=== PATIENT | male | born 1980 | race Caucasian/White ===

== ENCOUNTER 2022-08-22 20:33 | Inpatient (IN) | payer MEDICAID, SELFPAY ==
[2022-08-22 20:11] VITALS: BP 116/57; PULSE 105; RESP 18; TEMP 37.2; O2SAT 99
--- NOTE | 2022-08-22 20:15 | ED.GENADUL_ITS ---
Discharge Plan Disposition Patient Disposition: [facility] INPATIENT Condition: Stable Discharge Details Clinical Impression: Abdominal pain, Bilateral lower extremity edema, Cirrhosis of liver Primary Care Provider: Charito,Local ED Provider: David Ruth and New Rx's Prescriptions: No Action furosemide [Lasix] 40 mg Tablet 60 mg DAILY sennosides [senna] 8.6 mg Tablet 8.6 mg QHS spironolactone 25 mg Tablet 25 mg DAILY trazodone 100 mg Tablet 100 mg QHS pantoprazole 40 mg Tablet,Delayed Release (Dr/Ec) 40 mg PO DAILY oxycodone 5 mg Capsule 5 mg BID docusate sodium [Colace] 100 mg Capsule 100 mg PO BID folic acid 1 mg Tablet 1 mg PO DAILY vitamin B6-vitamin E-magnesium Tablet 25 PO B12 Active 1,000 mcg Tablet,Chewable 500 mcg PO DAILY Medical Decision Making Patient presenting to ED with acute on chronic abdominal pain with history of alcohol cirrhosis. He has increased leg edema which has been worsening since his admission at [facility]. He does report a prior history of ascites which has required drainage. He denies fever, vomiting, diarrhea. His abdomen does appear distended and he is tender in the right lower quadrant. IV is established, laboratory studies sent, CT scan of the abdomen pelvis obtained. Patient is dosed with morphine for pain control pending study results. Patient's laboratory studies with a normal white count. He is anemic with a hemoglobin of 10 but no baseline in our records. Platelet count is normal. Chemistries with some renal insufficiency again no baseline for comparison. Electrolytes are normal except for magnesium slightly low at 1.6. Liver function with somewhat elevated total bilirubin otherwise unremarkable. Lipase normal. Urine negative. CT scan has no ascites present. He does have findings consistent with cirrhosis. He does have a normal appendix. He does have a fat-containing right inguinal hernia but no evidence of obstruction. Given the patient's localized pain to the right lower quadrant I did ask surgery, Dr. Cunha, to review CT scan. She agrees that the appendix appears completely normal. The right inguinal hernia would not require any type of acute intervention at this time. Case discussed with hospitalist given the patient's significant lower extremity edema and worsening abdominal pain in the setting of alcoholic cirrhosis of the liver. Patient is on furosemide and spironolactone with worsening edema. There is no ascites to tap. He will be admitted to hospitalist service for further evaluation and management. Lab Data Lab results reviewed: Yes I reviewed the patient's lab results. HPI General Mode of arrival: EMS . Date/Time Provider Initiated Documentation: 08/22/22 21:30 . Limitations to Documentation: no limitations . Information obtained by: patient and RN notes reviewed . HPI Narrative: Patient presents to ED by ambulance with complaint of abdominal pain, leg edema. Patient released from [facility] 2 days ago and is now in community rehab up here in [place]. He does have a history of alcohol cirrhosis and reports a history of ascites and chronic abdominal pain. He reports that while he was at [place] he had increased abdominal pain and discomfort as well as increased swelling to his lower extremities. He reports that he asked to be sent to ED down there to be evaluated but never was. He is followed by GI at [facility]. He denies fever, cough, chest pain, shortness of breath. He has had decreased oral intake. His pain is different than his usual chronic abdominal pain and is localizing to the right lower quadrant at this point. Denies any back pain. Denies any urinary difficulty. Denies any vomiting or diarrhea. Came to ED tonight because of increased pain in his abdomen. Related Data Home Medications Medication Instructions Recorded Confirmed docusate sodium 100 mg capsule 100 mg PO BID 08/22/22 08/22/22 (Colace) folic acid 1 mg tablet 1 mg PO DAILY 08/22/22 08/22/22 furosemide 40 mg tablet (Lasix) 60 mg DAILY 08/22/22 08/22/22 mecobalamin (vitamin B12) 1,000 500 mcg PO DAILY 08/22/22 08/22/22 mcg chewable tablet (B12 Active) oxycodone 5 mg capsule 5 mg BID 08/22/22 08/22/22 pantoprazole 40 mg tablet,delayed 40 mg PO DAILY 08/22/22 08/22/22 release sennosides 8.6 mg tablet (senna) 8.6 mg QHS 08/22/22 08/22/22 spironolactone 25 mg tablet 25 mg DAILY 08/22/22 08/22/22 trazodone 100 mg tablet 100 mg QHS 08/22/22 08/22/22 vitamin B6-vitamin E-magnesium 25 PO 08/22/22 tablet Allergies Allergy/AdvReac Type Severity Reaction Status Date / Time No Known Allergies Allergy Unverified 08/23/22 01:30 General Stated Complaint: Abd Prob DERICK: 3 Review of Systems Narrative: 09/08 Review of Systems completed and is negative except as stated above in HPI (Systems reviewed: Const, Eyes, ENT, Resp, CV, GI, , MSK, Skin, Neuro) PFSH All Active Problems (Updated 08/23/22 @ 02:01 by David Ruth MD) Abdominal pain (Acute) Bilateral lower extremity edema (Acute) Cirrhosis of liver (Acute) Medical History Cirrhosis of liver GERD (gastroesophageal reflux disease) Surgical History S/P hernia repair Social History Smoking/Tobacco Use Status: Current-Occasional Tobacco Type: cigarettes Smoking risk assessment performed?: Yes Alcohol Intake: former Drug use: Never Substance use type: does not use Do you feel safe at home: Yes Do you feel safe in your relationship?: Yes Exam Narrative Exam Narrative: Const: WDWN male in NAD. HEENT: NC/AT. Normal facial exam. Eyes: Normal conjunctiva and sclera. Neck: Supple. Trachea midline. Lungs: Normal respiratory effort. Lungs are clear. Cor: RRR without murmur/gallop. Good radial pulses. GI: Soft. Seems distended. Tender to palpation RLQ. No guarding. Back: No CVAT Neuro: A+O x 3. Normal speech, mentation, gait. Cranial nerves II - XII grossly intact. No gross motor or sensory deficit. Ext: No C/C. 3+ BLE to thighs Skin: Warm and dry without rash. Course Vital Signs Vital signs: Vital Signs Temperature 99.0 F 08/22/22 20:11 Pulse 105 H 08/22/22 20:11 Respiratory Rate 18 08/22/22 20:11 Blood Pressure 116/57 L 08/22/22 20:11 Pulse Oximetry 99 08/22/22 20:11 Temperature 99.0 F 08/22/22 20:11 Temperature Source Tympanic 08/22/22 20:11 Pulse 105 H 08/22/22 20:11 Respiratory Rate 18 08/22/22 20:11 Blood Pressure 116/57 L 08/22/22 20:11 Blood Pressure Position Supine 08/22/22 20:11 Pulse Oximetry 99 08/22/22 20:11 Oxygen Delivery Method Room Air 08/22/22 20:11 Oxygen Flow Rate 0 08/22/22 20:11 Pain Level 9 08/22/22 20:11
--- NOTE | 2022-08-22 20:30 | DI.CT_ITS ---
Exam(s) CT ABDOMEN PELVIS W EXAM: CT ABDOMEN PELVIS W CLINICAL HISTORY: RLQ abd pain TECHNIQUE: COMPARISON: No exams were available for comparison FINDINGS: CT examination of the abdomen and pelvis was performed with bolus infusion of 100 cc of Omnipaque 350 . Images obtained through the lung bases are unremarkable except for question minimal areas of consol idation and/or atelectasis bases bilaterally.. The liver has a a questionably mildly nodular contour raising the possibility of cirrhosis, with no e vidence of a focal mass. There does appear to be some increased prominence collateral vessels in upp er abdomen, question portal venous hypertension. There is question of wall thickening the stomach, please correlate regarding possibility of gastritis . Spleen is unremarkable in appearance.. Gallbladder and bile ducts are unremarkable. Pancreas is unremarkable in appearance. Adrenals appear normal bilaterally. Kidneys appear normal with no evidence of renal mass, hydronephrosis, or nephrolithiasis. Unremarkab le bladder. There is no evidence of abdominal or pelvic adenopathy. Abdominal aorta is of normal diameter and no abnormality is seen involving major visceral branches.. Appendix is normal. No evidence diverticulitis or bowel obstruction. Small fat containing umbilical hernia and fat and fluid containing right inguinal hernia noted.. Impression: question cirrhosis and portal venous hypertension. Minimal bibasilar pulmonary changes, minimal pneumonitis not excluded. Question gastric wall thickening, please correlate regarding the possibility of gastritis. RADIATION DOSE DELIVERED: 1,088.18mGy.cm Total DLP 1,088.18mGy.cm Total DLP !Error CTDIvol DATA REPOSITORY: All CT scans at this facility are submitted to the National Radiology Data Registry (NRDR) Dose Index Registry (DIR) with the [employer] (A[employer]). RADIATION OPTIMIZATION: All CT scans at this facility use at least one of these dose optimization te chniques: automated exposure control; mA and/or kV adjustment per patient size (includes targeted exa ms where dose is matched to clinical indication); or iterative reconstruction.
[2022-08-22 20:45] LABS: Abs Immature Grans 0.01 10^3/uL (0.0-0.06); HCT 29.3 % (40.0-50.0); HGB 10.1 g/dL (13.5-17.5); MCH 36.2 pg (27.0-33.0); MCHC 34.5 % (32.0-36.0); MCV 105 fL (80-95); MPV 9.7 fL (8.0-11.0); Platelet Count 136 10^3/uL (130-400); RBC 2.79 10^6/uL (4.36-5.78); RDW 12.3 % (11.8-14.1); RDW-SD 47.8 fL; WBC 4.41 10^3/uL (4.4-10.8)
[2022-08-22] MEDS: MORPHine 10 MG/ML VIAL 4 MG IVP (20:48)
[2022-08-22] MEDS: Omnipaque 350 MG/ML 100 ML BTL IV (20:58)
[2022-08-22] MEDS: Normal Saline Flush 10 ML SYR IVP (21:03)
[2022-08-22 21:05] LABS: ALT 44 U/L (16-63); AST 38 U/L (15-37); Albumin 3.7 g/dL (3.4-5.0); Alkaline Phosphatase 110 U/L (46-116); BUN 26 mg/dL (7-18); Bilirubin, Direct 0.4 mg/dL (0.0-0.2); Bilirubin, Total 1.3 mg/dL (0.2-1.0); CREATININE 1.5 mg/dL (0.70-1.30); Calcium 9.4 mg/dL (8.5-10.1); Chloride 100 mmol/L (98-107); Estimated GFR 59.24 (mL/min/1.73m2); Glucose 90 mg/dL (74-106); Lipase 46 U/L (73-393); Magnesium 1.6 mg/dL (1.8-2.4); Potassium 4.2 mmol/L (3.5-5.1); Sodium 135 mmol/L (136-145); Total Protein 6.9 g/dL (6.4-8.2)
[2022-08-22] MEDS: Normal Saline 1,000 ML 125 ML IV (21:09)
[2022-08-22 21:11] LABS: Absolute Basophil Count 0.04 10^3/uL (0.0-0.2); Absolute Eosinophil Count 0.26 10^3/uL (0.0-0.7); Absolute Lymphocyte Count 1.28 10^3/uL (1.2-3.4); Absolute Monocyte Count 0.57 10^3/uL (0.1-0.8); Absolute Neutrophil Count 2.25 10^3/uL (1.2-6.7); Atypical Lymphocytes % 2
[2022-08-22 21:12] LABS: Diff Comment Manual Differential; RBC Morphology Normal
--- NOTE | 2022-08-22 21:28 | DI.VRAD_ITS ---
PROCEDURE INFORMATION: Exam: CT Abdomen And Pelvis With Contrast Exam date and time: 08/22/2022 8:56 PM Age: 41 years old Clinical indication: Other: Rlq abd pain, HX of ascites and cirrhosis; Prior surgery; Surgery date: 6+ months; Surgery type: Hernia; Additional info: Rlq abd painm, HX of ascites and cirrhosis TECHNIQUE: Imaging protocol: Computed tomography of the abdomen and pelvis with contrast. Radiation optimization: All CT scans at this facility use at least one of these dose optimization techniques: automated exposure control; mA and/or kV adjustment per patient size (includes targeted exams where dose is matched to clinical indication); or iterative reconstruction. Contrast material: OMNIPAQUE 350; Contrast volume: 100 ml; Contrast route: INTRAVENOUS (IV); COMPARISON: No relevant prior studies available. FINDINGS: Lungs: Mild bibasilar atelectasis and/or scarring. Diaphragm: Minute decompressed hiatal hernia. Liver: Subtle nodular contour of the liver consistent with reported history of cirrhosis. Liver is at the upper limits of normal for size measuring 20 cm craniocaudad. No mass. Gallbladder and bile ducts: Unremarkable. No calcified stones. No ductal dilation. Pancreas: Unremarkable. No ductal dilation. Spleen: Spleen is enlarged measuring 13.3 cm craniocaudad. No mass. Adrenal glands: No adrenal mass. Kidneys and ureters: Symmetric renal enhancement without mass. No hydronephrosis. Ureters are normal in course and caliber. Stomach and bowel: Proximal stomach decompressed with nonspecific gastric mural thickening. No evidence of bowel obstruction. No focal bowel wall thickening. There is moderate colonic stool burden. Appendix: Within normal limits. Intraperitoneal space: No significant free fluid in the abdomen or pelvis. No free air. Vasculature: No abdominal aortic aneurysm. There are mild splenorenal and gastroesophageal varices. There is also recanalization of the umbilical vein with periumbilical varices. Lymph nodes: Multiple prominent but nonenlarged retroperitoneal lymph nodes as well as at the samuel hepatis. No pathologically enlarged mesenteric or retroperitoneal lymph nodes. Urinary bladder: Unremarkable as visualized. Reproductive: Unremarkable as visualized. Bones/joints: Unremarkable. No acute fracture. Soft tissues: Mild fat within the right inguinal canal with mild low-attenuation fluid within the inguinal canal. There is also small fat containing umbilical/periumbilical hernia. IMPRESSION: 1. Appendix within normal limits. 2. Subtle nodular contour of the liver consistent with reported history of cirrhosis with sequela of portal hypertension as discussed. 3. Moderate colonic stool burden. Correlate for constipation. 4. Mild fat within the right inguinal canal with mild low-attenuation fluid within the right inguinal canal. 5. Proximal stomach decompressed with nonspecific gastric mural thickening. May represent changes of incomplete distension, correlate clinically to exclude acute gastritis. 6. Additional nonacute findings as discussed. Dictated and Authenticated by: Pal Arias MD. Ordering:BARBARA Hernandez MD
[2022-08-22 21:44] LABS: INR 1.2 (0.9-1.1); PTT Activated 35.7 sec (21.0-27.5); Prothrombin Time 12.1 sec (9.3-11.0)
[2022-08-22 22:40] LABS: Bilirubin Negative (Negative); Blood Negative (Negative); Clarity Clear (Clear); Glucose Negative (Negative); Ketones Negative (Negative); Leukocyte Esterase Negative (Negative); Nitrite Negative (Negative); Specific Gravity 1.015 (1.005-1.025)
[2022-08-22] MEDS: Ketorolac 15 MG/ML VIAL IVP (23:43)
[2022-08-23] VITALS (13 sets, daily range): BP systolic 90–100; BP diastolic 50–65; PULSE 74–84; RESP 14–19; TEMP 35.6–37.1; O2SAT 93–97
--- NOTE | 2022-08-23 | DI.US_ITS ---
Exam(s) US EXTREMITY VENOUS BI EXAM: US EXTREMITY VENOUS BI CLINICAL HISTORY: BLE edema, concern for DVT. TECHNIQUE: Ultrasound performed using standard protocol. COMPARISON: No exams were available for comparison FINDINGS: Duplex venous ultrasound was performed according to the usual protocol. The deep veins are freely com pressible throughout and there is normal flow augmentation with manual calf compression. 2D and Doppl er evaluation are unremarkable. IMPRESSION: No evidence of deep venous thrombosis of the right or left lower extremity. DATA REPOSITORY:
[2022-08-23] MEDS: MORPHine 4 MG/ML SYR IVP ×4 (01:31→21:33)
[2022-08-23 01:32] LABS: Source Nasal/Nares
[2022-08-23 01:59] LABS: COVID-19 PCR Negative (Negative)
[2022-08-23] MEDS: Furosemide 40 MG/4 ML VIAL IVP (02:09)
[2022-08-23] MEDS: Normal Saline Flush 10 ML SYR IVP ×5 (03:42→21:34)
--- NOTE | 2022-08-23 04:09 | W.PM.HP.N ---
Date of service: 08/23/22 Time of Service: 04:09 Assessment and Plan Assessment and plan (1) Abdominal pain: Status: Acute Assessment and plan: It is possible that the fat-containing hernia is painful. However, the patient also endorses urinary sx. Will order bladder scans. (2) Bilateral lower extremity edema: Status: Acute Assessment and plan: Suspect due to hypoalbuminemic state. HOwever, will also rule out a DVT. Diurese with combination of IV lasix and increased dose of aldactone. (3) Cirrhosis of liver: Status: Chronic Assessment and plan: As above. Alcoholic cirrhosis. (4) Anemia: Status: Chronic Assessment and plan: Check b12 and folate levels (5) Dysuria: Status: Acute Assessment and plan: No evidence of a UTI by UA. Will check GC/chlamydia urine. The patient states he does not have a h/o herpes. (6) Alcohol abuse: Assessment and plan: States last drinke was >3 weeks ago. Will write for thiamine and MVI and check vitamin B12 and folate levels, as above (7) Tobacco abuse: Assessment and plan: advised to quit. Will provide a nicotine patch. (8) DVT prophylaxis: Status: Acute Assessment and plan: SC heparin (9) Discharge planning issues: Status: Acute Assessment and plan: Full code History of Present Illness History of Present Illness Chief Complaint: Abdominal pain Narrative: Mr Guerrero is a 41 year old male with PMHx of alcoholic cirrhosis with previous history of ascites requiring paracenthesis, as well as h/o pancreatitis, alcohol abuse, alcohol withdrawal seizures in the past, who presented to [facility] ED c/o RLQ pain. He endorses some nausea, but no vomiting, and denies diarrhea. States his stools have been brown and he has not seen blood. His last drink was about 3 weeks ago. He states that he tried to drink himself to to commit suicide and was hospitalized at [facility] for 2-3 weeks. He was discharged 3 days ago and since then has not been drinking. He also endorses dysuria. CT abdomen ruled out acute appendicitis, and surgical review of the CT agreed with that assessment. He does have an inguinal hernia which contains fat and does not require surgical intervention. He did not have ascites by CT. He was found to be edematous. Admission to the hospitalist service was requested for diuresis and management of abdominal pain. Review of Systems All systems reviewed & are unremarkable except as noted in HPI and below PFSH All Active Problems (Updated 08/23/22 @ 04:26 by Ilana Dietz MD) Discharge planning issues (Acute) DVT prophylaxis (Acute) Dysuria (Acute) Anemia (Chronic) Abdominal pain (Acute) Bilateral lower extremity edema (Acute) Cirrhosis of liver (Chronic) Medical History (Updated 08/23/22 @ 04:26 by Ilana Dietz MD) Alcohol abuse Cirrhosis of liver GERD (gastroesophageal reflux disease) Pancreatitis Suicide attempt Tobacco abuse Surgical History (Updated 08/23/22 @ 04:18 by Ilana Dietz MD) S/P abdominal paracentesis S/P hernia repair Family History (Updated 08/23/22 @ 04:17 by Ilana Dietz MD) Mother Heart disease Stroke Diabetes Hypertension Maternal Grandfather Diabetes Hypertension Maternal Grandmother Hypertension Social History Smoking/Tobacco Use Status: Current-Occasional Tobacco Type: cigarettes Smoking risk assessment performed?: Yes Alcohol Intake: former Drug use: Never Substance use type: does not use Do you feel safe at home: Yes Do you feel safe in your relationship?: Yes Meds Allergies and Home Medications Allergies Allergy/AdvReac Type Severity Reaction Status Date / Time No Known Allergies Allergy Unverified 08/23/22 01:30 Home Medications Medication Instructions Recorded Confirmed Type docusate sodium 100 mg capsule 100 mg PO BID 08/22/22 08/22/22 History (Colace) folic acid 1 mg tablet 1 mg PO DAILY 08/22/22 08/22/22 History furosemide 40 mg tablet (Lasix) 60 mg DAILY 08/22/22 08/22/22 History mecobalamin (vitamin B12) 1,000 500 mcg PO DAILY 08/22/22 08/22/22 History mcg chewable tablet (B12 Active) oxycodone 5 mg capsule 5 mg BID 08/22/22 08/22/22 History pantoprazole 40 mg tablet,delayed 40 mg PO DAILY 08/22/22 08/22/22 History release sennosides 8.6 mg tablet (senna) 8.6 mg QHS 08/22/22 08/22/22 History spironolactone 25 mg tablet 25 mg DAILY 08/22/22 08/22/22 History trazodone 100 mg tablet 100 mg QHS 08/22/22 08/22/22 History vitamin B6-vitamin E-magnesium 25 PO 08/22/22 History tablet Exam Narrative Exam Narrative: General: Somnolent middle-aged male who keeps falling asleep in the middle of a sentence, A&Ox3, NAD Neurological: A&Ox3, no focal deficits Psychiatric: Somnolent - difficult to fully assess. Denies SI. Skin: Visible skin intact HEENT: Atraumatic, normocephalic, EOMI, MMM, clear oropharynx, poor dental hygiene, no submandibular or cervical lymphadenopathy, no goiter or JVD Cardiovascular: RRR, no m/r/g Lungs: CTAB Gastrointestinal: soft, tender in BLQ, R>L Genitourinary: deferred Extremities: 2+ BLE edema, symmetric, no c/c. Results Imaging Additional studies: CT abdomen/pelvis w/ contrats: 1. Appendix within normal limits. 2. Subtle nodular contour of the liver consistent with reported history of cirrhosis with sequela of portal hypertension as discussed. 3. Moderate colonic stool burden. Correlate for constipation. 4. Mild fat within the right inguinal canal with mild low-attenuation fluid within the right inguinal canal. 5. Proximal stomach decompressed with nonspecific gastric mural thickening. May represent changes of incomplete distension, correlate clinically to exclude acute gastritis. 6. Additional nonacute findings as discussed. Labs Result diagrams: 08/22/22 20:40 08/22/22 20:40 Labs: Laboratory Results - last 24 hr 08/22/22 08/22/22 08/22/22 20:40 20:40 20:40 WBC 4.41 RBC 2.79 L Hgb 10.1 L Hct 29.3 L MCV 105 H MCH 36.2 H MCHC 34.5 RDW 12.3 Plt Count 136 MPV 9.7 Immature Gran % 0.0 Neutrophils % 51.0 Lymphocytes % 27.0 Atypical Lymphs % 2 Monocytes % 13.0 Eosinophils % 6.0 Basophils % 1.0 Nucleated RBC % 0.0 Absolute Neutrophils 2.25 Absolute Lymphocytes 1.28 Absolute Monocytes 0.57 Absolute Eosinophils 0.26 Absolute Basophils 0.04 RBC Morphology Normal PT 12.1 H INR 1.2 H APTT 35.7 H Sodium 135 L Potassium 4.2 Chloride 100 Carbon Dioxide 29.0 Anion Gap 6.0 BUN 26 H Creatinine 1.5 H Est GFR (CKD-EPI 2020) 59.24 Glucose 90 Calcium 9.4 Magnesium 1.6 L Total Bilirubin 1.3 H Conjugated Bilirubin 0.4 H AST 38 H ALT 44 Alkaline Phosphatase 110 Total Protein 6.9 Albumin 3.7 Lipase 46 Urine Color Urine Clarity Urine pH Ur Specific [place] Urine Protein Urine Ketones Urine Blood Urine Nitrite Urine Bilirubin Urine Urobilinogen Ur Leukocyte Esterase Urine Glucose COVID-19 Source SARS-CoV-2 (PCR) 08/22/22 08/23/22 22:35 01:28 WBC RBC Hgb Hct MCV MCH MCHC RDW Plt Count MPV Immature Gran % Neutrophils % Lymphocytes % Atypical Lymphs % Monocytes % Eosinophils % Basophils % Nucleated RBC % Absolute Neutrophils Absolute Lymphocytes Absolute Monocytes Absolute Eosinophils Absolute Basophils RBC Morphology PT INR APTT Sodium Potassium Chloride Carbon Dioxide Anion Gap BUN Creatinine Est GFR (CKD-EPI 2020) Glucose Calcium Magnesium Total Bilirubin Conjugated Bilirubin AST ALT Alkaline Phosphatase Total Protein Albumin Lipase Urine Color Yellow Urine Clarity Clear Urine pH 7.0 Ur Specific [place] 1.015 Urine Protein Negative Urine Ketones Negative Urine Blood Negative Urine Nitrite Negative Urine Bilirubin Negative Urine Urobilinogen 1.0 H Ur Leukocyte Esterase Negative Urine Glucose Negative COVID-19 Source Nasal/Nares SARS-CoV-2 (PCR) Negative Last Vital Signs Temp 36.4 C L 08/23/22 02:32 Pulse 78 08/23/22 02:32 Resp 19 08/23/22 02:32 BP 98/60 L 08/23/22 02:32 Pulse Ox 97 08/23/22 02:32 PAWSS Have you Been Recently Intoxicated or Drunk Within the Last 30 days?: Yes Have you Ever Experienced Previous Episodes of Alcohol Withdrawal?: Yes Have you ever Experienced Withdrawal Seizures?: No Have you ever Experienced Delirium Tremens(DT)s?: No Have you ever undergone Alcohol Rehabilitation Treatment (i.e, inpt ot outpatient treatment programs)?: Yes Have you ever Experienced Blackouts?: No Have you ever Combined Alcohol with other Downers within the last 90 days?: Yes Have you ever Combined Alcohol with any other Substance of Abuse during the last 90 days?: Yes Positive Blood Alcohol level on Presentation? [PCS.BAL]: No Evidence of Increased Autonomic Activity (i.e. HR>120, tremor, sweating, agitation, nausea)?: No Result: 5
[2022-08-23] MEDS: Heparin 5,000 UNITS/ML VIAL 5000 UNITS SC ×3 (05:24→21:20)
[2022-08-23 07:40] LABS: Abs Immature Grans 0.01 10^3/uL (0.0-0.06); Absolute Basophil Count 0.05 10^3/uL (0.0-0.2); Absolute Eosinophil Count 0.31 10^3/uL (0.0-0.7); Absolute Lymphocyte Count 1.08 10^3/uL (1.2-3.4); Absolute Monocyte Count 0.62 10^3/uL (0.1-0.8); Absolute Neutrophil Count 1.18 10^3/uL (1.2-6.7); Basophils % 1.5; Eosinophils % 9.5; HCT 29.8 % (40.0-50.0); HGB 10.3 g/dL (13.5-17.5); Immature Grans % 0.3; Lymphocytes % 33.2; MCH 35.8 pg (27.0-33.0); MCHC 34.6 % (32.0-36.0); MCV 104 fL (80-95); MPV 9.9 fL (8.0-11.0); Monocytes % 19.1; Neutrophils % 36.4; Platelet Count 130 10^3/uL (130-400); RBC 2.88 10^6/uL (4.36-5.78); RDW 12.3 % (11.8-14.1); RDW-SD 46.5 fL; WBC 3.25 10^3/uL (4.4-10.8)
[2022-08-23] MEDS: Furosemide 40 MG/4 ML VIAL 60 MG IVP (08:04)
[2022-08-23] MEDS: Thiamine 100 MG TAB PO (08:05)
[2022-08-23] MEDS: oxyCODONE 5 MG TAB PO ×2 (08:05→19:45)
[2022-08-23] MEDS: Folic Acid 1 MG TAB PO (08:05)
[2022-08-23] MEDS: Pantoprazole 40 MG TABCR PO (08:05)
[2022-08-23] MEDS: Multivitamin TAB 1 TAB PO (08:05)
[2022-08-23] MEDS: Cyanocobalamin 500 MCG TAB PO (08:05)
[2022-08-23] MEDS: Spironolactone 50 MG TAB PO ×2 (08:05→19:45)
[2022-08-23 08:27] LABS: Anion Gap 7.5 mmol/L (3-11); BUN 26 mg/dL (7-18); CO2 28.5 mmol/L (21.0-32.0); CREATININE 1.4 mg/dL (0.70-1.30); Calcium 9.4 mg/dL (8.5-10.1); Chloride 104 mmol/L (98-107); Estimated GFR 64.36 (mL/min/1.73m2); Glucose 88 mg/dL (74-106); Magnesium 1.8 mg/dL (1.8-2.4); Potassium 3.9 mmol/L (3.5-5.1); Sodium 140 mmol/L (136-145)
[2022-08-23 08:43] LABS: Folate 19.2 ng/mL (8.6-20.0); Vitamin B12 452 pg/mL (193-986)
[2022-08-23] MEDS: Acetaminophen 325 MG TAB PO ×3 (09:50→19:44)
--- NOTE | 2022-08-23 10:04 | PDOC.CMIN ---
- If Service Date Differs Date of service: 08/23/22 Time of Service: 10:04 Care Management Initial Assess REASON FOR HOSPITALIZATION:: Anasarca, Abdominal pain PAST MEDICAL HISTORY/PAST SURGICAL HISTORY:: All Active Problems (Updated 08/23/22 @ 04:26 by Ilana Dietz MD). Discharge planning issues (Acute). DVT prophylaxis (Acute). Dysuria (Acute). Anemia (Chronic). Abdominal pain (Acute). Bilateral lower extremity edema (Acute). Cirrhosis of liver (Chronic). Medical History (Updated 08/23/22 @ 04:26 by Ilana Dietz MD). Alcohol abuse. Cirrhosis of liver. GERD (gastroesophageal reflux disease). Pancreatitis. Suicide attempt. Tobacco abuse. Surgical History (Updated 08/23/22 @ 04:18 by Ilana Dietz MD). S/P abdominal paracentesis. S/P hernia repair PREVIOUS FUNCTIONAL STATUS/SOCIAL/FAMILY SUPPORTS:: Mc lives in [facility] in a sober house following his discharge from an inpatient substance use treatment program. He is originally from [place]. Mc has no children and identifies his mother and sister as his strongest supports. They live in [place]. He receives SSDI but no other services in the community. CURRENT FUNCTIONAL STATUS:: Mc was sitting up in bed when CM met with him. He was awake and polite, but did not volunteer much information. Mc has reportedly had a lot of pain today but he has also been hypotensive, so administering effective pain medicine has been challenging. Mc informed CM that he noticed at home that his abdomen and legs were swelling and this has happened before when he needed to be tapped (paracentesis). That, and increasing abdominal pain, was why he presented to the hospital. ADVANCE DIRECTIVES:: on file. Fay Dennis (mother) [facility] Has patient been provided with info about the portal/API?: Yes Did the patient sign up for the portal?: No CODE STATUS:: Full Code INSURANCE COVERAGE / FINANCIAL ISSUES:: Medicaid CURRENT HOME/COMMUNITY SERVICES/EQUIPMENT:: SSDI PRIMARY CARE PHYSICIAN:: none locally POTENTIAL DISCHARGE NEEDS:: establish with a new PCP PATIENT/FAMILY EDUCATION NEEDS:: Review of discharge instructions, limitations, activity, follow up plan, medications, Ask Me Three TRANSPORTATION:: via private vehicle with mother PLAN:: Anticipate Mc will be discharged home with no new services. He will follow up with the community provider identified by [facility] prior to discharge and transport via private vehicle.CM will offer support to Mc and assess for ongoing discharge concerns.
--- NOTE | 2022-08-23 11:35 | NUR.NOTE ---
Nursing Note: At approximately 1135 on 08/23/22, this RN answered a phone call from Fay Dennis (pt.'s mother - on HIPAA). RN updated pt.'s mother regarding pt.'s mentation, VS, pain level and pain management techniques (medications), CT scan results, plan of care, discharge plan, etc. Pt.'s mother verbalized understanding and presented with a few questions that were answered. Pt.'s mother was asking about the hospital's visitor policy and visiting hours and was given the appropriate information. Pt.'s mother states that she may call back later and ask to be transferred in to pt.'s room to speak with him on the phone.
[2022-08-23] MEDS: Ketorolac 30 MG/ML VIAL IVP (17:38)
[2022-08-23] MEDS: Docusate Sodium 100 MG CAP PO (19:45)
[2022-08-23] MEDS: Senna TAB 1 TAB PO (21:20)
[2022-08-23] MEDS: traZODone 100 MG TAB PO (21:20)
[2022-08-24 03:03] VITALS: BP 102/62; PULSE 72; RESP 16; TEMP 37.4; O2SAT 98
[2022-08-24] MEDS: MORPHine 4 MG/ML SYR IVP (03:33)
[2022-08-24] MEDS: Normal Saline Flush 10 ML SYR IVP (03:33)
[2022-08-24 07:00] LABS: Absolute Basophil Count 0.05 10^3/uL (0.0-0.2); Absolute Eosinophil Count 0.42 10^3/uL (0.0-0.7); Absolute Lymphocyte Count 1.17 10^3/uL (1.2-3.4); Absolute Monocyte Count 0.61 10^3/uL (0.1-0.8); Absolute Neutrophil Count 1.37 10^3/uL (1.2-6.7); Basophils % 1.4; Eosinophils % 11.6; HCT 29.9 % (40.0-50.0); HGB 9.9 g/dL (13.5-17.5); Lymphocytes % 32.3; MCH 35.2 pg (27.0-33.0); MCHC 33.1 % (32.0-36.0); MCV 106 fL (80-95); MPV 9.9 fL (8.0-11.0); Monocytes % 16.9; Neutrophils % 37.8; Platelet Count 135 10^3/uL (130-400); RBC 2.81 10^6/uL (4.36-5.78); RDW 12.2 % (11.8-14.1); WBC 3.62 10^3/uL (4.4-10.8)
[2022-08-24 07:22] LABS: ALT 35 U/L (16-63); AST 30 U/L (15-37); Albumin 3.1 g/dL (3.4-5.0); Alkaline Phosphatase 102 U/L (46-116); Anion Gap 4.6 mmol/L (3-11); BUN 34 mg/dL (7-18); CO2 30.4 mmol/L (21.0-32.0); CREATININE 1.6 mg/dL (0.70-1.30); Calcium 9.2 mg/dL (8.5-10.1); Chloride 104 mmol/L (98-107); Estimated GFR 54.83 (mL/min/1.73m2); Glucose 83 mg/dL (74-106); Sodium 139 mmol/L (136-145); Total Protein 6.2 g/dL (6.4-8.2)
[2022-08-24 07:50] VITALS: BP 95/52; PULSE 77; RESP 16; TEMP 36.6; O2SAT 99
--- NOTE | 2022-08-24 08:43 | PDOC.CMPRO ---
- If Service Date Differs Date of service: 08/24/22 Time of Service: 08:43 Care Management Progress Note S/O: A: Mc is a 41 year old man admitted on 08/22/22 with abdominal pain P:Anticipate Mc will be discharged home with no new services. He will follow up with the community provider identified by [facility] prior to discharge and transport via private vehicle. will offer support to Mc and assess for ongoing discharge concerns.
[2022-08-24] MEDS: Pantoprazole 40 MG TABCR PO (08:57)
[2022-08-24] MEDS: Multivitamin TAB 1 TAB PO (08:57)
[2022-08-24] MEDS: Thiamine 100 MG TAB PO (08:57)
[2022-08-24] MEDS: Cyanocobalamin 500 MCG TAB PO (08:57)
[2022-08-24] MEDS: Folic Acid 1 MG TAB PO (08:57)
[2022-08-24] MEDS: oxyCODONE 5 MG TAB PO (08:58)
[2022-08-24] MEDS: Spironolactone 50 MG TAB PO (08:58)
--- NOTE | 2022-08-24 09:48 | W.PM.DS.N ---
Date of service: 08/24/22 Time of Service: 09:48 DS: Diagnosis Discharge Diagnosis (1) Abdominal pain: Status: Acute Asessment and Plan: No evidence of SBP. No fever or elevated WBC count + questionable gastric wall thickening on CT; gastritis likely. Cont pantoprazole. Improved and tolerating oral intake. (2) Bilateral lower extremity edema: Status: Acute Asessment and Plan: Secondary to cirrhosis. He is aware of need to limit Na intake. Increased his spironolactone to 50mg BID. Will decrease lasix to 20mg daily. (3) Cirrhosis of liver: Status: Chronic Asessment and Plan: He will continue to follow up with his physician in [place] that manages this. (4) Anemia: Status: Chronic Asessment and Plan: Hgb 10.1 > 10.3 > 9.9. Secondary to chronic alcohol abuse and cirrhosis. Monitor. (5) Dysuria: Status: Acute Asessment and Plan: UA negative. (6) Alcohol abuse: Asessment and Plan: He is now in a sobriety house. Discharge Plan Disposition Patient Disposition: HOME Condition: Stable Discharge Details Reason For Visit: Anasarca, acute on chronic abdominal pain Admit Date/Time: 08/22/22 23:38 Admit Provider: Ilana Dietz Attending Provider: Ilana Dietz [facility]: Mr Guerrero is a 41 year old male with PMHx of alcoholic cirrhosis with previous history of ascites requiring paracenthesis, as well as h/o pancreatitis, alcohol abuse, alcohol withdrawal seizures in the past, who presented to [facility] ED c/o RLQ pain. He endorses some nausea, but no vomiting, and denies diarrhea. States his stools have been brown and he has not seen blood. His last drink was about 3 weeks ago. He states that he tried to drink himself to to commit suicide and was hospitalized at [facility] for 2-3 weeks. He was discharged 3 days ago to a sober house in [facility] and since then has not been drinking. He also endorses dysuria. CT abdomen ruled out acute appendicitis, and surgical review of the CT agreed with that assessment.? He does have an inguinal hernia which contains fat and does not require surgical intervention. He did not have ascites by CT. He was found to be edematous. Admission to the hospitalist service was requested for diuresis and management of abdominal pain. Volume overload suspected to be secondary to hypoalbuminemic state. DVT ruled out. Diurese with combination of IV lasix and increased dose of aldactone. He diuresed well; he notes particular improvement in the edema of his feet. His creatinine remained stable: 1.5>1.4>1.6. No supplemental O2 requirement. See Diagnosis He should follow up with on-call provider in 1-2 weeks. He has not established with a local PCP. Home Meds and New Rx's Prescriptions: No Action furosemide [Lasix] 40 mg Tablet 60 mg DAILY sennosides [senna] 8.6 mg Tablet 8.6 mg QHS spironolactone 25 mg Tablet 25 mg DAILY trazodone 100 mg Tablet 100 mg QHS pantoprazole 40 mg Tablet,Delayed Release (Dr/Ec) 40 mg PO DAILY oxycodone 5 mg Capsule 5 mg BID docusate sodium [Colace] 100 mg Capsule 100 mg PO BID folic acid 1 mg Tablet 1 mg PO DAILY vitamin B6-vitamin E-magnesium Tablet 25 PO B12 Active 1,000 mcg Tablet,Chewable 500 mcg PO DAILY Discharge Instructions Instructions: Cirrhosis (DC) Activity:: Activity as Tolerated Equipment/Supplies:: No Equipment Needed Diet:: Low Sodium Discharge Orders Discharge Orders: Discharge Order (Routine); Ordered 08/24/22 Ordered By: Larry Guzman DS: Summary Time Spent with Patient providing and/or coordinating discharge services: Greater than 30 minutes Status at Discharge Functional status at discharge: independent ambulation Overall status at discharge: patient is progressing back to baseline Mental Status: mental status grossly normal Speech and Movement: speech clear Mood: euthymic mood Affect: blunted Exam Narrative Exam Narrative: General: male. Alert. Cooperative. Neurological: A&Ox3, no focal deficits Psychiatric:affect flat. Speech clear. HEENT:sclera clear. MMM Cardiovascular: RRR, no m/r/g Lungs: CTAB Gastrointestinal: soft, tender in BLQ, R>L; mild. Extremities: BLE nonpitting edema. No calf tenderness. Tenderness along bilateral anterior tibias. Psych Mental Status: mental status grossly normal Speech and Movement: speech clear Mood: euthymic mood Affect: blunted DS: Data Vitals/I&O Vitals and I&O: Vital Signs Temperature 36.6 C 08/24/22 07:50 Temperature Source Tympanic 08/24/22 07:50 Pulse 77 08/24/22 07:50 Pulse Rhythm Regular 08/23/22 21:57 Respiratory Rate 16 08/24/22 07:50 Respiratory Effort 08/23/22 21:57 Respiratory Depth Shallow 08/23/22 21:57 Respiratory Pattern Normal 08/23/22 21:57 Blood Pressure 95/52 L 08/24/22 07:50 Blood Pressure Position Supine 08/22/22 20:11 Pulse Oximetry 99 08/24/22 07:50 Oxygen Delivery Method Room Air 08/24/22 07:50 Oxygen Flow Rate 0 08/24/22 07:50 Pain Level 8 08/24/22 08:58 Comment 08/24/22 07:50 Intake & Output 08/23/22 08/23/22 08/24/22 11:59 23:59 11:59 Intake Total 1037.5 / 1699.5 662 / 1699.5 Output Total 2850 / 3300 450 / 3300 401 / 401 Balance -1812.5 / -1600.5 212 / -1600.5 -401 / -401 Weight 90.718 kg Intake: IV 637.5 / 637.5 Oral 400 / 1062 662 / 1062 Output: Urine 2850 / 3300 450 / 3300 401 / 401 Other: Urine Color Pale Yellow Yellow Yellow Urine Appearance Clear Clear Clear Urine Odor Normal None Comment Void x1 in the urinal. bladder scan =23ml Voiding Methods Urinal Urinal Urinal Data Completed and Pending Labs on day of discharge: Labs from last 24 hours 08/24/22 08/24/22 06:03 06:03 WBC 3.62 L RBC 2.81 L Hgb 9.9 L Hct 29.9 L MCV 106 H MCH 35.2 H MCHC 33.1 RDW 12.2 Plt Count 135 MPV 9.9 Immature Gran % 0.0 Neutrophils % 37.8 Lymphocytes % 32.3 Monocytes % 16.9 Eosinophils % 11.6 Basophils % 1.4 Nucleated RBC % 0.0 Absolute Neutrophils 1.37 Absolute Lymphocytes 1.17 L Absolute Monocytes 0.61 Absolute Eosinophils 0.42 Absolute Basophils 0.05 Sodium 139 Potassium 4.0 Chloride 104 Carbon Dioxide 30.4 Anion Gap 4.6 BUN 34 H Creatinine 1.6 H Est GFR (CKD-EPI 2020) 54.83 Glucose 83 Calcium 9.2 Total Bilirubin 1.0 AST 30 ALT 35 Alkaline Phosphatase 102 Total Protein 6.2 L Albumin 3.1 L PFSH All Active Problems Discharge planning issues (Acute) DVT prophylaxis (Acute) Dysuria (Acute) Anemia (Chronic) Abdominal pain (Acute) Bilateral lower extremity edema (Acute) Cirrhosis of liver (Chronic) Medical History Alcohol abuse Cirrhosis of liver GERD (gastroesophageal reflux disease) Pancreatitis Suicide attempt Tobacco abuse Surgical History S/P abdominal paracentesis S/P hernia repair Family History Mother Heart disease Stroke Diabetes Hypertension Maternal Grandfather Diabetes Hypertension Maternal Grandmother Hypertension Social History Smoking/Tobacco Use Status: Current-Occasional Tobacco Type: cigarettes Smoking risk assessment performed?: Yes Alcohol Intake: former Drug use: Never Substance use type: does not use Do you feel safe at home: Yes Do you feel safe in your relationship?: Yes
[2022-08-24 11:14] VITALS: BP 108/66; PULSE 80; RESP 16; TEMP 36.8; O2SAT 98
[2022-08-24] MEDS: Heparin 5,000 UNITS/ML VIAL 5000 UNITS SC (14:11)
[2022-08-24] MEDS: Ketorolac 30 MG/ML VIAL IM (14:11)
[2022-08-24 15:38] LABS: Chlamydia Result Negative (Negative); GC Result Negative (Negative)
--- NOTE | 2022-08-24 16:24 | PDOC.MHCN_ITS ---
Date of service: 08/24/22 Time of Service: 13:40 PHQ-9 Over the last 2 weeks, how often have you been bothered by any of the following problems? 1. Little interest or pleasure in doing things: nearly every day 2. Feeling down, depressed, or hopeless: more than half the days 3. Trouble falling or staying asleep, or sleeping too much: nearly every day (The last 4 years) 4. Feeling tired or having little energy: nearly every day 5. Poor appetite or overeating: several days 6. Feeling bad about yourself - or that you are a failure or have let yourself and your family down: nearly every day (Client reports forever) 7. Trouble concentrating on things, such as reading the newspaper or watching television: nearly every day 8. Moving or speaking so slowly that other people could have noticed? - Or the opposite - being so fidgety or restless that you have been moving around a lot more than usual: nearly every day 9. Thoughts that you would be better off or of hurting yourself in some way: several days (Client reports one time about 4-5 weeks ago) Total score: 22 If you checked off any problems, how difficult have these problems made it for you to do your work, take care of things at home, or get along with other people?: somewhat difficult Source: Developed by Drs. David Sevilla, Keiko Gonzalez, Dank Cox and colleagues, with an educational ana from [employer]. Suicide Severity Rate CSSRS Have you wished you were or wished you could go to sleep and not wake up?: Yes Have you actually had any thoughts of killing yourself?: No CSSRS3 Have you ever done anything, started to do anything or prepared to do anything to end your life?: Yes CSSRS4 Was this within the past three months?: Yes Screening Score Total Score: 6 Screening: Positive Mental Health Emergency Note Release HS release signed:: No Reason for Visit Client presents to [facility] ED on 08/23/2022 via [place] with chief complaint of severe abdominal pain. Client had been living at [facility] and received a phone call today that he was not welcome to return there as he was too much of a liability. After hearing the news client made vague SI statements and became very tearful. In the last 2 weeks has the pt presented for ES prior to today?: No Client Information Client is: New Well Housed: No,status: Not homeless, Unstable housing Non Suicidal Self Injury Current: No History: yes, Client reports hx of self harm via excessive alcohol intake and recreational drugs. Safety Risk/Harm to Self or Others Current Ideation to Harm Self or Others: No Risk: Does risk to harm exist?: No Duty to warn indicated: No Asssessment/Mental Status Appearance: Disheveled Attitude: Cooperative and Other (Client was cooperative throughout most of the assessment, however towards the end states: I am done talking to you. ) Behavior: Unremarkable Speech: Soft and Slow Affect: Flat Mood: Sad, Stressed, Depressed, Anxious and Irritable Thought process: Unremarkable Hallucinations: No Delusions: No Attention: Wandering Perception: Not impaired Orientation: Fully orientated Memory: Intact Insight: Fair Judgement: Fair Neurovegetative Symptoms Sleep: Decrease (Client reports that he has interrupted sleep.) Appetitie: Decrease (Client reports poor appetite. ) Interests: Decrease (Client reports: nothing anymore.) Energy: Decrease (Client reports very low energy) Libido: Not applicable Substance Use: Other (Client reports that he has been sober for 5 weeks, prior he reports that he would drink at least 1/5th of liquor daily. ) Do you use nicotine?: No Have you used substances in the last 7 days?: No Additional Issues: Assaultive/Threatening Behavior: No Medical Concerns: No Client engaged in active self harm w/weapon: No Threatening to run away: No Child reported abuse/neglect: No Voluntarily presenting for services: Yes Domestic violence is a concern: No Extreme Psychosis or extreme behavior is present: No Impression Client is laying down in hospital bed when this song writer arrives via zoom. Client appears to be guarded and is tearful throughout assessment. Client reports that he had extreme abdominal pain yesterday and thought he was doing the right thing by coming to the hospital. Client reports that a couple of hours ago he learned that he was not going to be able back to his temporary housing at the [employer] program. Client states prior to him coming to [facility] he had been at [place] for 2 weeks and was at [facility] 3weeks prior to that. Client reports that he has minimal natural supports and is not able to identify strengths or what he needs right now. Client appears to be struggling with housing and refuses resources by this song writer. Resources Reosurces reviewed and given:: Other (Client refused resources when this song writer attempted to provide them. ) Plan/Disposition Recommended Disposition: Other. Plan: This song writer was attempting to create safety plan with client to complete at the least check-in phone calls, however client states: I am done talking to you. This song writer was able to get clients phone number so outreach will be attempted. Person reported agreement to plan: No Reports/communication Outcome discussed with: ED/Personnel (Verbal passover given to [facility] animal care supervisor Emily Velasquez. )
--- NOTE | 2022-08-24 18:09 | PDOC.CMDIS ---
- If Service Date Differs Date of service: 08/24/22 Time of Service: 18:09 LACE Index Scoring Tool - Questions: Length of Stay (in days): 2 Acuity (Admit via E.D.?): Yes Comorbidities: Liver or Renal Disease E.D. Visits: 1 - Answers: Total Score: 11 Risk of Readmission: High Risk Care Management Discharge Reason for Hospitalization: Anasarca, Abdominal pain Discharge Plan: Mc was living at [facility] at the time of his admission to the hospital. He was ready for discharge and called to notify them he was returning today and was told he could not come back. Reportedly he was told he was too much of a liability. Mc became very sad and cried. CM requested a mental health assessment as Mc has recently been at [facility] and [place] for SI.He was screened and cleared by [facility]. They will follow up with check in calls for the next couple of days. Mc will stay with his mother in [place] for the time being and she will transport him home. Patient/Family Education Needs: Review of discharge instructions, limitations, activity, follow up plan, medications, Ask Me Three
== END 2022-08-24 14:21 | disposition home or self-care (01) | DRG 392 ==
LOC: ER 08-23 02:01 → MS 08-23 02:29
PROVIDERS: Family Medicine; Admitting Provider Internal Medicine; Emergency Provider Emergency Medicine; Visit Provider Internal Medicine
DX: K29.70 Gastritis, unspecified, without bleeding (principal); K70.30 Alcoholic cirrhosis of liver without ascites; D64.9 Anemia, unspecified; K40.90 Unilateral inguinal hernia, without obstruction or gangrene, not specified as recurrent; R60.0 Localized edema; K21.9 Gastro-esophageal reflux disease without esophagitis; F17.210 Nicotine dependence, cigarettes, uncomplicated; R30.0 Dysuria
CPT/HCPCS: 36415; 80048; 80053; 80076; 83690; 87491; 87591; 87635; 96361; 96374; 96375; 99285; 74177; 81003; 82607; 82746; 83735; 85025; 85610; 85730; 93970; 99223; 99239; J1644; J1885; J1940; J2270; J3490

== ENCOUNTER 2022-09-08 14:46 | Emergency (ER) | payer MEDICAID, SELFPAY ==
[2022-09-08] VITALS (9 sets, daily range): BP systolic 106–123; BP diastolic 61–85; PULSE 64–90; RESP 16–20; TEMP 36.6–37; O2SAT 98–100
--- NOTE | 2022-09-08 16:00 | DI.CT_ITS ---
Exam(s) CT ABDOMEN PELVIS W EXAM: CT ABDOMEN PELVIS W CLINICAL HISTORY: RLQ pain TECHNIQUE: Imaging Protocol: Axial computed tomography images with coronal and sagittal reformatted images were created and reviewed CONTRAST MATERIAL: Intravenous: Omnipaque 350 Contrast volume:100 mL Oral: No COMPARISON: CT CT ABDOMEN PELVIS W from 08/22/2022 FINDINGS: ABDOMEN: Lung Bases: Mild dependent atelectasis, left greater than right. Liver: There is a lobular contour of the liver. No hepatic mass is seen. Gastroesophageal and upper abdominal varices are identified. No measurable mass. Portal, Superior Mesenteric, and Splenic Veins: Unremarkable. Gallbladder and Biliary Tract: No radiodense calculus or dilation. Pancreas: Normal density, no abnormal calcifications or inflammatory process. Spleen: Mildly enlarged. Adrenals: No masses seen. Kidneys: Normal size, contour and axis. No radiodense stones or obstructive uropathy. No masses seen. Abdominal Aorta: Abdominal portion non-dilated. Bowel: No obstruction or bowel wall thickening. No evidence of appendicitis. Peritoneal Cavity: There is a small amount of perihepatic ascites. No free air. Lymph Nodes: Within normal limits. Bones: Within normal limits for the patient's age. Soft Tissues: There is a fat containing paraumbilical hernia. PELVIS: Bladder: Symmetric distention, no gross wall thickening. Reproductive Organs: Mildly enlarged prostate gland. Lymph Nodes: Within normal limits. Bones: Within normal limits for the patient's age. IMPRESSION: 1. No acute abdominal or pelvic process. No evidence of appendicitis. 2. Cirrhosis of the liver with evidence of portal hypertension. 3. Stable fat containing umbilical hernia. RADIATION DOSE DELIVERED: 1,010.1mGy.cm Total DLP DATA REPOSITORY: All CT scans at this facility are submitted to the National Radiology Data Registry (NRDR) Dose Index Registry (DIR) with the [employer] (ACR). RADIATION OPTIMIZATION: All CT scans at this facility use at least one of these dose optimization te chniques: automated exposure control; mA and/or kV adjustment per patient size (includes targeted exa ms where dose is matched to clinical indication); or iterative reconstruction.
--- NOTE | 2022-09-08 16:07 | ED.GENADUL_ITS ---
Discharge Plan Disposition Patient Disposition: HOME Condition: Improving Discharge Details Clinical Impression: Abdominal pain in male, Right inguinal hernia Primary Care Provider: Charito,Local ED Provider: Robinson Coleman Home Meds and New Rx's Prescriptions: Continued furosemide [Lasix] 40 mg Tablet 60 mg DAILY sennosides [senna] 8.6 mg Tablet 8.6 mg PO QHS spironolactone 25 mg Tablet 25 mg PO DAILY trazodone 100 mg Tablet 100 mg PO QHS pantoprazole 40 mg Tablet,Delayed Release (Dr/Ec) 40 mg PO DAILY oxycodone 5 mg Capsule 5 mg BID docusate sodium [Colace] 100 mg Capsule 100 mg PO BID folic acid 1 mg Tablet 1 mg PO DAILY vitamin B6-vitamin E-magnesium Tablet 1 tab PO DAILY B12 Active 1,000 mcg Tablet,Chewable 500 mcg PO DAILY Discharge Instructions Instructions: Abdominal Pain (ED) Additional Instructions: Home to rest this evening. You may use the provided oxycodone to increase your daily dose from 5 to 10 mg twice daily if needed for severe or breakthrough pain. Liquid diet and then may slowly progress to a bland diet tomorrow. Apply ice to right lower abdomen as needed for comfort. Avoid lifting greater than 10 pounds at a time. Return if develop a fever, vomiting, worsening pain, or any other acute concerns Medical Decision Making 41-year-old male presents from home with day 2 of the gradual onset of right lower quadrant abdominal pain associated with nausea and anorexia. Has not had vomiting or fever. Seems to be worse with movement. He states he has not had significant fluid retention over baseline and has continued to take his medications including spironolactone. He has a history of alcoholic cirrhosis. Patient arrives to the ER afebrile with unremarkable vital signs. IV access established, screening labs obtained and he is given analgesia and referred for CT imaging. The patient's laboratories are reassuring his white count is 5, hematocrit 37, platelets 153. INR is 1.2. Venous lactate normal. Electrolytes and basic chemistries unremarkable. AST is 30, ALT 35, total bili 1.0. Lipase is negative at 57, urinalysis reassuring and alcohol level was negative. CT scan of the abdomen and pelvis shows evidence of cirrhosis, no evidence of acute appendicitis, no free fluid or free air. Mild fat within the right inguinal canal noted. I do question some mild edematous changes of the bowel in the right lower quadrant. Patient was also evaluated by the SBIRT provider who recommended a mental health evaluation due to some ongoing depression. Patient was evaluated by the housekeeping worker and a plan for outpatient counseling and intake for per formed and completed. Patient improved with analgesia. As above there is no evidence of acute surgical findings. Discussed with him a trial of home management. He is stable and improving. HPI General Mode of arrival: ambulatory . Date/Time Provider Initiated Documentation: 09/08/22 14:53 . Limitations to Documentation: no limitations . Information obtained by: patient . History of Present Illness 41 year old M presents to the emergency department with the chief complaint of Right lower quadrant abdominal pain since yesterday, described as moderate, Quality is described as dull, and is localized to the abdomen and right. Patient reports no radiation. Patient started experiencing this hour(s) and it has been constant. Rest improves symptom(s), Movement worsens symptoms . Patient notes denies cough and fever/chills. Patient did receive the following treatments prior to arrival, none Related Data Home Medications Medication Instructions Recorded Confirmed docusate sodium 100 mg capsule 100 mg PO BID 08/22/22 09/08/22 (Colace) folic acid 1 mg tablet 1 mg PO DAILY 08/22/22 09/08/22 furosemide 40 mg tablet (Lasix) 60 mg DAILY 08/22/22 09/08/22 mecobalamin (vitamin B12) 1,000 500 mcg PO DAILY 08/22/22 09/08/22 mcg chewable tablet (B12 Active) oxycodone 5 mg capsule 5 mg BID 08/22/22 09/08/22 pantoprazole 40 mg tablet,delayed 40 mg PO DAILY 08/22/22 09/08/22 release sennosides 8.6 mg tablet (senna) 8.6 mg PO QHS 08/22/22 09/08/22 spironolactone 25 mg tablet 25 mg PO DAILY 08/22/22 09/08/22 trazodone 100 mg tablet 100 mg PO QHS 08/22/22 09/08/22 vitamin B6-vitamin E-magnesium 1 tab PO DAILY 08/22/22 09/08/22 tablet Allergies Allergy/AdvReac Type Severity Reaction Status Date / Time No Known Allergies Allergy Unverified 08/23/22 01:30 General Stated Complaint: Abd Prob DERICK: 3 Review of Systems Narrative: No recent illness, immunized against COVID-19 PFSH All Active Problems (Updated 09/08/22 @ 18:51 by Robinson Coleman MD) Abdominal pain in male (Acute) Right inguinal hernia (Acute) Anemia (Chronic) Bilateral lower extremity edema (Acute) Cirrhosis of liver (Chronic) Medical History Alcohol abuse Cirrhosis of liver GERD (gastroesophageal reflux disease) Pancreatitis Suicide attempt Tobacco abuse Surgical History S/P abdominal paracentesis S/P hernia repair Family History Mother Heart disease Stroke Diabetes Hypertension Maternal Grandfather Diabetes Hypertension Maternal Grandmother Hypertension Social History Smoking/Tobacco Use Status: Current-Occasional Tobacco Type: cigarettes Smoking risk assessment performed?: Yes Alcohol Intake: former Drug use: Occasionally Substance use type: marijuana Do you feel safe at home: Yes Do you feel safe in your relationship?: Yes Exam Narrative Exam Narrative: GEN: awake, alert, oriented 3. Pleasant, well groomed, interactive. HEAD: Normocephalic, atraumatic ENT: Mucous membranes moist, oropharynx unremarkable, External ear exam unremarkable EYES: PERRL, EOMI NECK: Full ROM, no NAFISA, no menigismus CHEST/RESP: Nontender, clear to auscultation bilateral, no wheeze/rhonchi/rales CARDIOVASCULAR: RRR, no murmur, rub zulma. 2+ Rad pulse bilateral ABDOMEN: Soft, tender in the right lower quadrant, no mass. +Bowel sounds EXT: Full ROM, no edema, no rash Neuro: Grossly normal neurologic exam, conversant, interactive. Psych: Speech fluent, thoughts congruent, affect normal Course Vital Signs Vital signs: Vital Signs Temperature 36.6 C 09/08/22 14:54 Pulse 74 09/08/22 14:54 Respiratory Rate 20 09/08/22 14:54 Blood Pressure 106/61 09/08/22 14:54 Pulse Oximetry 99 09/08/22 14:54 Temperature 36.6 C 09/08/22 14:54 Temperature Source Temporal Artery Scan 09/08/22 14:54 Pulse 74 10/14/22 14:54 Respiratory Rate 20 09/08/22 14:54 Respiratory Effort Non-Labored 09/08/22 14:58 Blood Pressure 106/61 09/08/22 14:54 Blood Pressure Position Sitting 09/08/22 14:54 Pulse Oximetry 99 09/08/22 14:54 Oxygen Delivery Method Room Air 09/08/22 14:54 Oxygen Flow Rate 0 09/08/22 14:54 Pain Level 8 09/08/22 14:54
[2022-09-08 16:33] LABS: Lactate 1.4 mmol/L (0.6-1.4)
[2022-09-08] MEDS: MORPHine 4 MG/ML SYR IVP ×2 (16:33→18:30)
[2022-09-08] MEDS: Normal Saline 1,000 ML 125 ML IV (16:35)
[2022-09-08 16:40] LABS: Abs Immature Grans 0.02 10^3/uL (0.0-0.06); Absolute Basophil Count 0.07 10^3/uL (0.0-0.2); Absolute Lymphocyte Count 1.22 10^3/uL (1.2-3.4); Absolute Monocyte Count 0.48 10^3/uL (0.1-0.8); Basophils % 1.4; Eosinophils % 5.9; HGB 12.8 g/dL (13.5-17.5); Immature Grans % 0.4; MCH 35.2 pg (27.0-33.0); MCHC 34.6 % (32.0-36.0); MCV 102 fL (80-95); MPV 9.4 fL (8.0-11.0); Monocytes % 9.4; Neutrophils % 58.9; Platelet Count 153 10^3/uL (130-400); RBC 3.64 10^6/uL (4.36-5.78); RDW 11.8 % (11.8-14.1); RDW-SD 44.3 fL; WBC 5.09 10^3/uL (4.4-10.8)
[2022-09-08 16:41] LABS: Bilirubin Negative (Negative); Blood Negative (Negative); Clarity Clear (Clear); Glucose Negative (Negative); Ketones Negative (Negative); Leukocyte Esterase Negative (Negative); Nitrite Negative (Negative); Specific Gravity 1.025 (1.005-1.025); Urobilinogen >=8.0 EU/dL (Up TO 0.2)
[2022-09-08 16:54] LABS: INR 1.2 (0.9-1.1); PTT Activated 35.2 sec (21.0-27.5); Prothrombin Time 11.8 sec (9.3-11.0)
[2022-09-08 16:56] LABS: ALT 35 U/L (16-63); AST 30 U/L (15-37); Albumin 4.2 g/dL (3.4-5.0); Alkaline Phosphatase 112 U/L (46-116); Anion Gap 6.4 mmol/L (3-11); BUN 13 mg/dL (7-18); Bilirubin, Direct 0.4 mg/dL (0.0-0.2); CO2 28.6 mmol/L (21.0-32.0); CREATININE 1.3 mg/dL (0.70-1.30); Calcium 9.5 mg/dL (8.5-10.1); Chloride 103 mmol/L (98-107); ETHANOL BLOOD < 3.0 mg/dL (<10); Estimated GFR 70.34 (mL/min/1.73m2); Glucose 88 mg/dL (74-106); Lipase 57 U/L (73-393); Potassium 4.3 mmol/L (3.5-5.1); Sodium 138 mmol/L (136-145); Total Protein 7.8 g/dL (6.4-8.2)
[2022-09-08] MEDS: Omnipaque 350 MG/ML 100 ML BTL IJ (17:24)
--- NOTE | 2022-09-08 18:21 | DI.VRAD_ITS ---
PROCEDURE INFORMATION: Exam: CT Abdomen And Pelvis With Contrast Exam date and time: 09/08/2022 5:13 PM Age: 41 years old Clinical indication: Other: Rlq pain TECHNIQUE: Imaging protocol: Computed tomography of the abdomen and pelvis with contrast. Radiation optimization: All CT scans at this facility use at least one of these dose optimization techniques: automated exposure control; mA and/or kV adjustment per patient size (includes targeted exams where dose is matched to clinical indication); or iterative reconstruction. Contrast material: 350; Contrast volume: 100 ml; Contrast route: INTRAVENOUS (IV); COMPARISON: CT ABDOMEN PELVIS W 08/22/2022 8:56 PM FINDINGS: Lungs: Bibasilar dependent subsegmental atelectasis is noted. Liver: Subtle nodular contour of the liver consistent with the history of cirrhosis. Fatty infiltration is again noted. No mass. Gallbladder and bile ducts: Unremarkable. No calcified stones. No ductal dilation. Pancreas: Unremarkable. No ductal dilation. Spleen: Spleen is mildly enlarged, unchanged. Adrenal glands: No adrenal mass. Kidneys and ureters: Symmetric renal enhancement without mass. No hydronephrosis. Ureters are normal in course and caliber. Stomach and bowel: No evidence of bowel obstruction. No focal bowel wall thickening. Appendix: Well-visualized and appears normal. Intraperitoneal space: No significant free fluid in the abdomen or pelvis. No free air. Vasculature: No abdominal aortic aneurysm. There are mild splenorenal and gastroesophageal varices. There is also recanalization of the umbilical vein with periumbilical varices. Lymph nodes: Multiple prominent but nonenlarged retroperitoneal lymph nodes as well as at the samuel hepatis. No pathologically enlarged mesenteric or retroperitoneal lymph nodes. Urinary bladder: Unremarkable as visualized. Reproductive: Unremarkable as visualized. Bones/joints: Unremarkable. No acute fracture. Soft tissues: Mild fat within the right inguinal canal with mild low-attenuation fluid within the inguinal canal. There is also small fat containing umbilical/periumbilical hernia, unchanged. IMPRESSION: 1. No evidence of acute appendicitis. 2. Cirrhosis of the liver and sequela of portal hypertension, not significantly changed from the prior exam. 3. Fat containing umbilical hernia is again noted. Dictated and Authenticated by: Monroe Lucio MD. Ordering:CHRIST Bowers MD
== END 2022-09-08 19:07 | disposition home or self-care (01) ==
PROVIDERS: Emergency Provider Emergency Medicine
DX: K40.90 Unilateral inguinal hernia, without obstruction or gangrene, not specified as recurrent (principal); K74.60 Unspecified cirrhosis of liver
CPT/HCPCS: 80053; 80076; 83690; 96361; 96374; 96376; 99285; 74177; 80320; 81003; 83605; 85025; 85610; 85730; 99284; J2270; J3490

== ENCOUNTER 2022-09-24 14:54 | Emergency (ER) | payer MEDICAID, SELFPAY ==
[2022-09-24] VITALS (19 sets, daily range): BP systolic 109–118; BP diastolic 67–78; PULSE 73–82; RESP 12–16; TEMP 36.9; O2SAT 96–99
--- NOTE | 2022-09-24 14:45 | RT.EKG_ITS ---
APPROVED REPORT Exam: Resting ECG Reason for Exam: syncope Patient Location: E HR:81 bpm ECG Measurements Heart Rate 81 AXIS NH 147 P 51 QRSd 103 QRS 3 QT 375 T 40 QTc 436 Conclusion Sinus rhythm...normal P axis, V-rate 60- 99 sinus rhythm, normal axis, normal intervals. non ischemic
--- NOTE | 2022-09-24 15:15 | DI.CT_ITS ---
Exam(s) CT HEAD WO EXAM: CT HEAD WO CLINICAL HISTORY: Seizure-like activity with fall and head injury. TECHNIQUE: Imaging Protocol: Axial computed tomography images with coronal and sagittal reformatted images were created and reviewed COMPARISON: No exams were available for comparison FINDINGS: Ventricles and Extra axial spaces: Normal in size and morphology for the patient's age. Hemorrhage: None. Cerebral parenchyma: Normal. Midline shift: None. Brainstem/Cerebellum: Normal. Calvarium: Normal. Visualized Paranasal sinuses/Mastoids: Clear. Soft Tissues: Unremarkable. IMPRESSION: No acute intracranial process. RADIATION DOSE DELIVERED: Total DLP DATA REPOSITORY: All CT scans at this facility are submitted to the National Radiology Data Registry (NRDR) Dose Index Registry (DIR) with the [employer] (ACR). RADIATION OPTIMIZATION: All CT scans at this facility use at least one of these dose optimization te chniques: automated exposure control; mA and/or kV adjustment per patient size (includes targeted exa ms where dose is matched to clinical indication); or iterative reconstruction.
--- NOTE | 2022-09-24 15:30 | DI.CT_ITS ---
Exam(s) CT ABDOMEN PELVIS W EXAM: CT ABDOMEN PELVIS W CLINICAL HISTORY: RUQ abd pain. TECHNIQUE: Imaging Protocol: Axial computed tomography images with coronal and sagittal reformatted images were created and reviewed CONTRAST MATERIAL: Intravenous: Omnipaque 350 Contrast volume:100 ml Oral: no COMPARISON: CT CT ABDOMEN PELVIS W from 09/08/2022 FINDINGS: ABDOMEN: Lung Bases: Normal where visualized. Right gynecomastia. Mild esophageal varices. Liver: Mildly enlarged, fatty infiltration. No measurable mass. Recanalized umbilical vein. Gallbladder and biliary tract: No radiodense calculus or dilation. Pancreas: Normal density, no abnormal calcifications or inflammatory process. Spleen: Enlarged, stable. Kidneys: Normal size, contour and axis. No radiodense stones or obstructive uropathy. No masses seen. Adrenal glands: No masses seen. Abdominal Aorta: Abdominal portion non-dilated. Soft tissue: Fatty containing umbilical hernia. PELVIS: Bladder: No gross wall thickening. No calculi.No focal mass. Bowel: No obstruction or bowel wall thickening. Appendix normal. Peritoneal cavity: No ascites, collection or mesenteric inflammatory response. Bones: Within normal limits for age. Reproductive organs: Within normal limits. Lymph nodes: Unremarkable. Impression: Findings of portal hypertension and hepatic splenomegaly. No acute abnormality. RADIATION DOSE DELIVERED: Total DLP DATA REPOSITORY: All CT scans at this facility are submitted to the National Radiology Data Registry (NRDR) Dose Index Registry (DIR) with the [employer] (ACR). RADIATION OPTIMIZATION: All CT scans at this facility use at least one of these dose optimization te chniques: automated exposure control; mA and/or kV adjustment per patient size (includes targeted exa ms where dose is matched to clinical indication); or iterative reconstruction.
--- NOTE | 2022-09-24 15:33 | NUR.NOTE ---
Nursing Note: Patient had a pint of alcohol to drink yesterday. patient states previously having seizures from alcohol withdrawl. Patient had severe pain that felt like someone squeezing in his LRQ that radiated up to the upper quadrant, then patient had seizure.
[2022-09-24] MEDS: Normal Saline 1,000 ML 1000 ML IV (15:37)
[2022-09-24 15:39] LABS: Abs Immature Grans 0.01 10^3/uL (0.0-0.06); Absolute Basophil Count 0.05 10^3/uL (0.0-0.2); Absolute Eosinophil Count 0.32 10^3/uL (0.0-0.7); Absolute Lymphocyte Count 1.25 10^3/uL (1.2-3.4); Absolute Neutrophil Count 2.89 10^3/uL (1.2-6.7); Eosinophils % 6.3; HCT 36.3 % (40.0-50.0); HGB 12.4 g/dL (13.5-17.5); Immature Grans % 0.2; Lymphocytes % 24.4; MCH 34.4 pg (27.0-33.0); MCHC 34.2 % (32.0-36.0); MCV 101 fL (80-95); MPV 9.7 fL (8.0-11.0); Monocytes % 11.7; Neutrophils % 56.4; Platelet Count 150 10^3/uL (130-400); RDW-SD 44.5 fL; WBC 5.12 10^3/uL (4.4-10.8)
--- NOTE | 2022-09-24 15:41 | ED.GENADUL_ITS ---
Discharge Plan Disposition Patient Disposition: HOME Condition: Stable Discharge Details Clinical Impression: Abdominal pain, Syncope Primary Care Provider: Charito,Local ED Provider: Keyana Orlando Home Meds and New Rx's Prescriptions: Continued furosemide [Lasix] 40 mg Tablet 60 mg DAILY sennosides [senna] 8.6 mg Tablet 8.6 mg PO QHS spironolactone 25 mg Tablet 25 mg PO DAILY trazodone 100 mg Tablet 100 mg PO QHS pantoprazole 40 mg Tablet,Delayed Release (Dr/Ec) 40 mg PO DAILY oxycodone 5 mg Capsule 5 mg BID folic acid 1 mg Tablet 1 mg PO DAILY vitamin B6-vitamin E-magnesium Tablet 1 tab PO DAILY B12 Active 1,000 mcg Tablet,Chewable 500 mcg PO DAILY hydroxyzine pamoate 50 mg capsule 1 cap PO QID Label Comments: TAKE 1 CAPSULE BY MOUTH EVERY 4 HOURS NEEDED. NOT TO EXCEED 3/24 tramadol 50 mg tablet 1 tab PO HS Label Comments: TAKE 1 TABLET BY MOUTH EVERY 8 HOURS NEEDED FOR PAIN. MAXIMUM DAILY DOSE IS 150 MG gabapentin 800 mg Tablet 800 mg PO TID sertraline 25 mg tablet 3 tab PO DAILY Label Comments: TAKE 3 TABLETS BY MOUTH DAILY lactulose 10 gram/15 mL solution Discharge Instructions Instructions: Syncope (ED), Abdominal Pain (ED) Additional Instructions: Please follow-up with your primary care provider regarding possible ultrasound of your gallbladder. CT shows possible surrounding fluid of your gallbladder. No significant change from 2 weeks ago. Follow up with primary care provider in 3-5 days. Return to ED sooner if any worsening or concerns. Increase oral fluids. Please take the pain medications with food no driving or operating heavy machinery while taking the medication. Discharge Data Discharge Date/Time-TO BE ENTERED AT DEPARTURE: 09/24/22 17:25 Medical Decision Making 41-year-old male presents to the ER with chief complaint of seizure-like activity/syncopal episode x2 prior to arrival. Patient states that he began with some right-sided abdominal pain which proceeded his initial loss of consciousness approximately 20 minutes prior to arrival followed by a witnessed episode of loss of consciousness in the car where his sister saw him slumped over and having seizure-like activity in the car on the way over here. He reports a history of seizures however he does not take any seizure medications. He does have a past medical history of liver cirrhosis, alcohol abuse, right inguinal hernia and anemia. Work-up ordered by my colleague prior to my arrival, head CT ordered by my colleague and labs. I did add on a CT abdomen pelvis due to the abdominal pain which is worsened and ordered Zofran and morphine. Differential diagnosis includes but not limited to syncope, seizure, alcohol withdrawal, appendicitis, ascites CBC shows no leukocytosis chronic appearing anemia with hemoglobin 12.4 hematocrit 36.3 MCV 101 MCH 34.4 CMP shows BUN 20 magnesium 1.6 total bilirubin 1.3 AST is 40 ALT 45 alk phos 94 lipase within normal limits 56 ethyl alcohol less than 3.0. Ammonia added onto labs. CTs are largely unchanged from previous. Radiologist does recommend a ultrasound of the gallbladder to rule out biliary disease. Bilirubin slightly elevated at 1.3, lipase is within normal limits. No leukocytosis. I do feel this patient is appropriate for outpatient follow-up. He is remained hemodynamically stable and alert and oriented throughout stay. Patient discharged with to go Zofran and 4 tablets of oxycodone. Discussed home care and strict return instructions, verbalized understanding. Instructed to follow-up. This text was generated using [employer] dictation system, please disregard any oddities of phrase or misspellings. Medical Records Medical records reviewed: Yes I reviewed the patient's medical records. Imaging Data Radiologic Study: Imaging: CT Scan Radiologist's impression: FINDINGS: Brain: Normal. No hemorrhage. Unremarkable white matter. No mass effect. Cerebral ventricles: No ventriculomegaly. Paranasal sinuses: Mucous retention cyst of the right maxillary sinus. No air-fluid level is identified. Mastoid air cells: Visualized mastoid air cells are well aerated. Bones/joints: Unremarkable. No acute fracture. Soft tissues: Unremarkable. IMPRESSION: No acute intracranial abnormality is appreciated. Radiologic Study #2: Imaging: CT Scan Radiologist's impression: FINDINGS: Liver: Fatty liver, slightly enlarged. Possible trace pericholecystic fluid versus artifact from focal hepatic sparing. Overall gallbladder fossa appearances are unchanged compared to previous exam. Gallbladder and bile ducts: See Liver finding. Pancreas: Normal. No ductal dilation. Spleen: Splenomegaly. Adrenal glands: Normal. No mass. Kidneys and ureters: Normal. No hydronephrosis. Stomach and bowel: Unremarkable. No obstruction. No mucosal thickening. Appendix: No evidence of appendicitis. Intraperitoneal space: Unremarkable. No free air. No significant fluid collection. Vasculature: Unremarkable. No abdominal aortic aneurysm. Lymph nodes: Unremarkable. No enlarged lymph nodes. Urinary bladder: Unremarkable as visualized. Reproductive: Unremarkable as visualized. Bones/joints: Unremarkable. No acute fracture. Soft tissues: Right-sided gynecomastia. Fat containing periumbilical hernia again seen with vascular foci consistent with recanalized umbilical vein. IMPRESSION: 1. Possible gallbladder disease. Recommend sonography. 2. Findings of concern for portal hypertension presumably related to underlying cirrhosis. Thank you for allowing us to participate in the care of your patient. Dictated and Authenticated by: Yady Flores MD Lab Data Lab results reviewed: Yes I reviewed the patient's lab results. Labs: Laboratory Tests Range/Units 09/24/22 09/24/22 09/24/22 15:10 15:10 16:04 WBC (4.4-10.8) 10^3/uL 5.12 RBC (4.36-5.78) 10^6/uL 3.60 L Hgb (13.5-17.5) g/dL 12.4 L Hct (40.0-50.0) % 36.3 L MCV (80-95) fL 101 H MCH (27.0-33.0) pg 34.4 H MCHC (32.0-36.0) % 34.2 RDW (11.8-14.1) % 12.0 Plt Count (130-400) 10^3/uL 150 MPV (8.0-11.0) fL 9.7 Immature Gran % 0.2 Neutrophils % 56.4 Lymphocytes % 24.4 Monocytes % 11.7 Eosinophils % 6.3 Basophils % 1.0 Nucleated RBC % (0.0-0.3) % 0.0 Absolute Neutrophils (1.2-6.7) 10^3/uL 2.89 Absolute Lymphocytes (1.2-3.4) 10^3/uL 1.25 Absolute Monocytes (0.1-0.8) 10^3/uL 0.60 Absolute Eosinophils (0.0-0.7) 10^3/uL 0.32 Absolute Basophils (0.0-0.2) 10^3/uL 0.05 Sodium (136-145) mmol/L 138 Potassium (3.5-5.1) mmol/L 3.9 Chloride (98-107) mmol/L 102 Carbon Dioxide (21.0-32.0) mmol/L 27.7 Anion Gap (3-11) mmol/L 8.3 BUN (7-18) mg/dL 20 H Creatinine (0.70-1.30) mg/dL 1.3 Est GFR (CKD-EPI 2020) (mL/min/1.73m2) 70.34 Glucose (74-106) mg/dL 94 Calcium (8.5-10.1) mg/dL 9.5 Magnesium (1.8-2.4) mg/dL 1.6 L Total Bilirubin (0.2-1.0) mg/dL 1.3 H AST (15-37) U/L 40 H ALT (16-63) U/L 45 Alkaline Phosphatase (46-116) U/L 94 Ammonia (11-32) umol/L < 10 L Total Protein (6.4-8.2) g/dL 7.6 Albumin (3.4-5.0) g/dL 4.1 Lipase (73-393) U/L 56 Urine Color (Yellow) Urine Clarity (Clear) Urine pH (5-8) Ur Specific Holiday (1.005-1.025) Urine Protein (Negative) mg/dL Urine Ketones (Negative) mg/dL Urine Blood (Negative) Urine Nitrite (Negative) Urine Bilirubin (Negative) Urine Urobilinogen (Up TO 0.2) EU/dL Ur Leukocyte Esterase (Negative) Urine Glucose (Negative) mg/dL Ethyl Alcohol (<10) mg/dL < 3.0 Range/Units 09/24/22 16:30 WBC (4.4-10.8) 10^3/uL RBC (4.36-5.78) 10^6/uL Hgb (13.5-17.5) g/dL Hct (40.0-50.0) % MCV (80-95) fL MCH (27.0-33.0) pg MCHC (32.0-36.0) % RDW (11.8-14.1) % Plt Count (130-400) 10^3/uL MPV (8.0-11.0) fL Immature Gran % Neutrophils % Lymphocytes % Monocytes % Eosinophils % Basophils % Nucleated RBC % (0.0-0.3) % Absolute Neutrophils (1.2-6.7) 10^3/uL Absolute Lymphocytes (1.2-3.4) 10^3/uL Absolute Monocytes (0.1-0.8) 10^3/uL Absolute Eosinophils (0.0-0.7) 10^3/uL Absolute Basophils (0.0-0.2) 10^3/uL Sodium (136-145) mmol/L Potassium (3.5-5.1) mmol/L Chloride (98-107) mmol/L Carbon Dioxide (21.0-32.0) mmol/L Anion Gap (3-11) mmol/L BUN (7-18) mg/dL Creatinine (0.70-1.30) mg/dL Est GFR (CKD-EPI 2020) (mL/min/1.73m2) Glucose (74-106) mg/dL Calcium (8.5-10.1) mg/dL Magnesium (1.8-2.4) mg/dL Total Bilirubin (0.2-1.0) mg/dL AST (15-37) U/L ALT (16-63) U/L Alkaline Phosphatase (46-116) U/L Ammonia (11-32) umol/L Total Protein (6.4-8.2) g/dL Albumin (3.4-5.0) g/dL Lipase (73-393) U/L Urine Color (Yellow) Yellow Urine Clarity (Clear) Clear Urine pH (5-8) 6.5 Ur Specific Holiday (1.005-1.025) 1.015 Urine Protein (Negative) mg/dL Negative Urine Ketones (Negative) mg/dL Negative Urine Blood (Negative) Negative Urine Nitrite (Negative) Negative Urine Bilirubin (Negative) Negative Urine Urobilinogen (Up TO 0.2) EU/dL 0.2 Ur Leukocyte Esterase (Negative) Negative Urine Glucose (Negative) mg/dL Negative Ethyl Alcohol (<10) mg/dL HPI General Mode of arrival: wheelchair . Date/Time Provider Initiated Documentation: 09/24/22 14:59 . Limitations to Documentation: no limitations . Information obtained by: patient, RN notes reviewed and old records reviewed . HPI Narrative: 41-year-old male presents to the ER with chief complaint of seizure-like activity/syncopal episode x2 prior to arrival. Patient states that he began with some right-sided abdominal pain which proceeded his initial loss of consciousness approximately 20 minutes prior to arrival followed by a witnessed episode of loss of consciousness in the car where his sister saw him slumped over and having seizure-like activity in the car on the way over here. He reports a history of seizures however he does not take any seizure medications. He does have a past medical history of liver cirrhosis, alcohol abuse, right inguinal hernia and anemia. He does endorse drinking 1/5 of liquor last night. He has had history of abdominal paracentesis and hernia repair. Patient was seen here approximately 2 weeks ago for abdominal pain and her work-up is largely negative did have some ascites. Related Data Home Medications Medication Instructions Recorded Confirmed folic acid 1 mg tablet 1 mg PO DAILY 08/22/22 09/24/22 furosemide 40 mg tablet (Lasix) 60 mg DAILY 08/22/22 09/24/22 mecobalamin (vitamin B12) 1,000 500 mcg PO DAILY 08/22/22 09/24/22 mcg chewable tablet (B12 Active) oxycodone 5 mg capsule 5 mg BID 08/22/22 09/24/22 pantoprazole 40 mg tablet,delayed 40 mg PO DAILY 08/22/22 09/24/22 release sennosides 8.6 mg tablet (senna) 8.6 mg PO QHS 08/22/22 09/24/22 spironolactone 25 mg tablet 25 mg PO DAILY 08/22/22 09/24/22 trazodone 100 mg tablet 100 mg PO QHS 08/22/22 09/24/22 vitamin B6-vitamin E-magnesium 1 tab PO DAILY 08/22/22 09/24/22 tablet gabapentin 800 mg tablet 800 mg PO TID 09/24/22 09/24/22 hydroxyzine pamoate 50 mg capsule 1 cap PO QID 09/24/22 09/24/22 lactulose 10 gram/15 mL oral ml 09/24/22 09/24/22 solution sertraline 25 mg tablet 3 tab PO DAILY 09/24/22 09/24/22 tramadol 50 mg tablet 1 tab PO HS 09/24/22 09/24/22 Allergies Allergy/AdvReac Type Severity Reaction Status Date / Time No Known Allergies Allergy Unverified 09/24/22 15:12 General Stated Complaint: Seizure DEIRCK: 3 Review of Systems All systems reviewed & are unremarkable except as noted in HPI and below Constitutional Constitutional: Denies body ache(s), Denies chills and Denies fever(s) Cardiovascular Cardiovascular: Denies chest pain, Reports syncope and Denies dyspnea Respiratory Respiratory: Denies cough and Denies dyspnea Gastrointestinal Gastrointestinal: Reports abdominal pain, Denies diarrhea, Reports nausea and Denies vomiting Genitourinary Genitourinary: Denies dysuria and Denies urinary urgency Neurologic Neurologic: Reports as per HPI, Reports syncope and Reports convulsions PFSH All Active Problems (Updated 09/24/22 @ 16:53 by Keyana Orlando NP) Abdominal pain in male (Acute) Right inguinal hernia (Acute) Abdominal pain (Acute) Syncope (Chronic) Anemia (Chronic) Bilateral lower extremity edema (Acute) Cirrhosis of liver (Chronic) Medical History Alcohol abuse Cirrhosis of liver GERD (gastroesophageal reflux disease) Pancreatitis Suicide attempt Tobacco abuse Surgical History S/P abdominal paracentesis S/P hernia repair Family History Mother Heart disease Stroke Diabetes Hypertension Maternal Grandfather Diabetes Hypertension Maternal Grandmother Hypertension Social History Smoking/Tobacco Use Status: Current every day Tobacco Type: cigarettes Smoking risk assessment performed?: Yes Alcohol Intake: current Alcohol Intake frequency: a few times a week Alcohol type: hard liquor Drug use: Daily Substance use type: marijuana Do you feel safe at home: Yes Do you feel safe in your relationship?: Yes Additional Social history: lives with mom and sister, sister in room. Exam Narrative Exam Narrative: Constitutional: Alert and oriented x3. Appears stated age. Normal body habitus. Head: Normocephalic, no trauma. Eyes: Pupils PERRL, Red reflex noted, EOM's intact. Eyelids symmetrical without lesions, discharge, or swelling. ENT: Bilateral TM's WNL, External ear normal to inspection, no mastoid TTP, swelling, or erythema, Nasal turbinates WNL, no nasal discharge. Normal dentition, Posterior pharynx WNL, no exudate. Chest: RRR, Normal S1, S2, distal pulses intact. Resp: Lungs clear to auscultation bilaterally, no wheezes, rales, or rhonchi. Abdomen: Soft, , Normoactive bowel sounds all 4 quads. Umbilical hernia noted, tenderness with palpation of the right lower quadrant. Musculoskeletal: Unable to assess gait,4/5 strength to all four extremities. No tremors noted. Skin: No suspicious rashes or lesions. Capillary refill less than 2 sec. Neurologic: Cranial nerves II-XII intact. Alert and oriented x 3. Motor: No deficits noted. Sensory: Intact bilaterally all 4 extremities. Reflexes: DTR's intact bilaterally.. Hematologic/Lymphatic: No ecchymosis, no lymphadenopathy. Course Vital Signs Vital signs: Vital Signs Temperature 36.9 C 09/24/22 14:57 Pulse 82 09/24/22 14:57 Blood Pressure 110/72 09/24/22 14:57 Pulse Oximetry 98 09/24/22 14:57 Temperature 36.9 C 09/24/22 14:57 Temperature Source Skin 09/24/22 14:57 Pulse 82 09/24/22 14:57 Respiratory Effort Non-Labored 09/24/22 15:18 Respiratory Depth Normal 09/24/22 15:18 Respiratory Pattern Normal 09/24/22 15:18 Blood Pressure 110/72 09/24/22 14:57 Pulse Oximetry 98 09/24/22 14:57 Oxygen Delivery Method Room Air 09/24/22 14:57 Oxygen Flow Rate 0 09/24/22 14:57 Pain Level 10 09/24/22 14:57 Comment 09/24/22 14:57 PAWSS Have you Been Recently Intoxicated or Drunk Within the Last 30 days?: Yes Have you Ever Experienced Previous Episodes of Alcohol Withdrawal?: Yes Have you ever Experienced Withdrawal Seizures?: Yes Have you ever Experienced Delirium Tremens(DT)s?: Yes Have you ever undergone Alcohol Rehabilitation Treatment (i.e, inpt ot outpatient treatment programs)?: Yes Have you ever Experienced Blackouts?: Yes Have you ever Combined Alcohol with other Downers within the last 90 days?: Yes Have you ever Combined Alcohol with any other Substance of Abuse during the last 90 days?: No Positive Blood Alcohol level on Presentation? [PCS.BAL]: Unable to Obtain Evidence of Increased Autonomic Activity (i.e. HR>120, tremor, sweating, agitation, nausea)?: No Result: 6
[2022-09-24] MEDS: MORPHine 10 MG/ML VIAL 2 MG IVP (15:49)
[2022-09-24] MEDS: Ondansetron 4 MG/2 ML VIAL IVP (15:49)
[2022-09-24 15:53] LABS: ALT 45 U/L (16-63); AST 40 U/L (15-37); Albumin 4.1 g/dL (3.4-5.0); Alkaline Phosphatase 94 U/L (46-116); Anion Gap 8.3 mmol/L (3-11); BUN 20 mg/dL (7-18); Bilirubin, Total 1.3 mg/dL (0.2-1.0); CO2 27.7 mmol/L (21.0-32.0); CREATININE 1.3 mg/dL (0.70-1.30); Calcium 9.5 mg/dL (8.5-10.1); Chloride 102 mmol/L (98-107); Estimated GFR 70.34 (mL/min/1.73m2); Glucose 94 mg/dL (74-106); Lipase 56 U/L (73-393); Magnesium 1.6 mg/dL (1.8-2.4); Potassium 3.9 mmol/L (3.5-5.1); Sodium 138 mmol/L (136-145); Total Protein 7.6 g/dL (6.4-8.2)
[2022-09-24 15:57] LABS: ETHANOL BLOOD < 3.0 mg/dL (<10)
[2022-09-24] MEDS: Normal Saline Flush 10 ML SYR IVP (16:06)
[2022-09-24] MEDS: Omnipaque 350 MG/ML 100 ML BTL IJ (16:12)
[2022-09-24 16:23] LABS: Ammonia < 10 umol/L (11-32)
--- NOTE | 2022-09-24 16:23 | DI.VRAD_ITS ---
PROCEDURE INFORMATION: Exam: CT Head Without Contrast Exam date and time: 09/24/2022 4:13 PM Age: 41 years old Clinical indication: Other: Seizure-like activity with fall and head injury TECHNIQUE: Imaging protocol: Computed tomography of the head without contrast. COMPARISON: No relevant prior studies available. FINDINGS: Brain: Normal. No hemorrhage. Unremarkable white matter. No mass effect. Cerebral ventricles: No ventriculomegaly. Paranasal sinuses: Mucous retention cyst of the right maxillary sinus. No air-fluid level is identified. Mastoid air cells: Visualized mastoid air cells are well aerated. Bones/joints: Unremarkable. No acute fracture. Soft tissues: Unremarkable. IMPRESSION: No acute intracranial abnormality is appreciated. Dictated and Authenticated by: David Loja MD. Ordering:HIWOT Pearson MD
--- NOTE | 2022-09-24 16:38 | DI.VRAD_ITS ---
PROCEDURE INFORMATION: Exam: CT Abdomen And Pelvis With Contrast Exam date and time: 09/24/2022 4:17 PM Age: 41 years old Clinical indication: Other: Ruq abd pain TECHNIQUE: Imaging protocol: Computed tomography of the abdomen and pelvis with contrast. COMPARISON: CT ABDOMEN PELVIS W 09/08/2022 5:13 PM FINDINGS: Liver: Fatty liver, slightly enlarged. Possible trace pericholecystic fluid versus artifact from focal hepatic sparing. Overall gallbladder fossa appearances are unchanged compared to previous exam. Gallbladder and bile ducts: See Liver finding. Pancreas: Normal. No ductal dilation. Spleen: Splenomegaly. Adrenal glands: Normal. No mass. Kidneys and ureters: Normal. No hydronephrosis. Stomach and bowel: Unremarkable. No obstruction. No mucosal thickening. Appendix: No evidence of appendicitis. Intraperitoneal space: Unremarkable. No free air. No significant fluid collection. Vasculature: Unremarkable. No abdominal aortic aneurysm. Lymph nodes: Unremarkable. No enlarged lymph nodes. Urinary bladder: Unremarkable as visualized. Reproductive: Unremarkable as visualized. Bones/joints: Unremarkable. No acute fracture. Soft tissues: Right-sided gynecomastia. Fat containing periumbilical hernia again seen with vascular foci consistent with recanalized umbilical vein. IMPRESSION: 1. Possible gallbladder disease. Recommend sonography. 2. Findings of concern for portal hypertension presumably related to underlying cirrhosis. Dictated and Authenticated by: Yady Flores MD. Ordering:RICO Ridley MD
[2022-09-24 16:41] LABS: Bilirubin Negative (Negative); Blood Negative (Negative); Clarity Clear (Clear); Glucose Negative (Negative); Ketones Negative (Negative); Leukocyte Esterase Negative (Negative); Nitrite Negative (Negative); Specific Gravity 1.015 (1.005-1.025); Urobilinogen 0.2 EU/dL (Up TO 0.2); pH 6.5 (5-8)
[2022-09-24] MEDS: Ondansetron O.D.T. 4 MG TABEF, 3 TABS/BTL PO (16:57)
== END 2022-09-24 17:25 | disposition home or self-care (01) ==
PROVIDERS: Nurse Practitioner Family; Emergency Provider Registered Nurse Emergency
DX: R55 Syncope and collapse (principal); R10.9 Unspecified abdominal pain; R56.9 Unspecified convulsions
CPT/HCPCS: 36415; 80053; 83690; 93005; 96361; 96374; 96375; 99284; 70450; 74177; 80320; 81003; 82140; 83735; 85025; 93010; J2270; J2405; J3490

== ENCOUNTER 2022-12-06 15:49 | Outpatient (CLI) | payer MEDICAID, SELFPAY ==
[2022-12-06 16:23] LABS: Abs Immature Grans 0.02 10^3/uL (0.0-0.06); Absolute Basophil Count 0.04 10^3/uL (0.0-0.2); Absolute Eosinophil Count 0.15 10^3/uL (0.0-0.7); Absolute Lymphocyte Count 1.54 10^3/uL (1.2-3.4); Absolute Monocyte Count 0.54 10^3/uL (0.1-0.8); Absolute Neutrophil Count 3.27 10^3/uL (1.2-6.7); Basophils % 0.7; Eosinophils % 2.7; HCT 38.4 % (40.0-50.0); HGB 13.1 g/dL (13.5-17.5); Immature Grans % 0.4; Lymphocytes % 27.7; MCH 34.1 pg (27.0-33.0); MCHC 34.1 % (32.0-36.0); MCV 100 fL (80-95); MPV 9.8 fL (8.0-11.0); Monocytes % 9.7; Neutrophils % 58.8; Platelet Count 151 10^3/uL (130-400); RBC 3.84 10^6/uL (4.36-5.78); RDW 12.8 % (11.8-14.1); RDW-SD 47.2 fL; WBC 5.56 10^3/uL (4.4-10.8)
[2022-12-06 16:34] LABS: INR 1.1 (0.9-1.1); Prothrombin Time 11.3 sec (9.3-11.0)
[2022-12-06 17:05] LABS: ALT 27 U/L (16-63); AST 24 U/L (15-37); Albumin 4.2 g/dL (3.4-5.0); Alkaline Phosphatase 112 U/L (46-116); BUN 16 mg/dL (7-18); Bilirubin, Total 1.1 mg/dL (0.2-1.0); CREATININE 1.3 mg/dL (0.70-1.30); Calcium 9.2 mg/dL (8.5-10.1); Chloride 102 mmol/L (98-107); Estimated GFR 70.34 (mL/min/1.73m2); Glucose 96 mg/dL (74-106); Potassium 4.2 mmol/L (3.5-5.1); Sodium 137 mmol/L (136-145); Total Protein 7.6 g/dL (6.4-8.2)
== END 2022-12-06 15:50 | disposition home or self-care (01) ==
LOC: LBO 15:51
PROVIDERS: Visit Provider Internal Medicine
DX: K70.31 Alcoholic cirrhosis of liver with ascites (principal)
CPT/HCPCS: 36415; 80053; 85025; 85610

== ENCOUNTER 2022-12-06 17:32 | Emergency (ER) | payer MEDICAID, SELFPAY ==
[2022-12-06 17:38] VITALS: BP 133/93; PULSE 88; RESP 16; TEMP 36.9; O2SAT 99
--- NOTE | 2022-12-06 18:20 | ED.GENADUL_ITS ---
Discharge Plan Disposition Patient Disposition: Home Condition: Improving Discharge Details Chief Complaint: Laceration Clinical Impression: Laceration of thumb Primary Care Provider: Sally De Leon ED Provider: Larry Palomo Home Meds and New Rx's Prescriptions: No Action furosemide [Lasix] 40 mg Tablet 60 mg DAILY spironolactone 25 mg Tablet 25 mg PO DAILY trazodone 100 mg Tablet 100 mg PO QHS pantoprazole 40 mg Tablet,Delayed Release (Dr/Ec) 40 mg PO DAILY oxycodone 5 mg Capsule 5 mg BID folic acid 1 mg Tablet 1 mg PO DAILY vitamin B6-vitamin E-magnesium Tablet 1 tab PO DAILY mecobalamin (vitamin B12) [B12 Active] 1,000 mcg Tablet,Chewable 500 mcg PO DAILY hydroxyzine pamoate 50 mg capsule 1 cap PO QID Label Comments: TAKE 1 CAPSULE BY MOUTH EVERY 4 HOURS NEEDED. NOT TO EXCEED 3/24 tramadol 50 mg tablet 1 tab PO HS Label Comments: TAKE 1 TABLET BY MOUTH EVERY 8 HOURS NEEDED FOR PAIN. MAXIMUM DAILY DOSE IS 150 MG gabapentin 800 mg Tablet 800 mg PO TID sertraline 25 mg tablet 3 tab PO DAILY Label Comments: TAKE 3 TABLETS BY MOUTH DAILY Discharge Instructions Instructions: Laceration (ED) Additional Instructions: Please keep wound clean and dry. Please return to the emergency department for reopening of the wound, worsening bleeding, poor healing or signs of infection. Medical Decision Making 41-year-old male presents after accidentally lacerating the tip of his right thumb with a kitchen mandolin, clean utensil, clean potatoes were being cut, patient's tetanus booster is up-to-date, holding pressure on arrival, 3.5 cm flap laceration, wound anesthetized with ring block of thumb, tourniquet applied for hemostasis, wound irrigated extensively with sterile normal saline, no foreign bodies appreciated, 5 x 4-0 Vicryl simple interrupted sutures, Steri- Strips and surgical glue also applied, patient feeling better, wound hemostatic, given home care instructions and return precautions. Discussed with patient at length the likelihood the distal aspect of flap may not heal properly in fact given thin nature of tissue in this area is likely to necrosis and the underlying wound will likely heal by secondary intent. Given strict return precautions for poor healing or signs of infection dehiscence or bleeding. Given 1 dose p.o. Percocet here in department. Instructed to use ibuprofen and acetaminophen at home. HPI General Date/Time Provider Initiated Documentation: 12/06/22 17:43 . HPI Narrative: 41-year-old male presents accidentally lacerating the tip of his right thumb on a kitchen mandolin while slicing potatoes, the mandolin blade was brand-new and clean, the potatoes were washed and cleaned. Patient had a tetanus vaccination 1 year. Pain and bleeding to tip of thumb. No other injuries Related Data Home Medications Medication Instructions Recorded Confirmed folic acid 1 mg tablet 1 mg PO DAILY 08/22/22 12/06/22 furosemide 40 mg tablet (Lasix) 60 mg DAILY 08/22/22 12/06/22 mecobalamin (vitamin B12) 1,000 500 mcg PO DAILY 08/22/22 12/06/22 mcg chewable tablet (B12 Active) oxycodone 5 mg capsule 5 mg BID 08/22/22 12/06/22 pantoprazole 40 mg tablet,delayed 40 mg PO DAILY 08/22/22 12/06/22 release spironolactone 25 mg tablet 25 mg PO DAILY 08/22/22 12/06/22 trazodone 100 mg tablet 100 mg PO QHS 08/22/22 12/06/22 vitamin B6-vitamin E-magnesium 1 tab PO DAILY 08/22/22 12/06/22 tablet gabapentin 800 mg tablet 800 mg PO TID 09/24/22 12/06/22 hydroxyzine pamoate 50 mg capsule 1 cap PO QID 09/24/22 12/06/22 sertraline 25 mg tablet 3 tab PO DAILY 09/24/22 12/06/22 tramadol 50 mg tablet 1 tab PO HS 09/24/22 12/06/22 Allergies Allergy/AdvReac Type Severity Reaction Status Date / Time No Known Allergies Allergy Unverified 12/06/22 17:42 General Stated Complaint: Laceration DERICK: 4 Review of Systems Narrative: Review of Systems Constitutional: negative Eyes: negative ENT: negative Cardiovascular: negative Respiratory: negative Gastrointestinal: negative : negative Musculoskeletal: negative Skin: Thumb laceration Neurologic: negative Psych: negative PFSH All Active Problems (Updated 12/06/22 @ 18:27 by Larry Palomo MD) Laceration of thumb (Acute) Anemia (Chronic) Bilateral lower extremity edema (Acute) Cirrhosis of liver (Chronic) Medical History Alcohol abuse Cirrhosis of liver GERD (gastroesophageal reflux disease) Pancreatitis Suicide attempt Tobacco abuse Surgical History S/P abdominal paracentesis S/P hernia repair Family History Mother Heart disease Stroke Diabetes Hypertension Maternal Grandfather Diabetes Hypertension Maternal Grandmother Hypertension Social History Smoking/Tobacco Use Status: Current every day Tobacco Type: cigarettes Smoking risk assessment performed?: Yes Alcohol Intake: current Alcohol Intake frequency: a few times a week Alcohol type: hard liquor Drug use: Daily Substance use type: marijuana Do you feel safe at home: Yes Do you feel safe in your relationship?: Yes Additional Social history: lives with mom and sister, sister in room. Exam Narrative Exam Narrative: Physical Examination General: alert, awake, cooperative, resting comfortably, no acute distress Skin: 3 cm flap laceration to radial side of right thumb Neuro: AAOx3, normal speech, moving all extremities Extremities: Motor function of thumb intact, sensation median radial and ulnar nerve distribution intact, warm well perfused extremity, good capillary refill Psych: Appropriate mood and affect Course Vital Signs Vital signs: Vital Signs Temperature 36.9 C 12/06/22 17:38 Pulse 88 12/06/22 17:38 Respiratory Rate 16 12/06/22 17:38 Blood Pressure 133/93 H 12/06/22 17:38 Pulse Oximetry 99 12/06/22 17:38 Temperature 36.9 C 12/06/22 17:38 Temperature Source Skin 12/06/22 17:38 Pulse 88 12/06/22 17:38 Respiratory Rate 16 12/06/22 17:38 Blood Pressure 133/93 H 12/06/22 17:38 Blood Pressure Position Sitting 12/06/22 17:38 Pulse Oximetry 99 12/06/22 17:38 Oxygen Delivery Method Room Air 12/06/22 17:38 Oxygen Flow Rate 0 12/06/22 17:38 Pain Level 9 12/06/22 17:38 Procedures Laceration Laceration 1: Site: hand Side (If applicable): right Size (cm): 3.5 Description: flap Depth: simple, single layer Local Anesthetic: Lidocaine 1% Amount of anesthesia used (mL): 4 Pre-repair: wound explored and irrigated extensively Skin layer closed with: vicryl Size (cm): 4-0 Number of sutures: 5 Technique: simple, interrupted
[2022-12-06] MEDS: oxyCODONE 5 mg/Acetaminophen 325 mg TAB 1 TAB (18:21)
[2022-12-06 18:37] VITALS: BP 119/81; PULSE 88; RESP 15; O2SAT 99
== END 2022-12-06 18:39 | disposition home or self-care (01) ==
PROVIDERS: Emergency Provider Emergency Medicine; PCP Internal Medicine
DX: S61.011A Laceration without foreign body of right thumb without damage to nail, initial encounter (principal); W26.0XXA Contact with knife, initial encounter
CPT/HCPCS: 12002

== ENCOUNTER 2022-12-08 19:22 | Emergency (ER) | payer MEDICAID, SELFPAY ==
[2022-12-08 19:27] VITALS: BP 120/75; PULSE 98; RESP 16; TEMP 36.9; O2SAT 98
--- NOTE | 2022-12-08 20:00 | DI.RAD_ITS ---
Exam(s) XR PORTABLE CHEST AP EXAM: XR PORTABLE CHEST AP CLINICAL HISTORY: epigastric pain TECHNIQUE: 2D digital imaging was performed of the chest. One image was obtained. An AP view was ob tained. COMPARISON: No exams were available for comparison FINDINGS: MEDIASTINUM: Normal. HEART: Normal. PULMONARY VASCULATURE: Normal. LUNGS: Clear. PLEURAL SPACE: No pleural effusion or pneumothorax. BONE:Within normal limits for the patient's age. OTHER FINDINGS:Normal. IMPRESSION: No acute pulmonary findings. DATA REPOSITORY: RADIATION DOSE DELIVERED:
--- NOTE | 2022-12-08 20:00 | RT.EKG_ITS ---
APPROVED REPORT Exam: Resting ECG Reason for Exam: epigastric pain Patient Location: E HR:89 bpm ECG Measurements Heart Rate 89 AXIS WA 157 P 46 QRSd 110 QRS 17 QT 376 T 38 QTc 457 Conclusion Sinus rhythm...normal P axis, V-rate 60- 99 Normal [place] Normal Electrocardiogram
[2022-12-08 20:13] LABS: Abs Immature Grans 0.02 10^3/uL (0.0-0.06); Absolute Basophil Count 0.06 10^3/uL (0.0-0.2); Absolute Eosinophil Count 0.23 10^3/uL (0.0-0.7); Absolute Lymphocyte Count 2.01 10^3/uL (1.2-3.4); Absolute Monocyte Count 0.68 10^3/uL (0.1-0.8); Absolute Neutrophil Count 3.19 10^3/uL (1.2-6.7); Eosinophils % 3.7; HGB 13.1 g/dL (13.5-17.5); Immature Grans % 0.3; Lymphocytes % 32.5; MCH 34.4 pg (27.0-33.0); MCHC 34.5 % (32.0-36.0); MCV 100 fL (80-95); MPV 10.1 fL (8.0-11.0); Neutrophils % 51.5; Platelet Count 165 10^3/uL (130-400); RBC 3.81 10^6/uL (4.36-5.78); RDW-SD 47.5 fL; WBC 6.19 10^3/uL (4.4-10.8)
[2022-12-08 20:24] LABS: INR 1.1 (0.9-1.1)
[2022-12-08 20:25] LABS: Magnesium 1.9 mg/dL (1.8-2.4)
[2022-12-08 20:29] LABS: ALT 29 U/L (16-63); AST 26 U/L (15-37); Albumin 4.2 g/dL (3.4-5.0); Alkaline Phosphatase 114 U/L (46-116); Anion Gap 8.6 mmol/L (3-11); BUN 15 mg/dL (7-18); Bilirubin, Total 0.7 mg/dL (0.2-1.0); CO2 25.4 mmol/L (21.0-32.0); CREATININE 1.8 mg/dL (0.70-1.30); Calcium 9.2 mg/dL (8.5-10.1); Chloride 101 mmol/L (98-107); Glucose 99 mg/dL (74-106); Lipase 76 U/L (73-393); Sodium 135 mmol/L (136-145); Total Protein 7.9 g/dL (6.4-8.2)
[2022-12-08 20:29] LABS: Bilirubin Negative (Negative); Blood Negative (Negative); Clarity Clear (Clear); Glucose Negative (Negative); Ketones Negative (Negative); Leukocyte Esterase Negative (Negative); Nitrite Negative (Negative); Specific Gravity 1.015 (1.005-1.025); Urobilinogen 0.2 EU/dL (Up TO 0.2); pH 5.5 (5-8)
[2022-12-08 20:30] LABS: Ammonia 37 umol/L (11-32)
[2022-12-08] MEDS: MORPHine 4 MG/ML SYR IVP (20:35)
[2022-12-08] MEDS: Lactated Ringers 500 ML IV (20:35)
--- NOTE | 2022-12-08 20:45 | DI.CT_ITS ---
Exam(s) CT ABDOMEN PELVIS W EXAM: CT ABDOMEN PELVIS W CLINICAL HISTORY: abdominal pain, hx of cirrhosis TECHNIQUE: Imaging Protocol: Axial computed tomography images with coronal and sagittal reformatted images were created and reviewed CONTRAST MATERIAL: Intravenous: Omnipaque 350 Contrast volume:100 mL Oral: No COMPARISON: CT CT ABDOMEN PELVIS W from 09/24/2022 FINDINGS: ABDOMEN: Lung Bases: There is mild dependent atelectasis. Liver: There is a nodular contour of the liver suggesting hepatic cirrhosis. No measurable mass. The re is a recanalized umbilical vein. There also appear to be dilated vessels at the gastroesophageal junction consistent with varices. Portal, Superior Mesenteric, and Splenic Veins: Unremarkable. Gallbladder and Biliary Tract: No radiodense calculus or dilation. Pancreas: Normal density, no abnormal calcifications or inflammatory process. Spleen: Mild splenomegaly. Adrenals: No masses seen. Kidneys: Normal size, contour and axis. No radiodense stones or obstructive uropathy. No masses seen. Abdominal Aorta: Abdominal portion non-dilated. Bowel: There are few diverticula seen in the sigmoid colon, but no evidence of acute diverticulitis. There is no evidence of bowel obstruction. No bowel wall thickening is present. Appendix is unrema rkable. Peritoneal Cavity: No ascites, collection or mesenteric inflammatory response. No free air. Lymph Nodes: Within normal limits. Bones: Within normal limits for the patient's age. Soft Tissues: There is a small fat and fluid containing right inguinal hernia. There is a fat contai kirsty paraumbilical hernia. PELVIS: Bladder: Symmetric distention, no gross wall thickening. Reproductive Organs: Unremarkable as visualized. Lymph Nodes: Within normal limits. Bones: Within normal limits for the patient's age. IMPRESSION: 1. No acute abdominal or pelvic process. 2. Of hepatic cirrhosis with portal hypertension. RADIATION DOSE DELIVERED: 1,001.96mGy.cm Total DLP DATA REPOSITORY: All CT scans at this facility are submitted to the National Radiology Data Registry (NRDR) Dose Index Registry (DIR) with the [employer] (A[employer]). RADIATION OPTIMIZATION: All CT scans at this facility use at least one of these dose optimization te chniques: automated exposure control; mA and/or kV adjustment per patient size (includes targeted exa ms where dose is matched to clinical indication); or iterative reconstruction.
[2022-12-08 20:49] LABS: COVID-19 PCR Negative (Negative); Influenza A PCR Negative (Negative); Influenza B PCR Negative (Negative); RSV PCR Negative (Negative)
[2022-12-08 20:52] LABS: Source Nasopharynx
[2022-12-08] MEDS: Normal Saline - Diluent 50 ML VIAL IJ (21:04)
[2022-12-08] MEDS: Omnipaque 350 MG/ML 100 ML BTL IJ (21:04)
[2022-12-08] MEDS: Normal Saline Flush 10 ML SYR IVP (21:04)
[2022-12-08] MEDS: Prochlorperazine 10 MG/2 ML VIAL 5 MG IVP (21:42)
[2022-12-08] MEDS: HYDROmorphone 2 MG/ML SYR 1 MG IVP (21:45)
[2022-12-08 21:55] VITALS: BP 110/62; PULSE 91; RESP 16; TEMP 37; O2SAT 94
--- NOTE | 2022-12-08 22:03 | DI.VRAD_ITS ---
PROCEDURE INFORMATION: Exam: XR Chest Exam date and time: 12/08/2022 7:58 PM Age: 41 years old Clinical indication: Other: Epigastric pain TECHNIQUE: Imaging protocol: Radiologic exam of the chest. Views: 1 view. COMPARISON: CT ABDOMEN PELVIS W 09/24/2022 4:17 PM FINDINGS: Lungs: Unremarkable. No consolidation. Pleural spaces: Unremarkable. No pleural effusion. No pneumothorax. Heart/Mediastinum: Unremarkable. No cardiomegaly. Bones/joints: Unremarkable. IMPRESSION: No acute findings. Dictated and Authenticated by: Jerad Oakley MD. Ordering:JERRICA Guevara MD
--- NOTE | 2022-12-08 22:19 | DI.VRAD_ITS ---
PROCEDURE INFORMATION: Exam: CT Abdomen And Pelvis With Contrast Exam date and time: 12/08/2022 9:03 PM Age: 41 years old Clinical indication: Other: Abdominal pain; Additional info: Abdominal pain, epigastric pain, HX of cirrhosis TECHNIQUE: Imaging protocol: Computed tomography of the abdomen and pelvis with contrast. Contrast material: OMNIPAQUE 350; Contrast volume: 100 ml; Contrast route: INTRAVENOUS (IV); COMPARISON: CT ABDOMEN PELVIS W 09/24/2022 4:17 PM FINDINGS: Lungs: Lung bases are clear. Pleural spaces: No pleural effusion. Heart: Normal heart size. No pericardial effusion. No coronary artery atherosclerotic calcium evident. Liver: Liver is slightly small with suggestion of nodularity of the surface consistent with cirrhosis. No focal hepatic lesions. Gallbladder and bile ducts: The gallbladder is normal in size and shape. No stones or inflammatory changes. Pancreas: The pancreas is normal in contour and attenuation. Spleen: Spleen is upper limits of normal at 13 cm in length. Adrenal glands: The adrenal glands are normal in size and contour bilaterally. Kidneys and ureters: The kidneys bilaterally are unremarkable. Normal attenutation. No hydronephrosis. No calculi. Stomach and bowel: Gastric morphology is unremarkable. No edema. No gastric outlet obstruction. Small hiatal hernia. No acute changes. Small bowel loops are normal in course and caliber. There is no mucosal edema or bowel wall thickening. No obstructive features. The colon contains formed fecal material. There is no bowel wall thickening. No inflammatory features. No obstruction. Appendix: A non inflamed appendix is identified. Series 4, images 69 through 60. Intraperitoneal space: Unremarkable. No free air. No significant fluid collection. Vasculature: Umbilical vein has recanalized consistent with portal hypertension. Portal vein is patent. Hepatic veins are unremarkable. Lymph nodes: Nonspecific lymph node in the region of the celiac axis measuring 16 x 10 mm. Series 7, image 160. Stable since 09/24/2022. Urinary bladder: Urinary bladder is unremarkable in appearance. No wall thickening. No intravesicular calculi. No intravesicular gas. Reproductive: Unremarkable as visualized. Bones/joints: Unremarkable. No acute fracture. Soft tissues: Small right inguinal hernia containing fat. There is minor fluid within the hernia. This is nonspecific. Similar features are noted 10/25/2022. There is also a fat containing umbilical hernia without acute features of strangulation. This measures approximately 4.9 cm in transverse diameter. IMPRESSION: 1. Cirrhotic liver features. 2. Portal hypertension is suggested with recanalized umbilical vein. 3. Borderline enlargement of spleen at 13 cm. 4. No acute abnormalities of the abdomen or pelvis. 5. Lung bases are clear. 6. Stable umbilical and right inguinal hernia changes. Dictated and Authenticated by: Jerad Oakley MD. Ordering:JERRICA Guevara MD
[2022-12-08 23:14] VITALS: BP 119/76; PULSE 86; TEMP 36.4; O2SAT 97
--- NOTE | 2022-12-09 12:32 | NUR.NOTE ---
1230 lab called to say that 1 out of the 4 blood culture bottles that were drawn last night came back graqm positive cocci in clusters (aerobic). Dr. Palomo made aware of results.
--- NOTE | 2022-12-09 13:16 | ED.FU.B_ITS ---
Date of service: 12/09/22 Time of Service: 13:17 Follow Up Plan: Patient's blood culture results 1 out of 4 aerobic samples positive for gram- positive cocci in clusters. Attempted to contact Mr. Guerrero at phone number made available to me [phone] without answer I have left a message on his phone. Awaiting callback. Will try again later this afternoon.
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
== END 2022-12-08 23:39 | disposition home or self-care (01) ==
PROVIDERS: Emergency Provider Physician Assistant; PCP Internal Medicine
DX: K74.60 Unspecified cirrhosis of liver (principal); F10.19 Alcohol abuse with unspecified alcohol-induced disorder; K40.20 Bilateral inguinal hernia, without obstruction or gangrene, not specified as recurrent; R10.31 Right lower quadrant pain; Z72.0 Tobacco use
CPT/HCPCS: 36415; 80053; 83690; 87040; 87077; 87637; 93005; 96374; 99284; 71045; 74177; 81003; 82140; 83735; 85025; 85610; 87186; 93010; J0780; J1170; J2270; J3490

== ENCOUNTER 2022-12-09 16:41 | Emergency (ER) | payer MEDICAID, SELFPAY ==
[2022-12-09 16:58] VITALS: BP 131/77; PULSE 87; RESP 18; TEMP 37; O2SAT 97
[2022-12-09 17:28] LABS: Abs Immature Grans 0.03 10^3/uL (0.0-0.06); Absolute Basophil Count 0.03 10^3/uL (0.0-0.2); Absolute Eosinophil Count 0.22 10^3/uL (0.0-0.7); Absolute Lymphocyte Count 1.21 10^3/uL (1.2-3.4); Absolute Monocyte Count 0.51 10^3/uL (0.1-0.8); Absolute Neutrophil Count 3.19 10^3/uL (1.2-6.7); Basophils % 0.6; Eosinophils % 4.2; HCT 38.4 % (40.0-50.0); HGB 13.1 g/dL (13.5-17.5); Immature Grans % 0.6; Lymphocytes % 23.3; MCH 34.2 pg (27.0-33.0); MCHC 34.1 % (32.0-36.0); MCV 100 fL (80-95); MPV 9.8 fL (8.0-11.0); Monocytes % 9.8; Neutrophils % 61.5; Platelet Count 146 10^3/uL (130-400); RBC 3.83 10^6/uL (4.36-5.78); RDW 12.7 % (11.8-14.1); RDW-SD 47.3 fL; WBC 5.19 10^3/uL (4.4-10.8)
--- NOTE | 2022-12-09 17:38 | ED.GENADUL_ITS ---
Discharge Plan Disposition Patient Disposition: Home Condition: Stable Discharge Details Chief Complaint: GenMedical Clinical Impression: Positive blood culture Primary Care Provider: Sally De Leon ED Provider: Larry Palomo Home Meds and New Rx's Prescriptions: No Action furosemide [Lasix] 40 mg Tablet 60 mg DAILY spironolactone 25 mg Tablet 25 mg PO DAILY trazodone 100 mg Tablet 100 mg PO QHS pantoprazole 40 mg Tablet,Delayed Release (Dr/Ec) 40 mg PO DAILY oxycodone 5 mg Capsule 5 mg BID folic acid 1 mg Tablet 1 mg PO DAILY vitamin B6-vitamin E-magnesium Tablet 1 tab PO DAILY mecobalamin (vitamin B12) [B12 Active] 1,000 mcg Tablet,Chewable 500 mcg PO DAILY hydroxyzine pamoate 50 mg capsule 1 cap PO QID Label Comments: TAKE 1 CAPSULE BY MOUTH EVERY 4 HOURS NEEDED. NOT TO EXCEED 3/24 tramadol 50 mg tablet 1 tab PO HS Label Comments: TAKE 1 TABLET BY MOUTH EVERY 8 HOURS NEEDED FOR PAIN. MAXIMUM DAILY DOSE IS 150 MG gabapentin 800 mg Tablet 800 mg PO TID sertraline 25 mg tablet 3 tab PO DAILY Label Comments: TAKE 3 TABLETS BY MOUTH DAILY promethazine 25 mg tablet 25 mg PO ONCE Qty: 12 0RF Rx Instructions: may repeat once in 12 hours Discharge Instructions Instructions: Bacteremia (ED) Additional Instructions: Please follow-up with your primary care physician. Please return the emergency department for any worsening symptoms. Will call with any abnormalities in your blood culture results. Medical Decision Making 41-year-old male recent thumb laceration, recent evaluation for abdominal pain presents with positive blood cultures, 1 out of 4 positive for gram-positive cocci in clusters. Patient is afebrile nontoxic no tachycardia no hypotension. No focal source of infection. Well-healing thumb laceration without erythema induration or purulence. High clinical suspicion for bacterial contaminant during initial blood culture draw. However must also consider seeding from recent laceration or gastrointestinal source. However given Gram stain this is likely staphylococcal in nature. Will obtain basic labs including CBC, and procalcitonin. If normal white count normal Pro-Claudy patient remains hemodynamically stable will likely discharge home after 1 dose of empiric parenteral antibiotics with return precautions given for worsening symptoms and will be called back for any further positive cultures or species delineation. 18: 35 resting comfortably no acute distress nontoxic. Hemodynamically stable. No white count, normal procalcitonin. Given dose of vancomycin to cover gram- positive cocci which would include MSSA MRSA and strep. Given strict return precautions for any worsening symptoms. Will be called back if further blood cultures become positive HPI General Date/Time Provider Initiated Documentation: 12/09/22 16:54 . HPI Narrative: 41-year-old male recent laceration to right thumb, also recent evaluation for abdominal pain, blood cultures positive 1 out of 4 for gram-positive cocci in clusters. Patient has had some hot and cold symptomatology today however no fever no cough no shortness of breath no nausea or vomiting, no other systemic signs of illness. Was called back for evaluation of positive blood cultures. Related Data Home Medications Medication Instructions Recorded Confirmed folic acid 1 mg tablet 1 mg PO DAILY 08/22/22 12/09/22 furosemide 40 mg tablet (Lasix) 60 mg DAILY 08/22/22 12/09/22 mecobalamin (vitamin B12) 1,000 500 mcg PO DAILY 08/22/22 12/09/22 mcg chewable tablet (B12 Active) oxycodone 5 mg capsule 5 mg BID 08/22/22 12/09/22 pantoprazole 40 mg tablet,delayed 40 mg PO DAILY 08/22/22 12/09/22 release spironolactone 25 mg tablet 25 mg PO DAILY 08/22/22 12/09/22 trazodone 100 mg tablet 100 mg PO QHS 08/22/22 12/09/22 vitamin B6-vitamin E-magnesium 1 tab PO DAILY 08/22/22 12/09/22 tablet gabapentin 800 mg tablet 800 mg PO TID 09/24/22 12/09/22 hydroxyzine pamoate 50 mg capsule 1 cap PO QID 09/24/22 12/09/22 sertraline 25 mg tablet 3 tab PO DAILY 09/24/22 12/09/22 tramadol 50 mg tablet 1 tab PO HS 09/24/22 12/09/22 promethazine 25 mg tablet 25 mg PO ONCE #12 tabs 12/08/22 12/09/22 Previous Rx's Medication Instructions Recorded promethazine 25 mg tablet 25 mg PO ONCE #12 tabs 12/08/22 Allergies Allergy/AdvReac Type Severity Reaction Status Date / Time No Known Allergies Allergy Unverified 12/09/22 17:02 General Stated Complaint: GenMedical DERICK: 2 Review of Systems Narrative: Review of Systems Constitutional: negative Eyes: negative ENT: negative Cardiovascular: negative Respiratory: negative Gastrointestinal: negative : negative Musculoskeletal: negative Skin: negative Neurologic: negative Psych: negative PFSH All Active Problems (Updated 12/09/22 @ 18:38 by Larry Palomo MD) Laceration of thumb (Acute) Abdominal pain (Acute) Inguinal hernia (Acute) Positive blood culture (Acute) Anemia (Chronic) Bilateral lower extremity edema (Acute) Cirrhosis of liver (Chronic) Medical History Alcohol abuse Cirrhosis of liver GERD (gastroesophageal reflux disease) Pancreatitis Suicide attempt Tobacco abuse Surgical History S/P abdominal paracentesis S/P hernia repair Family History Mother Heart disease Stroke Diabetes Hypertension Maternal Grandfather Diabetes Hypertension Maternal Grandmother Hypertension Social History Smoking/Tobacco Use Status: Current every day Tobacco Type: cigarettes Smoking risk assessment performed?: Yes Alcohol Intake: current Alcohol Intake frequency: 0-2 drinks per day Alcohol type: hard liquor Drug use: Daily Substance use type: marijuana Do you feel safe at home: Yes Do you feel safe in your relationship?: Yes Additional Social history: lives with mom and sister, sister in room. Exam Narrative Exam Narrative: Physical Examination General: alert, awake, cooperative, resting comfortably, no acute distress HEENT: normocephalic, atraumatic; PERRL, EOM intact, conjunctiva normal; no nasal discharge; moist mucous membranes, oral and pharyngeal mucosa normal, tolerating secretions Neck: supple, trachea midline; full ROM Chest: normal to inspection Respiratory: normal respiratory effort, speaking in full sentences, clear to auscultation, no wheezing, rales or rhonchi Cardiac: regular rate, regular rhythm, S1S2 intact, no murmurs rubs or gallops GI: abdomen soft, non-tender, non-distended; no palpable mass or hepatosplenomegaly Skin: no lesions, rashes or trauma appreciated Neuro: AAOx3, normal speech, moving all extremities Psych: Appropriate mood and affect Course Vital Signs Vital signs: Vital Signs Temperature 37.0 C 12/09/22 16:58 Pulse 87 12/09/22 16:58 Respiratory Rate 18 12/09/22 16:58 Blood Pressure 131/77 12/09/22 16:58 Pulse Oximetry 97 12/09/22 16:58 Temperature 37.0 C 12/09/22 16:58 Pulse 87 12/09/22 16:58 Respiratory Rate 18 12/09/22 16:58 Respiratory Effort 12/09/22 17:02 Blood Pressure 131/77 12/09/22 16:58 Blood Pressure Position Sitting 12/09/22 16:58 Pulse Oximetry 97 12/09/22 16:58 Oxygen Delivery Method Room Air 12/09/22 16:58 Oxygen Flow Rate 0 12/09/22 16:58 Pain Level 10 12/09/22 16:58 Lab/Test Results Lab/Test Results: 12/09/22 16:54 Blood Blood Culture - Pending 12/09/22 16:54 Blood Blood Culture - Pending Laboratory Tests Range/Units 12/09/22 17:25 WBC (4.4-10.8) 10^3/uL 5.19 RBC (4.36-5.78) 10^6/uL 3.83 L Hgb (13.5-17.5) g/dL 13.1 L Hct (40.0-50.0) % 38.4 L MCV (80-95) fL 100 H MCH (27.0-33.0) pg 34.2 H MCHC (32.0-36.0) % 34.1 RDW (11.8-14.1) % 12.7 Plt Count (130-400) 10^3/uL 146 MPV (8.0-11.0) fL 9.8 Immature Gran % 0.6 Neutrophils % 61.5 Lymphocytes % 23.3 Monocytes % 9.8 Eosinophils % 4.2 Basophils % 0.6 Nucleated RBC % (0.0-0.3) % 0.0 Absolute Neutrophils (1.2-6.7) 10^3/uL 3.19 Absolute Lymphocytes (1.2-3.4) 10^3/uL 1.21 Absolute Monocytes (0.1-0.8) 10^3/uL 0.51 Absolute Eosinophils (0.0-0.7) 10^3/uL 0.22 Absolute Basophils (0.0-0.2) 10^3/uL 0.03
[2022-12-09 17:44] LABS: ALT 28 U/L (16-63); AST 24 U/L (15-37); Albumin 4.2 g/dL (3.4-5.0); Alkaline Phosphatase 109 U/L (46-116); Anion Gap 8.2 mmol/L (3-11); BUN 17 mg/dL (7-18); Bilirubin, Total 1.3 mg/dL (0.2-1.0); CO2 26.8 mmol/L (21.0-32.0); CREATININE 1.3 mg/dL (0.70-1.30); Calcium 9.3 mg/dL (8.5-10.1); Chloride 101 mmol/L (98-107); Estimated GFR 70.34 (mL/min/1.73m2); Glucose 87 mg/dL (74-106); Potassium 3.9 mmol/L (3.5-5.1); Sodium 136 mmol/L (136-145); Total Protein 7.8 g/dL (6.4-8.2)
[2022-12-09 18:01] LABS: Procalcitonin < 0.1 ng/mL
[2022-12-09] MEDS: VANCOMYCIN 2,000 MG in Normal Saline 500 ML 250 MG IVPB (18:27)
== END 2022-12-09 20:30 | disposition home or self-care (01) ==
PROVIDERS: Emergency Provider Emergency Medicine; PCP Internal Medicine
DX: R78.81 Bacteremia (principal); S61.011D Laceration without foreign body of right thumb without damage to nail, subsequent encounter; X58.XXXD Exposure to other specified factors, subsequent encounter
CPT/HCPCS: 80053; 84145; 87040; 96365; 96366; 99284; 85025

== ENCOUNTER 2022-12-21 01:45 | Outpatient (CLI) | payer MEDICAID, SELFPAY ==
--- NOTE | 2022-12-21 | DI.US_ITS ---
Exam(s) US ABDOMEN LIMITED EXAM: US ABDOMEN LIMITED CLINICAL HISTORY: ALCOHOLIC CIRRHOSIS, K70.31, ALCOHOL USE DISORDER, F10.20 TECHNIQUE: Ultrasound abdomen performed using standard protocol. COMPARISON: CT CT ABDOMEN PELVIS W from 12/08/2022 FINDINGS: There is no ascites evident. LIVER: Liver appears somewhat cirrhotic. There are no discrete focal hepatic lesions identified. A recanalized umbilical vein is noted indicating element of portal venous hypertension. GALLBLADDER/BILIARY: There are no gallstones. Gallbladder wall thickness is upper normal. There is no gallbladder wall stripe sign nor pericholecystic fluid. The common hepatic duct isnot dilated, measuring 3-4mm at the level of samuel hepatis. PANCREAS: There is no evidence of pancreatic mass nor dilatation of the pancreatic duct. RIGHT KIDNEY:No evidence of solid mass, calculus, nor hydronephrosis. No cortical cysts evident. ABDOMINAL AORTA AND IVC: Visualized portions exhibit normal caliber. IMPRESSION: 1. No evidence of cholelithiasis nor dilatation of the biliary tree. 2. Cirrhotic appearing liver and recanalized umbilical vein noted indicating element of portal venou s hypertension. 3. There is no ascites. DATA REPOSITORY:
== END 2022-12-21 02:05 ==
LOC: DI 01:45
PROVIDERS: PCP Internal Medicine; Visit Provider Internal Medicine
DX: K70.31 Alcoholic cirrhosis of liver with ascites (principal); F10.20 Alcohol dependence, uncomplicated
CPT/HCPCS: 76705

== ENCOUNTER 2023-02-01 10:02 | Emergency (ER) | payer MEDICARE, MEDICAID, SELFPAY ==
[2023-02-01] VITALS (13 sets, daily range): BP systolic 148–152; BP diastolic 75–90; PULSE 71–90; RESP 13–22; TEMP 36.8; O2SAT 93–98
--- NOTE | 2023-02-01 10:17 | ED.GENADUL_ITS ---
Discharge Plan Disposition Patient Disposition: Home Condition: Stable Discharge Details Clinical Impression: Nausea and vomiting Primary Care Provider: Sally De Leon ED Provider: Kings Shearer Home Meds and New Rx's Prescriptions: New ondansetron 4 mg tablet,disintegrating 4 mg PO Q8H PRN (Reason: nausea and vomiting) Qty: 30 0RF Continued furosemide [Lasix] 40 mg Tablet 60 mg DAILY spironolactone 25 mg Tablet 25 mg PO DAILY trazodone 100 mg Tablet 100 mg PO QHS pantoprazole 40 mg Tablet,Delayed Release (Dr/Ec) 40 mg PO DAILY oxycodone 5 mg Capsule 5 mg BID Patient Comments: No longer takes 02/01/2023 CT folic acid 1 mg Tablet 1 mg PO DAILY vitamin B6-vitamin E-magnesium Tablet 1 tab PO DAILY mecobalamin (vitamin B12) [B12 Active] 1,000 mcg Tablet,Chewable 500 mcg PO DAILY Patient Comments: Uses the capsules now 02/01/2023 CT hydroxyzine pamoate 50 mg capsule 1 cap PO QID Patient Comments: TAKE 1 CAPSULE BY MOUTH EVERY 4 HOURS NEEDED. NOT TO EXCEED 02/16 tramadol 50 mg tablet 1 tab PO HS Patient Comments: TAKE 1 TABLET BY MOUTH EVERY 8 HOURS NEEDED FOR PAIN. MAXIMUM DAILY DOSE IS 150 MG gabapentin 800 mg Tablet 800 mg PO TID sertraline 25 mg tablet 3 tab PO DAILY Patient Comments: TAKE 3 TABLETS BY MOUTH DAILY promethazine 25 mg tablet 25 mg PO ONCE Qty: 12 0RF Rx Instructions: may repeat once in 12 hours Discharge Instructions Instructions: Acute Nausea and Vomiting (ED), Hypomagnesemia (ED) Additional Instructions: follow up with your primary care provider within 1 week especially if symptoms continue if you feel more ill, have severe pain or persistent vomiting return to the emergency department Medical Decision Making 42 yo male with hx of alcohol induced cirrhosis, drinnks 3-4 shots of liquor daily last being last evening, daily marijuana use, who comes in with n/v since yesterday. HE denies fevers, chest pain, dyspnea, and abdominal pain. He has not tried any otc therapies. HE arrives hemodynamically stable speaking clearly intermittently dry heaving during exam. He has clear lungs, no murmurs, no crepitus of the chest wall, soft nontender abdomen on exam. Suspect alcohol related n/v or cannabinonid hyperemesis syndrome, no abdominal tenderness or pain so doubt surgical pathology such as sbo. Will treat with antiemetics, iv fluids and check cbc, cmp and reassess. pt feels significantly better requesting d/c, labs show no significant acute abnormalities other than mag of 1.4. He still has no abdominal tenderness and is tolerating po so do not feel imaging indicated. he did meet with pyridine recovery operator for his alcohol use and will f/u with them. HE was advised to f/u with pcp, return precautions given Differential Diagnosis Differential Diagnosis: alcohol withdrawal, cannabinoid hyperemesis, Medical Records Medical records reviewed: Yes I reviewed the patient's medical records. Lab Data Lab results reviewed: Yes I reviewed the patient's lab results. HPI General Mode of arrival: ambulatory . Date/Time Provider Initiated Documentation: 02/01/23 10:03 . Limitations to Documentation: no limitations . Information obtained by: patient . History of Present Illness 42 year old M presents to the emergency department with the chief complaint of n/v, described as moderate, Patient started experiencing this day(s) (1) and it has been constant. No relieving factors improve symptom(s), No exacerbating factors reported . Patient notes denies chest pain. Patient did receive the following treatments prior to arrival, none Related Data Home Medications Medication Instructions Recorded Confirmed folic acid 1 mg tablet 1 mg PO DAILY 08/22/22 02/01/23 furosemide 40 mg tablet (Lasix) 60 mg DAILY 08/22/22 02/01/23 mecobalamin (vitamin B12) 1,000 500 mcg PO DAILY 08/22/22 12/09/22 mcg chewable tablet (B12 Active) oxycodone 5 mg capsule 5 mg BID 08/22/22 12/09/22 pantoprazole 40 mg tablet,delayed 40 mg PO DAILY 08/22/22 02/01/23 release spironolactone 25 mg tablet 25 mg PO DAILY 08/22/22 02/01/23 trazodone 100 mg tablet 100 mg PO QHS 08/22/22 02/01/23 vitamin B6-vitamin E-magnesium 1 tab PO DAILY 08/22/22 02/01/23 tablet gabapentin 800 mg tablet 800 mg PO TID 09/24/22 02/01/23 hydroxyzine pamoate 50 mg capsule 1 cap PO QID 09/24/22 02/01/23 sertraline 25 mg tablet 3 tab PO DAILY 09/24/22 02/01/23 tramadol 50 mg tablet 1 tab PO HS 09/24/22 02/01/23 promethazine 25 mg tablet 25 mg PO ONCE #12 tabs 12/08/22 02/01/23 ondansetron 4 mg disintegrating 4 mg PO Q8H PRN nausea and 02/01/23 tablet vomiting #30 tabs Previous Rx's Medication Instructions Recorded promethazine 25 mg tablet 25 mg PO ONCE #12 tabs 12/08/22 ondansetron 4 mg disintegrating 4 mg PO Q8H PRN nausea and 02/01/23 tablet vomiting #30 tabs Allergies Allergy/AdvReac Type Severity Reaction Status Date / Time No Known Allergies Allergy Unverified 02/01/23 10:11 General Stated Complaint: Nausea/Vomit/Diar DERICK: 3 Review of Systems All systems reviewed & are unremarkable except as noted in HPI and below Constitutional Constitutional: Denies chills, Denies fever(s) and Denies weakness Cardiovascular Cardiovascular: Denies chest pain and Denies dyspnea Respiratory Respiratory: Denies cough and Denies dyspnea Gastrointestinal Gastrointestinal: Denies vomiting Genitourinary Genitourinary: Denies dysuria Musculoskeletal Musculoskeletal: Denies joint swelling Integumentary/Breasts Skin/Breast: Denies rash Neurologic Neurologic: Denies weakness PFSH All Active Problems (Updated 02/01/23 @ 12:21 by Kings Shearer MD) Nausea and vomiting (Acute) Anemia (Chronic) Bilateral lower extremity edema (Acute) Cirrhosis of liver (Chronic) Medical History Alcohol abuse Cirrhosis of liver GERD (gastroesophageal reflux disease) Pancreatitis Suicide attempt Tobacco abuse Surgical History S/P abdominal paracentesis S/P hernia repair Family History Mother Heart disease Stroke Diabetes Hypertension Maternal Grandfather Diabetes Hypertension Maternal Grandmother Hypertension Social History Smoking/Tobacco Use Status: Current every day Tobacco Type: cigarettes Smoking risk assessment performed?: Yes Alcohol Intake: current Alcohol Intake frequency: 0-2 drinks per day Alcohol type: hard liquor Drug use: Daily Substance use type: marijuana Do you feel safe at home: Yes Do you feel safe in your relationship?: Yes Additional Social history: lives with mom and sister, sister in room. Exam Const Orientation: alert HENMI Head: normal to inspection Ears: external ears normal General nose exam: external nose normal Mouth: moist mucous membranes Eyes General: appearance normal, both eyes and all related structures Neck Neck: normal visual inspection Chest Chest: normal inspection of the chest, normal palpation of entire chest wall and no tenderness Resp Effort & Inspection: normal respiratory effort and able to speak in complete sentences Auscultation: clear to auscultation bilaterally Cardio Jugular venous pressure: no JVD Rate: regular rate Heart Sounds: no murmurs GI Palpation: soft and nontender Skin General skin exam: no rashes or lesions noted Neuro General: patient alert and patient oriented x3 Extrem General: normal to inspection Psych Mental Status: mental status grossly normal Course Vital Signs Vital signs: Vital Signs Temperature 36.8 C 02/01/23 10:06 Pulse 85 02/01/23 10:06 Respiratory Rate 16 02/01/23 10:06 Blood Pressure 152/90 H 02/01/23 10:06 Pulse Oximetry 96 02/01/23 10:06 Temperature 36.8 C 02/01/23 10:06 Temperature Source Temporal Artery Scan 02/01/23 10:06 Pulse 85 02/01/23 10:06 Respiratory Rate 16 02/01/23 10:06 Respiratory Effort Normal 02/01/23 10:09 Blood Pressure 152/90 H 02/01/23 10:06 Blood Pressure Position Sitting 02/01/23 10:06 Pulse Oximetry 96 02/01/23 10:06 Oxygen Delivery Method Room Air 02/01/23 10:06 Oxygen Flow Rate 0 02/01/23 10:06 Pain Level 8 02/01/23 10:06 PAWSS Have you Been Recently Intoxicated or Drunk Within the Last 30 days?: Yes Have you Ever Experienced Previous Episodes of Alcohol Withdrawal?: No Have you ever Experienced Withdrawal Seizures?: Yes Have you ever Experienced Delirium Tremens(DT)s?: Yes Have you ever undergone Alcohol Rehabilitation Treatment (i.e, inpt ot outpatient treatment programs)?: Yes Have you ever Experienced Blackouts?: Yes Have you ever Combined Alcohol with other Downers within the last 90 days?: No Have you ever Combined Alcohol with any other Substance of Abuse during the last 90 days?: No Result: 5
[2023-02-01] MEDS: Normal Saline 1,000 ML 1000 ML IV (10:28)
[2023-02-01] MEDS: Droperidol 5 MG/2 ML VIAL 2.5 MG IVP (10:38)
[2023-02-01 10:42] LABS: Abs Immature Grans 0.03 10^3/uL (0.0-0.06); Absolute Basophil Count 0.02 10^3/uL (0.0-0.2); Absolute Eosinophil Count 0.04 10^3/uL (0.0-0.7); Absolute Lymphocyte Count 0.97 10^3/uL (1.2-3.4); Absolute Monocyte Count 0.39 10^3/uL (0.1-0.8); Absolute Neutrophil Count 5.46 10^3/uL (1.2-6.7); Basophils % 0.3; Eosinophils % 0.6; HCT 39.7 % (40.0-50.0); HGB 13.9 g/dL (13.5-17.5); Immature Grans % 0.4; MCH 34.2 pg (27.0-33.0); MCV 98 fL (80-95); MPV 9.8 fL (8.0-11.0); Monocytes % 5.6; Neutrophils % 79.1; Platelet Count 186 10^3/uL (130-400); RBC 4.07 10^6/uL (4.36-5.78); RDW 11.9 % (11.8-14.1); WBC 6.91 10^3/uL (4.4-10.8)
[2023-02-01 10:55] LABS: INR 1.1 (0.9-1.1); PTT Activated 37.3 sec (21.5-31.9); Prothrombin Time 10.8 sec (9.3-11.0)
[2023-02-01 11:11] LABS: ALT 43 U/L (16-63); AST 47 U/L (15-37); Albumin 4.3 g/dL (3.4-5.0); Alkaline Phosphatase 155 U/L (46-116); Anion Gap 15.2 mmol/L (3-11); BUN 13 mg/dL (7-18); Bilirubin, Direct 0.5 mg/dL (0.0-0.2); CO2 21.8 mmol/L (21.0-32.0); CREATININE 1.1 mg/dL (0.70-1.30); Calcium 9.5 mg/dL (8.5-10.1); Chloride 103 mmol/L (98-107); Estimated GFR 85.42 (mL/min/1.73m2); Glucose 111 mg/dL (74-106); Magnesium 1.4 mg/dL (1.8-2.4); Potassium 3.7 mmol/L (3.5-5.1); Sodium 140 mmol/L (136-145); TSH (W/Ref FT4) 1.16 uIU/mL (0.36-3.74)
[2023-02-01 11:14] LABS: Procalcitonin 0.1 ng/mL
[2023-02-01 11:21] LABS: ETHANOL BLOOD < 3.0 mg/dL (<10)
[2023-02-01 11:34] LABS: Bilirubin Small (Negative); Blood Negative (Negative); Clarity Clear (Clear); Glucose Negative (Negative); Ketones 40 mg/dL (Negative); Leukocyte Esterase Negative (Negative); Nitrite Negative (Negative); Specific Gravity 1.015 (1.005-1.025); pH 8.5 (5-8)
[2023-02-01 11:40] LABS: Bacteria Negative HPF (Negative); C & S Indicated? No; Casts 0-2 Hyaline LPF (Negative); Crystals Negative HPF (Negative); Epithelial Cells Rare HPF (Negative); Mucus Trace (Negative); RBC Negative HPF (0-2); WBC Negative HPF (0-5)
[2023-02-01 11:50] LABS: *AMPHETAMINES SCREEN URINE Negative (Negative); *BARBITURATES SCREEN URINE Negative (Negative); *BENZODIAZEPINES SCREEN URINE Negative (Negative); Cannabinoids THC Positive (Negative); Cocaine Screen,Urine Negative (Negative); METHADONE URINE SCREEN Negative (Negative); OPIATES URINE SCREEN Negative (Negative)
[2023-02-01 11:51] LABS: Tricyclic Antidepressants Negative (Negative)
[2023-02-01 12:18] LABS: COVID-19 PCR Negative (Negative); Influenza A PCR Negative (Negative); Influenza B PCR Negative (Negative); RSV PCR Negative (Negative)
[2023-02-01 12:20] LABS: Source Nasopharynx
== END 2023-02-01 12:34 | disposition home or self-care (01) ==
PROVIDERS: Emergency Provider Emergency Medicine; PCP Internal Medicine
DX: R11.2 Nausea with vomiting, unspecified (principal); F12.90 Cannabis use, unspecified, uncomplicated; Z20.822 Contact with and (suspected) exposure to COVID-19; Z79.899 Other long term (current) drug therapy; E83.42 Hypomagnesemia; R60.0 Localized edema
CPT/HCPCS: 80053; 80307; 84145; 87637; 96361; 96374; 99284; 80320; 81003; 81015; 82248; 83735; 84443; 85025; 85610; 85730; J1790

== ENCOUNTER 2023-02-26 13:11 | Outpatient (CLI) | payer MEDICARE, MEDICAID, SELFPAY ==
[2023-02-26 12:34] LABS: Abs Immature Grans 0.01 10^3/uL (0.0-0.06); Absolute Basophil Count 0.04 10^3/uL (0.0-0.2); Absolute Eosinophil Count 0.19 10^3/uL (0.0-0.7); Absolute Lymphocyte Count 1.33 10^3/uL (1.2-3.4); Absolute Monocyte Count 0.46 10^3/uL (0.1-0.8); Absolute Neutrophil Count 2.14 10^3/uL (1.2-6.7); Eosinophils % 4.6; HCT 40.5 % (40.0-50.0); HGB 14.1 g/dL (13.5-17.5); Immature Grans % 0.2; Lymphocytes % 31.9; MCH 34.6 pg (27.0-33.0); MCHC 34.8 % (32.0-36.0); MCV 100 fL (80-95); MPV 10.1 fL (8.0-11.0); Neutrophils % 51.3; Platelet Count 141 10^3/uL (130-400); RBC 4.07 10^6/uL (4.36-5.78); RDW 11.7 % (11.8-14.1); RDW-SD 42.9 fL; WBC 4.17 10^3/uL (4.4-10.8)
[2023-02-26 12:46] LABS: INR 1.1 (0.9-1.1); Prothrombin Time 11.1 sec (9.3-11.0)
[2023-02-26 13:25] LABS: ALT 43 U/L (16-63); AST 23 U/L (15-37); Alkaline Phosphatase 116 U/L (46-116); Anion Gap 8.6 mmol/L (3-11); BUN 14 mg/dL (7-18); Bilirubin, Total 0.6 mg/dL (0.2-1.0); CO2 28.4 mmol/L (21.0-32.0); CREATININE 1.6 mg/dL (0.70-1.30); Chloride 101 mmol/L (98-107); Estimated GFR 54.49 (mL/min/1.73m2); Glucose 97 mg/dL (74-106); Potassium 3.4 mmol/L (3.5-5.1); Sodium 138 mmol/L (136-145); Total Protein 7.5 g/dL (6.4-8.2)
[2023-02-27 10:06] LABS: Hepatitis C Ab w Rflx HCV PCR Negative (Negative)
== END 2023-02-26 13:12 | disposition home or self-care (01) ==
PROVIDERS: PCP Internal Medicine; Visit Provider Internal Medicine
DX: K70.31 Alcoholic cirrhosis of liver with ascites (principal); Z11.59 Encounter for screening for other viral diseases
CPT/HCPCS: 36415; 80053; 86803; 85025; 85610

== ENCOUNTER 2023-03-19 01:05 | Outpatient (CLI) | payer MEDICARE, MEDICAID, SELFPAY ==
--- NOTE | 2023-03-19 | DI.US_ITS ---
Exam(s) US ABDOMEN LIMITED EXAM: US ABDOMEN LIMITED CLINICAL HISTORY: ALCOHOLIC LIVER DISEASE K70.9 ALCOHOL USE SEVERE F10.20 TECHNIQUE: Ultrasound abdomen performed using standard protocol. COMPARISON: CT CT ABDOMEN PELVIS W from 12/08/2022 US US ABDOMEN LIMITED from 12/21/2022 FINDINGS: PANCREAS: Normal where visualized. LIVER: There is a nodular contour to the liver with an enlarged left lobe. No hepatic masses present . The liver has a coarsened echotexture. Hepatopedal flow in the Portal Vein. The liver measures in 17.4 cm length. GALLBLADDER: No evidence of cholelithiasis. No evidence of wall thickening. No pericholecystic fluid identified. BILIARY SYSTEM: Common bile duct measures < 7 mm. No intrahepatic biliary ductal dilation. HARRIS'S SIGN: Negative. RIGHT KIDNEY: Kidney is normal in size. No evidence of renal calculi. No evidence of hydronephrosis. No renal mass or cyst identified. ASCITES: None seen. IMPRESSION: Findings suggestive of hepatic cirrhosis. No evidence of abdominal ascites. DATA REPOSITORY:
== END 2023-03-19 01:25 ==
LOC: DI 01:05
PROVIDERS: PCP Internal Medicine; Visit Provider Internal Medicine
DX: K70.9 Alcoholic liver disease, unspecified (principal); F10.20 Alcohol dependence, uncomplicated
CPT/HCPCS: 76705

== ENCOUNTER 2023-03-27 19:45 | Emergency (ER) | payer MEDICARE, MEDICAID, SELFPAY ==
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
[2023-03-27 19:49] VITALS: BP 140/86; PULSE 105; RESP 18; O2SAT 98
[2023-03-27 20:00] VITALS: BP 108/88; PULSE 105; O2SAT 95
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
[2023-03-27 20:08] LABS: Abs Immature Grans 0.01 10^3/uL (0.0-0.06); Absolute Basophil Count 0.07 10^3/uL (0.0-0.2); Absolute Eosinophil Count 0.11 10^3/uL (0.0-0.7); Absolute Lymphocyte Count 3.12 10^3/uL (1.2-3.4); Absolute Monocyte Count 0.45 10^3/uL (0.1-0.8); Absolute Neutrophil Count 2.14 10^3/uL (1.2-6.7); Basophils % 1.2; Eosinophils % 1.9; HCT 42.7 % (40.0-50.0); HGB 14.8 g/dL (13.5-17.5); Immature Grans % 0.2; Lymphocytes % 52.9; MCH 34.4 pg (27.0-33.0); MCHC 34.7 % (32.0-36.0); MCV 99 fL (80-95); MPV 9.5 fL (8.0-11.0); Monocytes % 7.6; Neutrophils % 36.2; Platelet Count 189 10^3/uL (130-400); RDW 12.1 % (11.8-14.1); RDW-SD 44.5 fL
[2023-03-27] MEDS: ACETAMINOPHEN 1,000 MG/100 ML BTL 400 MG IVPB (20:16)
[2023-03-27 20:23] LABS: PTT Activated 35.4 sec (21.5-31.9); Prothrombin Time 10.4 sec (9.3-11.0)
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
[2023-03-27 20:24] LABS: ALT 32 U/L (16-63); AST 23 U/L (15-37); Albumin 4.2 g/dL (3.4-5.0); Alkaline Phosphatase 122 U/L (46-116); Anion Gap 9.4 mmol/L (3-11); BUN 15 mg/dL (7-18); Bilirubin, Total 0.4 mg/dL (0.2-1.0); CO2 27.6 mmol/L (21.0-32.0); CREATININE 1.7 mg/dL (0.70-1.30); Chloride 107 mmol/L (98-107); Estimated GFR 50.66 (mL/min/1.73m2); Glucose 116 mg/dL (74-106); Potassium 3.5 mmol/L (3.5-5.1); Sodium 144 mmol/L (136-145); Total Protein 8.1 g/dL (6.4-8.2)
[2023-03-27 20:27] LABS: ETHANOL BLOOD 346.5 mg/dL (<10)
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
[2023-03-27 21:09] VITALS: BP 123/78; PULSE 91; PULSE 94; RESP 14; O2SAT 95
[2023-03-27 21:18] LABS: Bilirubin Negative (Negative); Blood Negative (Negative); Clarity Clear (Clear); Glucose Negative (Negative); Ketones Negative (Negative); Leukocyte Esterase Negative (Negative); Nitrite Negative (Negative); Urobilinogen 0.2 mg/dL (Up to 0.2)
[2023-03-27 21:47] LABS: *AMPHETAMINES SCREEN URINE Negative (Negative); *BARBITURATES SCREEN URINE Negative (Negative); *BENZODIAZEPINES SCREEN URINE Negative (Negative); Cannabinoids THC Positive (Negative); Cocaine Screen,Urine Negative (Negative); METHADONE URINE SCREEN Negative (Negative); OPIATES URINE SCREEN Negative (Negative); Tricyclic Antidepressants Negative (Negative)
== END 2023-03-27 21:37 | disposition home or self-care (01) ==
PROVIDERS: Emergency Provider Emergency Medicine; PCP Internal Medicine
DX: R51.9 Headache, unspecified (principal); R26.89 Other abnormalities of gait and mobility; D50.9 Iron deficiency anemia, unspecified; K74.60 Unspecified cirrhosis of liver
CPT/HCPCS: 80053; 80307; 96374; 99284; 70450; 72125; 73030; 80320; 81003; 83735; 85025; 85610; 85730; J0131

== ENCOUNTER 2023-03-31 19:47 | Emergency (ER) | payer MEDICARE, MEDICAID, SELFPAY ==
[2023-03-31 19:50] VITALS: BP 150/90; PULSE 88; RESP 20; TEMP 37; O2SAT 95
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
[2023-03-31] MEDS: chlordiazePOXIDE 25 MG CAP 100 MG PO (20:30)
[2023-03-31 20:37] LABS: Abs Immature Grans 0.01 10^3/uL (0.0-0.06); Absolute Basophil Count 0.08 10^3/uL (0.0-0.2); Absolute Eosinophil Count 0.03 10^3/uL (0.0-0.7); Absolute Lymphocyte Count 3.25 10^3/uL (1.2-3.4); Absolute Monocyte Count 0.46 10^3/uL (0.1-0.8); Absolute Neutrophil Count 3.12 10^3/uL (1.2-6.7); Basophils % 1.2; Eosinophils % 0.4; HCT 43.1 % (40.0-50.0); HGB 15.4 g/dL (13.5-17.5); Immature Grans % 0.1; Lymphocytes % 46.8; MCH 35.2 pg (27.0-33.0); MCHC 35.7 % (32.0-36.0); MCV 98 fL (80-95); MPV 9.2 fL (8.0-11.0); Monocytes % 6.6; Neutrophils % 44.9; Platelet Count 232 10^3/uL (130-400); RBC 4.38 10^6/uL (4.36-5.78); RDW 12.3 % (11.8-14.1); RDW-SD 45.1 fL; WBC 6.95 10^3/uL (4.4-10.8)
[2023-03-31 20:38] LABS: Bilirubin Negative (Negative); Blood Negative (Negative); Clarity Clear (Clear); Glucose Negative (Negative); Ketones Negative (Negative); Leukocyte Esterase Negative (Negative); Nitrite Negative (Negative); Specific Gravity 1.015 (1.005-1.025); Urobilinogen 0.2 mg/dL (Up to 0.2)
[2023-03-31 20:49] LABS: Lipase 26 U/L (16-77)
[2023-03-31 20:51] LABS: *AMPHETAMINES SCREEN URINE Negative (Negative); *BARBITURATES SCREEN URINE Negative (Negative); *BENZODIAZEPINES SCREEN URINE Negative (Negative); Cannabinoids THC Positive (Negative); Cocaine Screen,Urine Negative (Negative); METHADONE URINE SCREEN Negative (Negative); OPIATES URINE SCREEN Negative (Negative)
[2023-03-31 21:01] LABS: Salicylate 2.9 mg/dL (<2.8)
[2023-03-31 21:03] LABS: ALT 37 U/L (16-63); AST 36 U/L (15-37); Albumin 4.6 g/dL (3.4-5.0); Alkaline Phosphatase 150 U/L (46-116); Anion Gap 12.2 mmol/L (3-11); BUN 10 mg/dL (7-18); Bilirubin, Total 0.9 mg/dL (0.2-1.0); CO2 25.8 mmol/L (21.0-32.0); CREATININE 1.3 mg/dL (0.70-1.30); Calcium 9.2 mg/dL (8.5-10.1); Chloride 103 mmol/L (98-107); ETHANOL BLOOD 337.8 mg/dL (<10); Glucose 99 mg/dL (74-106); Potassium 3.4 mmol/L (3.5-5.1); Sodium 141 mmol/L (136-145); TSH (W/Ref FT4) 1.72 uIU/mL (0.36-3.74); Total Protein 8.6 g/dL (6.4-8.2); Tricyclic Antidepressants Negative (Negative)
[2023-03-31 21:04] LABS: Acetaminophen < 2 ug/mL (10-30)
[2023-04-01] MEDS: Acetaminophen 500 MG TAB 1000 MG PO (03:35)
[2023-04-01] MEDS: Ondansetron 4 MG/2 ML VIAL IVP (03:36)
--- NOTE | 2023-04-01 08:09 | ED.PROG_ITS ---
Date of service: 04/01/23 Time of Service: 11:07 Medical Decision Making Case taken over from Dr. Raygoza at 0800. Patient is a longtime alcoholic with psychiatric disease, possibly schizophrenia. He has been hallucinating and seeing things. He was quite intoxicated on arrival but is medically cleared at this time. It is thought that he has a history of DTs as well as cirrhosis. He is on CIWA protocol but his vital signs have been stable all night long. We are attempting to get his medication list from the local pharmacy. We are having psych evaluate him at this time. Reportedly he complains of being actively suicidal and has tried to hang himself in the past. 0830 Patient complains of feeling nauseous. He states that he occasionally has this when his alcohol level gets low. He denies chest pain or belly pain. He is starting to get a little bit tremulous. I will give him 2 mg of sublingual Ativan which should help his nausea and early withdrawal symptoms. States he feels less suicidal this morning but does want treatment for his depression and alcohol abuse. He did speak with [facility] last night and they advised him to come to the ED here. 09 Edwina from [facility] did [id number] with the patient and myself. He denies suicidality. He lives with his mom and sister and we will contact one of them ton confirm a safety plan. Patient did not tell Edwina that he wanted to go to [place] and I questioned him again about this. He says he thinks it would be easier to just go home and he wants to go home. We discussed this extensively. He denies suicidality to me and will check in with [facility] for the next 3 days between 3 and 4:00. He does have an appointment with his counselor on Sunday. He has contracted for safety plan. Pt. ready for d/c. He is going home with family and is safe for d/c. Discharge Plan Disposition Patient Disposition: Home Discharge Details Clinical Impression: Alcohol abuse with intoxication, Anxiety and depression Primary Care Provider: Sally De Leon ED Provider: Idalia Webb Home Meds and New Rx's Prescriptions: Continued furosemide [Lasix] 40 mg Tablet 60 mg DAILY spironolactone 25 mg Tablet 25 mg PO DAILY trazodone 100 mg Tablet 100 mg PO QHS pantoprazole 40 mg Tablet,Delayed Release (Dr/Ec) 40 mg PO DAILY oxycodone 5 mg Capsule 5 mg BID Patient Comments: No longer takes 02/01/2023 CT folic acid 1 mg Tablet 1 mg PO DAILY vitamin B6-vitamin E-magnesium Tablet 1 tab PO DAILY mecobalamin (vitamin B12) [B12 Active] 1,000 mcg Tablet,Chewable 500 mcg PO DAILY Patient Comments: Uses the capsules now 02/01/2023 CT hydroxyzine pamoate 50 mg capsule 1 cap PO QID Patient Comments: TAKE 1 CAPSULE BY MOUTH EVERY 4 HOURS NEEDED. NOT TO EXCEED 02/16 tramadol 50 mg tablet 1 tab PO HS Patient Comments: TAKE 1 TABLET BY MOUTH EVERY 8 HOURS NEEDED FOR PAIN. MAXIMUM DAILY DOSE IS 150 MG gabapentin 800 mg Tablet 800 mg PO TID sertraline 25 mg tablet 3 tab PO DAILY Patient Comments: TAKE 3 TABLETS BY MOUTH DAILY promethazine 25 mg tablet 25 mg PO ONCE Qty: 12 0RF Rx Instructions: may repeat once in 12 hours ondansetron 4 mg tablet,disintegrating 4 mg PO Q8H PRN (Reason: nausea and vomiting) Qty: 30 0RF Discharge Instructions Instructions: Abuse of Alcohol (ED), Anxiety (ED), Suicide Prevention (ED) Additional Instructions: Return to the ED or call crisis management for any thoughts of hurting yourself or others. Returning home to live with your mom and sister. You are to follow the instructions given [facility] regarding calling them Sunday and Sunday between 3 and 4:00. We need to follow-up with your counselor on Sunday as scheduled. Change your mind about going to [place] or other facility please return to emergency department.
[2023-04-01] MEDS: LORazepam 1 MG TAB 2 MG SL ×2 (08:32→10:56)
[2023-04-01] MEDS: Ondansetron O.D.T. 4 MG TABEF 8 MG PO (09:52)
[2023-04-01] MEDS: Gabapentin 800 MG TAB PO (09:52)
[2023-04-01] MEDS: hydrOXYzine HCL 25 MG TAB 50 MG PO (09:52)
[2023-04-01 10:43] VITALS: BP 132/82; PULSE 98; TEMP 36.5; O2SAT 92
== END 2023-04-01 12:01 | disposition home or self-care (01) ==
PROVIDERS: Student in an Organized Health Care Education/Training Program; Emergency Provider Emergency Medicine; PCP Internal Medicine
DX: F10.120 Alcohol abuse with intoxication, uncomplicated (principal); F41.9 Anxiety disorder, unspecified; F32.A Depression, unspecified; Z91.51 Personal history of suicidal behavior; R45.851 Suicidal ideations; Z79.899 Other long term (current) drug therapy
CPT/HCPCS: 80053; 80307; 83690; 96374; 99285; 80320; 80329; 81003; 84443; 85025; 99284; J2405

== ENCOUNTER 2023-04-14 23:19 | Emergency (ER) | payer MEDICARE, MEDICAID, SELFPAY ==
[2023-04-14 23:24] VITALS: BP 127/97; PULSE 105; RESP 18; TEMP 36.7; O2SAT 98
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
[2023-04-14] MEDS: Lidocaine/Epinephri/Tetracaine Topical Gel 3 ML (23:52)
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
[2023-04-15] MEDS: oxyCODONE 5 MG TAB PO (01:21)
[2023-04-15] MEDS: Ibuprofen 800 MG TAB PO (01:21)
[2023-04-15] MEDS: Acetaminophen 500 MG TAB 1000 MG PO (01:21)
--- NOTE | 2023-04-15 02:58 | DI.VRAD_ITS ---
PROCEDURE INFORMATION: Exam: CT Head Without Contrast Exam date and time: 04/15/2023 1:53 AM Age: 42 years old Clinical indication: Injury or trauma; Fall; Blunt trauma (contusions or hematomas); Consciousness not specified TECHNIQUE: Imaging protocol: Computed tomography of the head without contrast. COMPARISON: CT HEAD CERVICAL SPINE WO 03/27/2023 8:07 PM FINDINGS: Brain: There is no evidence of intracranial hemorrhage. No mass effect or midline shift. There is no brain edema. Unremarkable white matter. Cerebral ventricles: The ventricles and sulci are appropriate for the patient's age. Paranasal sinuses: There is an 11 mm retention cyst or polyp in the right maxillary sinus. Mastoid air cells: The visualized mastoid air cells are well aerated. Bones/joints: No acute fracture. Soft tissues: There are surgical cleo on the scalp at the left frontal convexity. There is underlying mild scalp hematoma. The IMPRESSION: 1. No acute intracranial findings. 2. Surgical cleo on the scalp at the left frontal convexity with underlying mild scalp hematoma. PROCEDURE INFORMATION: Exam: CT Cervical Spine Without Contrast Exam date and time: 04/15/2023 1:53 AM Age: 42 years old Clinical indication: Injury or trauma; Fall; Blunt trauma (contusions or hematomas); Consciousness not specified TECHNIQUE: Imaging protocol: Computed tomography of the cervical spine without contrast. COMPARISON: CT HEAD CERVICAL SPINE WO 03/27/2023 8:07 PM FINDINGS: Bones/joints: No acute fracture. There is normal alignment. At C5-C6, the posterior osteophytes and uncovertebral hypertrophic changes with moderate left and mild right neural foraminal narrowing. There is borderline central spinal canal stenosis. At C6-C7, there are central posterior and right subarticular osteophytes. No severe central spinal canal stenosis. There is moderate right neural foraminal narrowing. Lungs: Lung apices show no consolidation. Soft tissues: There are no paraspinal fluid collections or hematoma. IMPRESSION: 1. No evidence of acute fracture or acute traumatic subluxation. 2. Hypertrophic bony changes with corresponding neural foraminal narrowing at C5-C6 and C6-C7. 3. Balloon central spinal canal stenosis at C5-C6. Dictated and Authenticated by: Thierry Dodson MD. Ordering:EDOUARD Cruz MD
== END 2023-04-15 03:20 | disposition home or self-care (01) ==
PROVIDERS: Emergency Provider Student in an Organized Health Care Education/Training Program; PCP Internal Medicine
DX: S01.81XA Laceration without foreign body of other part of head, initial encounter (principal); W19.XXXA Unspecified fall, initial encounter; F10.90 Alcohol use, unspecified, uncomplicated
CPT/HCPCS: 12014; 90471; 99284; 70450; 72125

== ENCOUNTER 2023-04-19 12:22 | Emergency (ER) | payer MEDICARE, MEDICAID, SELFPAY ==
[2023-04-19 12:27] VITALS: BP 127/92; PULSE 110; RESP 18; TEMP 37.2; O2SAT 94
--- NOTE | 2023-04-19 13:50 | DI.RAD_ITS ---
Exam(s) XR KNEE LT 4V AP,LAT,FERNANDO,PAT EXAM: XR KNEE LT 4V AP,LAT,FERNANDO,PAT CLINICAL HISTORY: twisted knee, r/o effusion/fx. TECHNIQUE: 2D digital imaging was performed of the left knee. Four images were obtained. Merchant, AP, lateral and PA tunnel views were obtained. COMPARISON: No exams were available for comparison FINDINGS: BONES: No acute fracture is present. No bony destructive lesion is seen. JOINTS: The knee is normally aligned. No joint effusion is seen. Mild degenerative changes are seen i n the knee. SOFT TISSUE: Normal. IMPRESSION: No acute fracture or dislocation. DATA REPOSITORY: RADIATION DOSE DELIVERED:
--- NOTE | 2023-04-19 15:21 | ED.GENADUL_ITS ---
Discharge Plan Disposition Patient Disposition: Home Condition: Stable Discharge Details Clinical Impression: Left knee sprain Primary Care Provider: Sally De Leon ED Provider: Leanne Dow Home Meds and New Rx's Prescriptions: Continued furosemide [Lasix] 40 mg Tablet 60 mg DAILY spironolactone 25 mg Tablet 50 mg PO DAILY trazodone 100 mg Tablet 100 mg PO QHS pantoprazole 40 mg Tablet,Delayed Release (Dr/Ec) 40 mg PO DAILY folic acid 1 mg Tablet 1 mg PO DAILY vitamin B6-vitamin E-magnesium Tablet 1 tab PO DAILY mecobalamin (vitamin B12) [B12 Active] 1,000 mcg Tablet,Chewable 500 mcg PO DAILY Patient Comments: Uses the capsules now 02/01/2023 CT hydroxyzine pamoate 50 mg capsule 1 cap PO QID Patient Comments: TAKE 1 CAPSULE BY MOUTH EVERY 4 HOURS NEEDED. NOT TO EXCEED /24 tramadol 50 mg tablet 1 tab PO HS Patient Comments: TAKE 1 TABLET BY MOUTH EVERY 8 HOURS NEEDED FOR PAIN. MAXIMUM DAILY DOSE IS 150 MG gabapentin 800 mg Tablet 800 mg PO TID sertraline 25 mg tablet 3 tab PO DAILY Patient Comments: TAKE 3 TABLETS BY MOUTH DAILY No Action prazosin 2 mg capsule 2 mg PO HS Patient Comments: TAKE 1 CAPSULE BY MOUTH AT BEDTIME multivitamin [Multiple Vitamins] Tablet 1 tab PO QAM Qty: 30 0RF Mag 64 64 mg Tablet,Delayed Release (Dr/Ec) 64 mg PO DAILY Qty: 30 0RF thiamine mononitrate (vit B1) 100 mg tablet 100 mg PO DAILY Qty: 30 0RF potassium chloride 20 mEq tablet extended release 20 meq PO DAILY Qty: 7 0RF Discharge Instructions Instructions: Knee Sprain (ED) Additional Instructions: Your x-ray today showed no evidence of fracture or dislocation. Rest, ice, and elevate the affected area as much as possible. Keep the knee immobilizer in place until follow-up with orthopedics. You have been placed on orthopedic follow-up list for reevaluation within the next 1 to 2 weeks. Return immediately to the emergency department if you develop any worsening or new concerning symptoms. Referrals: Hero Maxwell MD [ [facility] STAFF PHYSICIAN] - Discharge Data Discharge Date/Time-TO BE ENTERED AT DEPARTURE: 04/19/23 16:02 Discharge Physician: Leanne Dow Medical Decision Making 42yo M presents with left knee pain after he misstepped yesterday while walking and twisted his knee hearing a pop with progressively worsening pain. Pt appears uncomfortable when moving his knee but otherwise is in no acute distress. His left anterior knee has minimal edema but no ecchymoses, erythema or deformity. His exam is limited as he has significant tenderness to palpation with even light touch to the entire knee or with any manipulation. There is no obvious ligamentous laxity. He was referred for xray which was negative. He has no fever or signs of cellulitis to suggest septic arthritis. He has no calf pain or leg edema to suggest DVT. He has no significant ecchymoses to suggest occult fracture. Pt requested narcotics. Due to his complaint of pain here, he was given 1 dose of oxycodone here and a 2 tab bottle of tramadol to go. Review of prescription monitoring program revealed that he has had multiple narcotic prescriptions over the last several months. He was placed on orthopedic follow up list. He was placed in a knee immolizer and given crutches. Usual and customary return precautions given prior to discharge. Medical Records Medical records reviewed: Yes I reviewed the patient's medical records. Imaging Data Radiologic Study: Radiologist's impression: XR KNEE LT 4V AP,LAT,FERNANDO,PAT CLINICAL HISTORY: ? twisted knee, r/o effusion/fx.? TECHNIQUE:? 2D digital imaging was performed of the left knee.? Four images were obtained.? Merchant,AP, lateral and PA tunnel? views were obtained. COMPARISON:? No exams were available for comparison FINDINGS: BONES:? No acute fracture is present. No bony destructive lesion is seen. JOINTS: The knee is normally aligned. No joint effusion is seen. Mild degenerative changes are seen in the knee. SOFT TISSUE: Normal. IMPRESSION: No acute fracture or dislocation.? HPI General Mode of arrival: ambulatory . Date/Time Provider Initiated Documentation: 04/19/23 12:33 . Limitations to Documentation: no limitations . Information obtained by: patient . HPI Narrative: Pt is a 42yo M with a history of GERD, alcohol and tobacco abuse, pancreatitis, anxiety and depression presents for left knee pain after he misstepped while walking yesterday and he reports that he heard a pop and had instant pain in his left knee. He states he has been unable to bear weight since then due to pain. Related Data Home Medications Medication Instructions Recorded Confirmed folic acid 1 mg tablet 1 mg PO DAILY 08/22/22 04/29/23 furosemide 40 mg tablet (Lasix) 60 mg DAILY 08/22/22 04/29/23 mecobalamin (vitamin B12) 1,000 500 mcg PO DAILY 08/22/22 04/29/23 mcg chewable tablet (B12 Active) pantoprazole 40 mg tablet,delayed 40 mg PO DAILY 08/22/22 04/29/23 release spironolactone 25 mg tablet 50 mg PO DAILY 08/22/22 04/29/23 trazodone 100 mg tablet 100 mg PO QHS 08/22/22 04/29/23 vitamin B6-vitamin E-magnesium 1 tab PO DAILY 08/22/22 04/29/23 tablet gabapentin 800 mg tablet 800 mg PO TID 09/24/22 04/29/23 hydroxyzine pamoate 50 mg capsule 1 cap PO QID 09/24/22 04/29/23 sertraline 25 mg tablet 3 tab PO DAILY 09/24/22 04/29/23 tramadol 50 mg tablet 1 tab PO HS 09/24/22 04/29/23 prazosin 2 mg capsule 2 mg PO HS 04/29/23 04/29/23 magnesium chloride 64 mg 64 mg PO DAILY #30 tabs 05/01/23 (magnesium chloride) tablet,delayed release (Mag 64) multivitamin (Multiple Vitamins 1 tab PO QAM #30 tabs 05/01/23 tablet) potassium chloride 20 mEq 20 meq PO DAILY #7 tabs 05/01/23 tablet,extended release thiamine mononitrate (vit B1) 100 100 mg PO DAILY #30 tabs 05/01/23 mg tablet Previous Rx's Medication Instructions Recorded magnesium chloride 64 mg 64 mg PO DAILY #30 tabs 05/01/23 (magnesium chloride) tablet,delayed release (Mag 64) multivitamin (Multiple Vitamins 1 tab PO QAM #30 tabs 05/01/23 tablet) potassium chloride 20 mEq 20 meq PO DAILY #7 tabs 05/01/23 tablet,extended release thiamine mononitrate (vit B1) 100 100 mg PO DAILY #30 tabs 05/01/23 mg tablet Allergies Allergy/AdvReac Type Severity Reaction Status Date / Time No Known Allergies Allergy Unverified 04/29/23 09:31 General Stated Complaint: Orthopedic DERICK: 4 Review of Systems All systems reviewed & are unremarkable except as noted in HPI and below Constitutional Constitutional: Reports as per HPI, Denies chills and Denies fever(s) Eyes Eyes: Denies blurry vision ENT Ears, Nose, Mouth, and Throat: Denies dizziness, Denies sore throat and Denies throat swelling Cardiovascular Cardiovascular: Denies chest pain and Denies dyspnea Respiratory Respiratory: Denies cough and Denies dyspnea Gastrointestinal Gastrointestinal: Denies abdominal pain, Denies diarrhea and Denies vomiting Genitourinary Genitourinary: Denies hematuria and Denies dysuria Musculoskeletal Musculoskeletal: Denies back pain and Denies numbness Comments: Left knee pain Integumentary/Breasts Skin/Breast: Denies lesions and Denies rash Neurologic Neurologic: Denies dizziness, Denies localized weakness and Denies numbness Allergic/Immunologic Allergic/Immunologic: Denies throat swelling PFSH All Active Problems (Updated 05/01/23 @ 15:43 by Leanne Dow DO) Hypomagnesemia (Acute) Hypokalemia (Acute) Discharge planning issues (Acute) DVT prophylaxis (Acute) Macrocytic anemia (Acute) Suicidal ideation (Acute) Alcohol abuse with intoxication (Acute) Anxiety and depression (Chronic) Laceration of scalp (Acute) Left knee sprain (Acute) Encounter for removal of cleo (Acute) Depression (Chronic) Alcohol withdrawal (Acute) Anemia (Chronic) Bilateral lower extremity edema (Acute) Cirrhosis of liver (Chronic) Medical History Alcohol abuse Cirrhosis of liver GERD (gastroesophageal reflux disease) Pancreatitis Suicide attempt Tobacco abuse Surgical History S/P abdominal paracentesis S/P hernia repair Family History Mother Heart disease Stroke Diabetes Hypertension Maternal Grandfather Diabetes Hypertension Maternal Grandmother Hypertension Social History (Updated 04/29/23 @ 18:53 by Ilana Dietz MD) Smoking/Tobacco Use Status: Current every day Tobacco Type: cigarettes Smoking packs per day: 2 Smoking cigarettes per day: 40.0 Counseling given: provider counseling and support medications Smoking risk assessment performed?: Yes Alcohol Intake: current Alcohol Intake frequency: 3 or more drinks per day Alcohol type: hard liquor Drug use: Occasionally Substance use type: marijuana Do you feel safe at home: Yes Do you feel safe in your relationship?: Yes Additional Social history: lives with mom and sister, sister in room. Exam Const General: cooperative and no acute distress Orientation: alert, awake and oriented x3 HENMT Head: normal to inspection Mouth: oral mucosae normal Eyes General: appearance normal, both eyes and all related structures Neck Neck: normal visual inspection Resp Effort & Inspection: normal respiratory effort and able to speak in complete sentences Cardio Rate: regular rate Skin General skin exam: no rashes or lesions noted Neuro General: patient alert, patient awake and patient oriented x3 Motor: muscle tone normal throughout Extrem Upper/lower leg/hip images: 1. Minimal edema noted to anterior and suprapatellar region of left knee. There is significant pain with even light touch to any area of left knee, worse in the anterior aspect. There is no erythema, ecchymoses, crepitus, rash or lesions. Other: Left knee: Negative anterior and posterior drawer tests. There is pain with nory jaden and varus stress. Limited ability to fully assess meniscus with James's test due to patient's level of pain. No obvious ligamentous laxity. No left calf tenderness. Left DP/PT pulses intact. Psych Appearance: grossly normal Affect: normal affect Course Vital Signs Vital signs: Vital Signs Temperature 98.9 F 04/19/23 12:27 Pulse 110 H 04/19/23 12:27 Respiratory Rate 18 04/19/23 12:27 Blood Pressure 127/92 H 04/19/23 12:27 Pulse Oximetry 94 04/19/23 12:27 Temperature 98.9 F 04/19/23 12:27 Temperature Source Oral 04/19/23 12:27 Pulse 110 H 04/19/23 12:27 Respiratory Rate 18 04/19/23 12:27 Respiratory Effort Normal, Non-Labored 04/19/23 12:34 Blood Pressure 127/92 H 04/19/23 12:27 Blood Pressure Position Sitting 04/19/23 12:27 Pulse Oximetry 94 04/19/23 12:27 Oxygen Delivery Method Room Air 04/19/23 12:27 Oxygen Flow Rate 0 04/19/23 12:27 Pain Level 10 04/19/23 12:27 PAWSS Have you Been Recently Intoxicated or Drunk Within the Last 30 days?: Unable to Obtain Have you Ever Experienced Previous Episodes of Alcohol Withdrawal?: Unable to Obtain Have you ever Experienced Withdrawal Seizures?: Unable to Obtain Have you ever Experienced Delirium Tremens(DT)s?: Unable to Obtain Have you ever undergone Alcohol Rehabilitation Treatment (i.e, inpt ot outpatient treatment programs)?: Unable to Obtain Have you ever Experienced Blackouts?: Unable to Obtain Have you ever Combined Alcohol with other Downers within the last 90 days?: Unable to Obtain Have you ever Combined Alcohol with any other Substance of Abuse during the last 90 days?: Unable to Obtain Positive Blood Alcohol level on Presentation? [PCS.BAL]: Unable to Obtain Evidence of Increased Autonomic Activity (i.e. HR>120, tremor, sweating, agit ation, nausea)?: Unable to Obtain
[2023-04-19] MEDS: oxyCODONE 5 MG TAB PO (15:52)
== END 2023-04-19 16:02 | disposition home or self-care (01) ==
PROVIDERS: Emergency Provider Physician Assistant; PCP Internal Medicine
DX: S83.92XA Sprain of unspecified site of left knee, initial encounter (principal); X58.XXXA Exposure to other specified factors, initial encounter; Y93.01 Activity, walking, marching and hiking
CPT/HCPCS: 29505; 99283; 73564

== ENCOUNTER 2023-04-20 11:46 | Emergency (ER) | payer MEDICARE, MEDICAID, SELFPAY ==
[2023-04-20 11:50] VITALS: BP 124/83; PULSE 97; RESP 16; TEMP 37.1; O2SAT 96
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
== END 2023-04-20 12:09 | disposition home or self-care (01) ==
PROVIDERS: Emergency Provider Emergency Medicine; PCP Internal Medicine
DX: Z48.02 Encounter for removal of sutures (principal); S01.01XD Laceration without foreign body of scalp, subsequent encounter; X58.XXXD Exposure to other specified factors, subsequent encounter

== ENCOUNTER 2023-04-28 20:45 | Inpatient (IN) | payer MEDICARE, MEDICAID, SELFPAY ==
[2023-04-28 20:40] VITALS: BP 129/78; PULSE 101; RESP 20; TEMP 36.5; O2SAT 94
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
[2023-04-28 21:15] LABS: Abs Immature Grans 0.02 10^3/uL (0.0-0.06); Absolute Basophil Count 0.07 10^3/uL (0.0-0.2); Absolute Eosinophil Count 0.09 10^3/uL (0.0-0.7); Absolute Lymphocyte Count 2.57 10^3/uL (1.2-3.4); Absolute Monocyte Count 0.63 10^3/uL (0.1-0.8); Absolute Neutrophil Count 2.85 10^3/uL (1.2-6.7); Basophils % 1.1; Eosinophils % 1.4; HCT 39.2 % (40.0-50.0); HGB 13.8 g/dL (13.5-17.5); Immature Grans % 0.3; Lymphocytes % 41.3; MCH 34.8 pg (27.0-33.0); MCHC 35.2 % (32.0-36.0); MCV 99 fL (80-95); Monocytes % 10.1; Neutrophils % 45.8; Platelet Count 201 10^3/uL (130-400); RBC 3.97 10^6/uL (4.36-5.78); RDW 12.9 % (11.8-14.1); WBC 6.23 10^3/uL (4.4-10.8)
--- NOTE | 2023-04-28 21:19 | NUR.NOTE ---
Pts mother, Fay, called #[phone]. Updated on plan of care and verb understanding. She has no immediate concerns at this time.
[2023-04-28 21:35] LABS: Acetaminophen < 2 ug/mL (10-30)
[2023-04-28 21:39] LABS: ALT 36 U/L (16-63); AST 41 U/L (15-37); Albumin 4.2 g/dL (3.4-5.0); Alkaline Phosphatase 144 U/L (46-116); Anion Gap 12.1 mmol/L (3-11); BUN 10 mg/dL (7-18); Bilirubin, Total 0.5 mg/dL (0.2-1.0); CO2 24.9 mmol/L (21.0-32.0); CREATININE 1.1 mg/dL (0.70-1.30); Calcium 8.9 mg/dL (8.5-10.1); Chloride 104 mmol/L (98-107); Estimated GFR 85.42 (mL/min/1.73m2); Glucose 94 mg/dL (74-106); Potassium 3.3 mmol/L (3.5-5.1); Sodium 141 mmol/L (136-145); TSH (W/Ref FT4) 2.88 uIU/mL (0.36-3.74); Total Protein 7.9 g/dL (6.4-8.2)
[2023-04-28 21:40] LABS: ETHANOL BLOOD 389.4 mg/dL (<10)
[2023-04-28] MEDS: Acetaminophen 500 MG TAB 1000 MG PO (21:48)
[2023-04-29] VITALS (38 sets, daily range): BP systolic 118–142; BP diastolic 69–94; PULSE 74–112; RESP 12–20; TEMP 37.4; O2SAT 93–98
[2023-04-29 00:02] LABS: Bilirubin Negative (Negative); Blood Negative (Negative); Clarity Clear (Clear); Glucose Negative (Negative); Ketones Negative (Negative); Leukocyte Esterase Negative (Negative); Nitrite Negative (Negative); Urobilinogen 0.2 mg/dL (Up to 0.2); pH 6.5 (5-8)
[2023-04-29 00:13] LABS: *AMPHETAMINES SCREEN URINE Negative (Negative); *BARBITURATES SCREEN URINE Negative (Negative); *BENZODIAZEPINES SCREEN URINE Negative (Negative); Cannabinoids THC Negative (Negative); Cocaine Screen,Urine Negative (Negative); METHADONE URINE SCREEN Negative (Negative); OPIATES URINE SCREEN Negative (Negative); Tricyclic Antidepressants Negative (Negative)
[2023-04-29] MEDS: Ibuprofen 600 MG TAB PO (01:03)
[2023-04-29] MEDS: LORazepam 1 MG TAB 2 MG PO ×2 (02:48→12:00)
[2023-04-29] MEDS: Ondansetron O.D.T. 4 MG TABEF PO (09:00)
--- NOTE | 2023-04-29 09:00 | NUR.NOTE ---
Nursing Note: pt states he does not want breakfast.
--- NOTE | 2023-04-29 09:00 | NUR.NOTE ---
Addendum entered by Ann-Marie Posey 04/29/23 10:10: Trudi Huggins from [facility] came to speak with patient. Original Note: Nursing Note: Called [facility] to come talk to patient
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
[2023-04-29] MEDS: LORazepam 1 MG TAB PO (14:40)
[2023-04-29] MEDS: Lactated Ringers 1,000 ML 1000 ML IV (14:40)
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
[2023-04-29 17:07] LABS: Abs Immature Grans 0.01 10^3/uL (0.0-0.06); Absolute Basophil Count 0.04 10^3/uL (0.0-0.2); Absolute Eosinophil Count 0.02 10^3/uL (0.0-0.7); Absolute Lymphocyte Count 1.42 10^3/uL (1.2-3.4); Absolute Monocyte Count 0.35 10^3/uL (0.1-0.8); Absolute Neutrophil Count 3.63 10^3/uL (1.2-6.7); Basophils % 0.7; Eosinophils % 0.4; HCT 36.4 % (40.0-50.0); HGB 12.7 g/dL (13.5-17.5); Immature Grans % 0.2; MCH 34.5 pg (27.0-33.0); MCHC 34.9 % (32.0-36.0); MCV 99 fL (80-95); MPV 9.1 fL (8.0-11.0); Monocytes % 6.4; Neutrophils % 66.3; Platelet Count 169 10^3/uL (130-400); RBC 3.68 10^6/uL (4.36-5.78); RDW 12.5 % (11.8-14.1); RDW-SD 45.9 fL; WBC 5.47 10^3/uL (4.4-10.8)
[2023-04-29 17:16] LABS: Anion Gap 10.7 mmol/L (3-11); BUN 12 mg/dL (7-18); CO2 23.3 mmol/L (21.0-32.0); Calcium 8.5 mg/dL (8.5-10.1); Chloride 105 mmol/L (98-107); Estimated GFR 95.77 (mL/min/1.73m2); Glucose 76 mg/dL (74-106); Magnesium 1.7 mg/dL (1.8-2.4); Potassium 3.9 mmol/L (3.5-5.1); Sodium 139 mmol/L (136-145)
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
--- NOTE | 2023-04-29 18:47 | NUR.NOTE ---
Nursing Note: Phenobarb for 1800 dose was taken from donta in ED and brought up per ICU nurse request. Brought with 50mL bag. This RN did not administer the phenobarb dose. Did not waste with the ICU nurse
[2023-04-29] MEDS: PHENobarbital 140 MG in Normal Saline 50 ML 100 MG IVPB ×2 (19:00→23:37)
[2023-04-29] MEDS: THIAMINE 500 MG in Normal Saline 100 ML 200 MG IVPB (20:05)
[2023-04-29] MEDS: Enoxaparin 40 MG/0.4 ML SYR SC (20:05)
[2023-04-29] MEDS: hydrOXYzine PAMOATE 25 MG CAP 50 MG PO (20:06)
[2023-04-29] MEDS: Gabapentin 800 MG TAB PO (20:06)
[2023-04-29] MEDS: Magnesium Chloride 64 MG TABCR PO (20:07)
[2023-04-29] MEDS: Normal Saline Flush 10 ML SYR IVP (20:07)
[2023-04-29] MEDS: MAGNESIUM SULFATE 2 GM/50 ML BAG IVPB (20:46)
[2023-04-29] MEDS: traZODone 100 MG TAB PO (21:53)
[2023-04-29] MEDS: traMADol 50 MG TAB PO (21:53)
[2023-04-30] VITALS (23 sets, daily range): BP systolic 104–133; BP diastolic 57–103; PULSE 66–97; RESP 10–18; TEMP 36.7–37.6; O2SAT 93–97
[2023-04-30 05:41] LABS: Abs Immature Grans 0.01 10^3/uL (0.0-0.06); Absolute Basophil Count 0.04 10^3/uL (0.0-0.2); Absolute Eosinophil Count 0.13 10^3/uL (0.0-0.7); Absolute Lymphocyte Count 1.39 10^3/uL (1.2-3.4); Absolute Neutrophil Count 2.82 10^3/uL (1.2-6.7); Basophils % 0.8; Eosinophils % 2.7; HCT 35.3 % (40.0-50.0); HGB 12.4 g/dL (13.5-17.5); Immature Grans % 0.2; MCH 35.2 pg (27.0-33.0); MCHC 35.1 % (32.0-36.0); MCV 100 fL (80-95); MPV 9.6 fL (8.0-11.0); Monocytes % 8.4; Neutrophils % 58.9; Platelet Count 146 10^3/uL (130-400); RBC 3.52 10^6/uL (4.36-5.78); RDW 12.6 % (11.8-14.1); RDW-SD 46.4 fL; WBC 4.79 10^3/uL (4.4-10.8)
[2023-04-30 05:47] LABS: Ammonia 24 umol/L (11-32)
[2023-04-30 05:54] LABS: BUN 14 mg/dL (7-18); Calcium 8.2 mg/dL (8.5-10.1); Chloride 103 mmol/L (98-107); Estimated GFR 95.77 (mL/min/1.73m2); Glucose 78 mg/dL (74-106); Magnesium 2.2 mg/dL (1.8-2.4); Potassium 3.6 mmol/L (3.5-5.1); Sodium 137 mmol/L (136-145)
[2023-04-30 06:29] LABS: Folate 19.2 ng/mL (8.6-20.0); Vitamin B12 280 pg/mL (193-986)
[2023-04-30] MEDS: THIAMINE 500 MG in Normal Saline 100 ML 200 MG IVPB ×2 (06:57→15:53)
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
[2023-04-30] MEDS: Sertraline 25 MG TAB 75 MG PO (08:28)
[2023-04-30] MEDS: hydrOXYzine PAMOATE 25 MG CAP 50 MG PO ×4 (08:29→19:51)
[2023-04-30] MEDS: Folic Acid 1 MG TAB PO (08:30)
[2023-04-30] MEDS: Magnesium Chloride 64 MG TABCR PO ×2 (08:30→19:52)
[2023-04-30] MEDS: Multivitamin TAB 1 TAB PO (08:31)
[2023-04-30] MEDS: Gabapentin 800 MG TAB PO ×3 (08:31→19:52)
[2023-04-30] MEDS: Pantoprazole 40 MG TABCR PO (08:31)
[2023-04-30] MEDS: FUROSEMIDE 40 MG, FUROSEMIDE 20 MG 60 MG PO (08:31)
[2023-04-30] MEDS: Spironolactone 50 MG TAB PO (08:41)
[2023-04-30] MEDS: PHENobarbital 130 MG/ML VIAL IVP (08:44)
[2023-04-30] MEDS: Normal Saline Flush 10 ML SYR IVP ×3 (08:45→20:04)
[2023-04-30] MEDS: Acetaminophen 325 MG TAB PO ×2 (10:22→21:04)
[2023-04-30] MEDS: Cyanocobalamin 1000 MCG/ML VIAL IM/SC (10:23)
--- NOTE | 2023-04-30 11:39 | W.PM.PROGNOT ---
Date of Service Date of service: 04/30/23 Time of Service: 09:00 Assessment and Plan Assessment and plan (1) Alcohol withdrawal: Status: Acute Assessment and plan: Continue phenobarb protocol. Supplement MVI, thiamine. Replete B12 (deficient by labs). Phenobarb level 8.0 ug/mL. (2) Alcohol abuse with intoxication: Status: Acute Assessment and plan: As above (3) Suicidal ideation: Status: Acute Assessment and plan: Mental health recommends voluntary psychiatric placement. Continue suicide precautions. (4) Homicide attempt: Status: Suspected Assessment and plan: I am not sure if this is truly classified as that. The patient denied homicidal ideation. as above (5) Cirrhosis of liver: Status: Chronic Assessment and plan: Continue home furosemide + aldactone. Ammonia wnl. No evidence of encephalopathy. Cautious dosing of phenobarbital. (6) Macrocytic anemia: Status: Acute Assessment and plan: Evidence of B12 deficiency - replete. Already on folate repletion. (7) DVT prophylaxis: Status: Acute Assessment and plan: SC enoxaparin (8) Discharge planning issues: Status: Acute Assessment and plan: Full code. Keep in ICU. Total Critical Care Time [address] Hansen. Subjective Subjective Interval history since last seen: Mr Guerrero feels better. Muscles feel less tense, but he still has pain all over, he states. Denies dizziness, reports a headache and nausea, reports tremulousness. No CP, SOB. Denies hallucinations. Exam Narrative Exam Narrative: General: Tremulous middle-aged male who is A&Ox3, resting in bed, awake, cooperative, looks better HEENT: Atraumatic, normocephalic, EOMI, dry MM, clear oropharynx, white film over tongue, no submandibular or cervical lymphadenopathy, no goiter or JVD Cardiovascular: RRR, no m/r/g Lungs: CTAB anteriorly Gastrointestinal: soft, nontender, nondistended Extremities: no e/c/c. Objective Last Vital Signs Temp 37 C 04/30/23 09:00 Pulse 80 04/30/23 09:59 Resp 17 04/30/23 09:59 BP 123/77 04/30/23 09:59 Pulse Ox 93 04/30/23 09:59 Laboratory Results - last 24 hr 04/29/23 04/29/23 04/30/23 17:00 17:00 05:28 WBC 5.47 RBC 3.68 L Hgb 12.7 L Hct 36.4 L MCV 99 H MCH 34.5 H MCHC 34.9 RDW 12.5 Plt Count 169 MPV 9.1 Immature Gran % 0.2 Neutrophils % 66.3 Lymphocytes % 26.0 Monocytes % 6.4 Eosinophils % 0.4 Basophils % 0.7 Nucleated RBC % 0.0 Absolute Neutrophils 3.63 Absolute Lymphocytes 1.42 Absolute Monocytes 0.35 Absolute Eosinophils 0.02 Absolute Basophils 0.04 Sodium 139 137 Potassium 3.9 3.6 Chloride 105 103 Carbon Dioxide 23.3 24.0 Anion Gap 10.7 10.0 BUN 12 14 Creatinine 1.0 1.0 Est GFR (CKD-EPI 2020) 95.77 95.77 Glucose 76 78 Calcium 8.5 8.2 L Magnesium 1.7 L 2.2 Ammonia Vitamin B12 Folate Phenobarbital 04/30/23 04/30/23 04/30/23 05:28 05:28 05:28 WBC 4.79 RBC 3.52 L Hgb 12.4 L Hct 35.3 L MCV 100 H MCH 35.2 H MCHC 35.1 RDW 12.6 Plt Count 146 MPV 9.6 Immature Gran % 0.2 Neutrophils % 58.9 Lymphocytes % 29.0 Monocytes % 8.4 Eosinophils % 2.7 Basophils % 0.8 Nucleated RBC % 0.0 Absolute Neutrophils 2.82 Absolute Lymphocytes 1.39 Absolute Monocytes 0.40 Absolute Eosinophils 0.13 Absolute Basophils 0.04 Sodium Potassium Chloride Carbon Dioxide Anion Gap BUN Creatinine Est GFR (CKD-EPI 2020) Glucose Calcium Magnesium Ammonia 24 Vitamin B12 280 Folate 19.2 Phenobarbital 8.0 L PAWSS Have you Been Recently Intoxicated or Drunk Within the Last 30 days?: Yes Have you Ever Experienced Previous Episodes of Alcohol Withdrawal?: Yes Have you ever Experienced Withdrawal Seizures?: Yes Have you ever Experienced Delirium Tremens(DT)s?: Yes Have you ever undergone Alcohol Rehabilitation Treatment (i.e, inpt ot outpatient treatment programs)?: Yes Have you ever Experienced Blackouts?: Yes Have you ever Combined Alcohol with other Downers within the last 90 days?: No Have you ever Combined Alcohol with any other Substance of Abuse during the last 90 days?: Yes Positive Blood Alcohol level on Presentation? [PCS.BAL]: Yes Evidence of Increased Autonomic Activity (i.e. HR>120, tremor, sweating, agitation, nausea)?: Yes Result: 10 Multi-Disciplinary Checklist Lines/Tubes CENTRAL LINE: no ARTERIAL LINE: no BELLA: no ENDOTRACHEAL TUBE: no ICU Maintenance GLUCOSE 140-180mg/dL: no, Reason/Intervention: Not diabetic NUTRITION AT GOAL: yes PRESSURE ULCER: no RESTRAINTS: no ANTIBIOTICS(if yes, consider Stewardship): No Social Issues FAMILY UPDATED: no, Reason/Intervention: None at bedside PT/OT: no, Reason/Intervention: Not clinically indicated GOALS/DISPOSITION/MARKETING INFORMATION MANAGER: yes CODE STATUS: Full Prophylaxis DVT PROPHYLAXIS: yes GI PROPHYLAXIS: no Time Spent with Patient Time Spent with Patient: 25-34 minutes Time was spent: preparing to see the patient(eg.review tests), obtaining and/or reviewing separately otained hiistory, ordering medications,tests, procedures, referring, communicating with other health care consultant, indepentently interpreting results, counseling the patient and care coordination
[2023-04-30] MEDS: Ondansetron 4 MG/2 ML VIAL IVP ×2 (12:08→20:05)
--- NOTE | 2023-04-30 14:46 | MHPN_ITS ---
Date of service: 04/30/23 Time of Service: 14:46 PHQ-9 Over the last 2 weeks, how often have you been bothered by any of the following problems? 1. Little interest or pleasure in doing things: several days 2. Feeling down, depressed, or hopeless: nearly every day 3. Trouble falling or staying asleep, or sleeping too much: not at all 4. Feeling tired or having little energy: several days 5. Poor appetite or overeating: not at all 6. Feeling bad about yourself - or that you are a failure or have let yourself and your family down: several days 7. Trouble concentrating on things, such as reading the newspaper or watching television: several days 8. Moving or speaking so slowly that other people could have noticed? - Or the opposite - being so fidgety or restless that you have been moving around a lot more than usual: several days 9. Thoughts that you would be better off or of hurting yourself in some way: several days Total score: 9 If you checked off any problems, how difficult have these problems made it for you to do your work, take care of things at home, or get along with other people?: somewhat difficult Source: Developed by Drs. David Sevilla, Keiko Gonzalez, Dank Cox and colleagues, with an educational ana from [employer]. Suicide Severity Rate CSSRS Have you wished you were or wished you could go to sleep and not wake up?: Yes Have you actually had any thoughts of killing yourself?: No CSSRS3 Have you ever done anything, started to do anything or prepared to do anything to end your life?: Yes CSSRS4 Was this within the past three months?: No Screening Score Total Score: 4 Screening: Positive Mental Health Emergency Note Release NK release signed:: Yes Reason for Visit Client is a known AO consumer of [employer]. He is followed by Clarissa Hanson for therapy. Client presented to the ED on 04.28.23 with hx of alcohol abuse and depression comes in intoxicated after drinking hard alcohol and states he is more depressed per Dr. Shearer's ED note. Client stated he wanted to leave today and so [facility] was requested to assess the client for safety. This clinician met with the client face to face. In the last 2 weeks has the pt presented for ES prior to today?: Unknown Client Information Client is: Substance use Well Housed: Yes Non Suicidal Self Injury Current: No History: No Safety Risk/Harm to Self or Others Current Ideation to Harm Self or Others: No Risk: Does risk to harm exist?: No Risk: Low Risk Duty to warn indicated: No Asssessment/Mental Status Appearance: Disheveled Attitude: Cooperative Behavior: Unremarkable Speech: Soft Affect: Flat Mood: Depressed Thought process: Goal directed Hallucinations: No Delusions: No Attention: Unremarkable Perception: Not impaired Orientation: Fully orientated Memory: Intact Insight: Good Judgement: Good Neurovegetative Symptoms Sleep: Decrease Appetitie: Decrease Interests: Decrease Energy: Decrease Libido: Not applicable Substance Use: ETOH dependence Do you use nicotine?: Yes Have you used substances in the last 7 days?: yes, ETOH prior to coming into the hospital. Additional Issues: Assaultive/Threatening Behavior: No Medical Concerns: Yes Client engaged in active self harm w/weapon: No Threatening to run away: No Child reported abuse/neglect: No Voluntarily presenting for services: Yes Domestic violence is a concern: No Extreme Psychosis or extreme behavior is present: No Impression Client is a 42 year old, , male who lives with his sister in [facility]. He presented to the ED on 04.28.23 with hx of alcohol abuse and depression comes in intoxicated after drinking hard alcohol and states he is more depressed per Dr. Shearer's ED note. He expressed his wishes to leave today and so an earlier than typical consult was requested. He denied memories of the incident with his sister and is tearful when sharing what he heard he had done. He said that is not me. The client showed good insight and judgment and he made fair eye contact through the discussion. He is open to having a discussion with [facility] and having a referral for case management to look at potential volunteer work to help keep him busy. He is willing to stay for medical clearance and not leave until the doctor said he is safe to do so. He does have an appointment scheduled with Clarissa on May 04, @ 2pm. He acknowledged that missed appointments previous and not taking his medications played a factor in his decompensation along with his drinking. His diagnosis of generalized anxiety disorder is what is listed in his chart. It is this clinician's opinion that he also may be struggling with some depression/trauma as well. Resources [facility] reviewed and given:: [facility] and [facility] Plan/Disposition Recommended Disposition: Therapy. Plan: Client is cleared from at this time as it seems his actions were based on his substance use. Care Mangers will connect him with [facility] and he has agreed to stay until he is medically cleared. This clinician will put in a referral for case management. Person reported agreement to plan: Yes Reports/communication Outcome discussed with: ED/Personnel
[2023-04-30] MEDS: Enoxaparin 40 MG/0.4 ML SYR SC (18:25)
[2023-04-30] MEDS: traZODone 100 MG TAB PO (21:05)
[2023-04-30] MEDS: Prazosin 2 MG CAP PO (21:06)
[2023-04-30] MEDS: traMADol 50 MG TAB PO (21:06)
[2023-05-01] VITALS (8 sets, daily range): BP systolic 97–128; BP diastolic 58–84; PULSE 58–91; RESP 11–20; TEMP 36.1–36.8; O2SAT 94–96
[2023-05-01] MEDS: THIAMINE 500 MG in Normal Saline 100 ML 200 MG IVPB ×2 (00:56→08:07)
[2023-05-01 07:07] LABS: Absolute Basophil Count 0.04 10^3/uL (0.0-0.2); Absolute Eosinophil Count 0.18 10^3/uL (0.0-0.7); Absolute Lymphocyte Count 1.42 10^3/uL (1.2-3.4); Absolute Monocyte Count 0.28 10^3/uL (0.1-0.8); Absolute Neutrophil Count 1.49 10^3/uL (1.2-6.7); Basophils % 1.2; Eosinophils % 5.3; HGB 12.4 g/dL (13.5-17.5); Lymphocytes % 41.6; MCH 34.6 pg (27.0-33.0); MCHC 34.4 % (32.0-36.0); MCV 101 fL (80-95); MPV 9.8 fL (8.0-11.0); Monocytes % 8.2; Neutrophils % 43.7; Platelet Count 136 10^3/uL (130-400); RBC 3.58 10^6/uL (4.36-5.78); RDW 12.4 % (11.8-14.1); RDW-SD 45.8 fL; WBC 3.41 10^3/uL (4.4-10.8)
[2023-05-01 07:21] LABS: ALT 26 U/L (16-63); AST 22 U/L (15-37); Albumin 3.4 g/dL (3.4-5.0); Alkaline Phosphatase 123 U/L (46-116); Anion Gap 6.7 mmol/L (3-11); BUN 13 mg/dL (7-18); Bilirubin, Direct 0.3 mg/dL (0.0-0.2); Bilirubin, Total 1.1 mg/dL (0.2-1.0); CO2 26.3 mmol/L (21.0-32.0); CREATININE 1.3 mg/dL (0.70-1.30); Calcium 8.5 mg/dL (8.5-10.1); Chloride 102 mmol/L (98-107); Glucose 106 mg/dL (74-106); Potassium 3.2 mmol/L (3.5-5.1); Sodium 135 mmol/L (136-145); Total Protein 6.7 g/dL (6.4-8.2)
[2023-05-01] MEDS: hydrOXYzine PAMOATE 25 MG CAP 50 MG PO ×2 (08:08→11:15)
[2023-05-01] MEDS: Multivitamin TAB 1 TAB PO (08:08)
[2023-05-01] MEDS: FUROSEMIDE 40 MG, FUROSEMIDE 20 MG 60 MG PO (08:08)
[2023-05-01] MEDS: traMADol 50 MG TAB PO (08:10)
[2023-05-01] MEDS: Sertraline 25 MG TAB 75 MG PO (08:10)
[2023-05-01] MEDS: Cyanocobalamin 500 MCG TAB 1000 MCG PO (08:10)
[2023-05-01] MEDS: Folic Acid 1 MG TAB PO (08:11)
[2023-05-01] MEDS: Gabapentin 800 MG TAB PO ×2 (08:11→13:47)
[2023-05-01] MEDS: Potassium Chloride 20 MEQ TABCR 40 MEQ PO (08:11)
[2023-05-01] MEDS: Spironolactone 50 MG TAB PO (08:11)
[2023-05-01] MEDS: Magnesium Chloride 64 MG TABCR PO (08:11)
[2023-05-01] MEDS: Pantoprazole 40 MG TABCR PO (08:11)
--- NOTE | 2023-05-01 13:50 | PHA.REVIEW2 ---
Pharmacy Admission Review - Admission Clinical Review (Last Reviewed 04/15/23 @ 00:24 by Anthony Raygoza DO) Discharge planning issues (Acute) DVT prophylaxis (Acute) Macrocytic anemia (Acute) Suicidal ideation (Acute) Alcohol abuse with intoxication (Acute) Alcohol withdrawal (Acute) No Known Allergies Allergy (Unverified 04/29/23 09:31) Resuscitation Status Full Code Height 6 ft 1 in Weight 104.128 kg - Renal Dosing Renal Dosing: BUN 13 mg/dL (7-18) 05/01/23 06:25 Creatinine 1.3 mg/dL (0.70-1.30) 05/01/23 06:25 Medications needing adjustments: Reviewed (Crcl ~92.9 mL/min current meds okay) - Anticoagulation Anticoagulation: Hgb 12.4 g/dL (13.5-17.5) L 05/01/23 06:25 Hct 36.0 % (40.0-50.0) L 05/01/23 06:25 Plt Count 136 10^3/uL (130-400) 05/01/23 06:25 Creatinine 1.3 mg/dL (0.70-1.30) 05/01/23 06:25 DVT Prophylaxis: Reviewed Medications: Enoxaparin Therapeutic Anticoagulation: N/A - Opiate Usage Evaluate Pain Scale/Pains Meds: Reviewed Scheduled Bowel Reg ordered if on Opiates?: No (PRN docusate ordered) - Relevant Labs Sodium 135 mmol/L (136-145) L 05/01/23 06:25 Potassium 3.2 mmol/L (3.5-5.1) L 05/01/23 06:25 Chloride 102 mmol/L (98-107) 05/01/23 06:25 Magnesium 2.0 mg/dL (1.8-2.4) 05/01/23 06:25 Electrolytes, C-Reactive P, ESR: Reviewed (PO potassium ordered) - DM Control DM Control: Glucose 106 mg/dL (74-106) 05/01/23 06:25 DM Control: Reviewed (BG within normal limits, no DM noted in medical history) - Cardiac Review BP, HR, EF%: Reviewed (BP and HR have been mostly within normal limits so far this admission) - Qtc Review QTc: N/A - IV to PO Switch IV Medications: Reviewed - Home Meds Home Med List reviewed: Reviewed - Current meds Current Medication Order Review: Intervened (adjusted the timing of the pantoprazole based on the medical laboratory technical officer time policy) - Comments Comments/Follow Ups: Watch VS, K+, labs, CIWA score, cumulative phenobarbital dosing, and for med changes. Pt has received a total of 600 mg of phenobarbital so far; the patient has not required any doses in the past 24 hours.
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
--- NOTE | 2023-05-01 16:56 | CMDISCH_ITS ---
Date of service: 05/01/23 Time of Service: 16:56 LACE Index Scoring Tool Questions: Length of Stay (in days): 2 Was the patient admitted via the E.D.?: Yes Comorbidities: Mild Liver/Renal Disease E.D. Visits: 9 Answers: Total Score: 11 Risk of Readmission: High Risk Care Management Discharge Plan Reason for Hospitalization: Alcohol withdrawal, SI/HI Discharge Plan: Mc will return home when ready per MD, [facility] and follow up with PCP. He will transport via private vehicle with family. Patient/Family Education Needs: Review discharge instructions, discuss Ask Me Three.
== END 2023-05-01 15:25 | disposition home or self-care (01) | DRG 897 ==
LOC: ER 04-29 15:54 → ICU 04-29 18:31 → MS 05-01 05:08
PROVIDERS: Emergency Medicine; Admitting Provider Internal Medicine; Emergency Provider Student in an Organized Health Care Education/Training Program; PCP Internal Medicine; Visit Provider Internal Medicine
DX: F10.129 Alcohol abuse with intoxication, unspecified (principal); R45.851 Suicidal ideations; F10.139 Alcohol abuse with withdrawal, unspecified; F41.8 Other specified anxiety disorders; F12.90 Cannabis use, unspecified, uncomplicated; F17.210 Nicotine dependence, cigarettes, uncomplicated; K21.9 Gastro-esophageal reflux disease without esophagitis; R60.0 Localized edema; Y90.8 Blood alcohol level of 240 mg/100 ml or more; D53.9 Nutritional anemia, unspecified; K70.30 Alcoholic cirrhosis of liver without ascites; E83.42 Hypomagnesemia; E87.6 Hypokalemia
CPT/HCPCS: 36415; 80048; 80053; 80076; 80307; 96361; 96365; 99285; J1650; 80184; 80320; 80329; 81003; 82140; 82607; 82746; 83735; 84443; 85025; 87081; 99239; 99291; J2405; J2560; J3420

== ENCOUNTER → 2023-05-14 12:51 | Outpatient (BNVA) | payer MEDICARE, MEDICAID, SELFPAY | PROVIDERS: PCP Internal Medicine; Referring Provider Internal Medicine | DX: M23.92 Unspecified internal derangement of left knee (principal) | CPT/HCPCS: 99213 ==

== ENCOUNTER 2023-06-06 02:08 | Outpatient (CLI) | payer MEDICARE, MEDICAID, SELFPAY ==
--- NOTE | 2023-06-06 07:15 | DI.MRI_ITS ---
Exam(s) MR LOWER JOINT LT WO EXAM: MR LOWER JOINT LT WO CLINICAL HISTORY: PAIN,internal derangement lt knee, m23.92 TECHNIQUE: Multiplanar multisequence MRI of the knee was performed. COMPARISON: CR XR KNEE LT 4V AP,LAT,FERNANDO,PAT from 04/19/2023 FINDINGS: EFFUSION: Small amount of increased joint fluid. There is no large knee joint effusion and there is a tiny sub cm Haas cyst in the medial popliteal fossa. MARROW:There is prominent abnormal marrow signal evident in proximal tibia, extending beyond the fiel d of view of this study into the tibial diaphysis. Appearance is most probably that of a bone infarc t. No abnormal intraosseous signal in the femoral condyles nor in the fibular head and neck nor with in the patella. PATELLOFEMORAL COMPARTMENT: The quadriceps tendon is intact. The patellar ligament is intact. There is a shallow trochlear notch and mild patellar tilting. There is a focus of significant thinni ng of the retropatellar cartilage over the medial aspect of the lateral facet. No true osteochondral defect at this level.There is no intraosseous signal to suggest recent patellar dislocation. There a re no patellar retinacular tears. CRUCIATE LIGAMENTS: The anterior cruciate ligament is intact.The posterior cruciate ligament is intac t. MEDIAL COMPARTMENT/MEDIAL MENISCUS: There are no tears of the medial meniscus evident.. There are no chondral defects, osteochondral defects, subarticular marrow edema, nor osteophytes evid ent. MEDIAL COLLATERAL LIGAMENT: Intact LATERAL COMPARTMENT/LATERAL MENISCUS: There is no evidence of lateral meniscal tear.There are no sharita dral defects, osteochondral defects, subarticular marrow edema, nor osteophytes evident. ILIOTIBIAL BAND: Intact LATERAL COLLATERAL LIGAMENT COMPLEX: The fibular collateral ligament is intact. The biceps femoris t endon is intact.Popliteus muscle and tendon are intact. IMPRESSION: 1. There is a prominent area of signal abnormality in the proximal tibia extending beyond the field o f view of this study and suspicious for presence of acute or subacute bone infarct. Recommend furthe r MRI study of the tibia at to assess the full extent of this finding. Other consideration for whole body nuclear bone scan for determination of other areas of involvement. Primary differential consid erations would be for infection/osteomyelitis, although this is probably less likely. 2. No meniscal tears nor collateral ligament tears. No cruciate ligament tears. 3. Small focus of chondromalacia in the lateral patellar facet, not associated with edema in the post erior patella at this level nor formed osteochondral defect. However, the trochlear notch is somewha t shallow and there is mild patellar tilt evident, probably associated with element of tracking abnor mality/lateral patellar instability. 4. Quadriceps and patellar tendons appear unremarkable. DATA REPOSITORY:
--- NOTE | 2023-06-06 20:11 | DI.VRAD_ITS ---
PROCEDURE INFORMATION: Exam: MR Left Lower Extremity Joint Without Contrast, Knee Exam date and time: 06/06/2023 9:13 AM Age: 42 years old Clinical indication: Pain; Knee; Left; Additional info: Pain, internal derangement lt knee TECHNIQUE: Imaging protocol: Magnetic resonance imaging of the left lower extremity joint without contrast. Exam focused on the knee. COMPARISON: CR XR KNEE LT 4V AP,LAT,FERNANDO,PAT 04/19/2023 1:33 PM FINDINGS: Bones/joints: There are changes of chronic grade 4 chondromalacia along the lateral patellar facet centrally. Articular surfaces of the tibiofemoral compartments are well-maintained. Minimal joint effusion. No synovitis. There is extensive marrow signal abnormality in the visualized proximal tibial metaphysis and proximal diaphysis, with T1 hypointensity and T2 hyperintensity with ill-defined peripheral margin. Central elements of T1 hyperintensity which demonstrates suppression on the fat-suppressed T2, suggesting central sparing. The features are most consistent with an evolving acute or subacute phase bone infarct. It is incompletely visualized, consider MRI of the tibia/fibula for full demonstration, or bone scan if other sites of involvement are suspected elsewhere. Marrow neoplasm considered unlikely given the central sparing seen distally. The configuration is not typical of enchondroma. Infection/osteomyelitis could potentially produce this appearance. Fracture or stress fracture distal to the field of view with proximal tracking of reactive changes would be another consideration. Medial meniscus: The medial meniscus is intact. Lateral meniscus: The lateral meniscus is intact with partial discoid configuration. Anterior cruciate ligament: ACL is intact. Posterior cruciate ligament: PCL is intact. Medial capsule and supporting structures: MCL is intact. Pes anserinus complex is intact. Semimembranosus tendon and insertion are intact. Lateral capsule and supporting structures: Iliotibial band is intact. Fibular collateral ligament is intact. Biceps femoris and conjoined tendon are intact. Popliteus tendon is intact. Extensor mechanism of knee: Quadriceps tendon is intact. Patellar tendon is intact. Patellar tendon to patellar ratio of 1.3 is consistent with mild patella [place], anatomic variant. Shallow trochlear notch with mild lateral patellar tilt and steep medial facet. The anatomic configuration predisposes to lateral patellar instability although there is not significant subluxation with current positioning. Soft tissues: See Bones/joints finding. IMPRESSION: 1. Incompletely visualized marrow signal abnormality in the proximal tibia felt to be most consistent with acute or subacute bone infarct. Consider MRI of the tibia to assess full extent if clinically indicated, or bone scan to evaluate for other areas of involvement if suspected clinically. Primary differential considerations would be infection/osteomyelitis or possibly a stress fracture distal to the scan range with proximal extension of reactive changes, although these are considered less likely. 2. Patella [place] with shallow trochlear notch and mild patellar tilt without shift, predisposing to tracking abnormality/lateral patellar instability. There is a small zone of chronic grade 4 chondromalacia in the lateral patellar facet. Dictated and Authenticated by: Cosme Cook MD. Ordering:KAREY Monahan MD
== END 2023-06-06 02:28 ==
LOC: DI 02:08
PROVIDERS: PCP Internal Medicine; Visit Provider Student in an Organized Health Care Education/Training Program
DX: M25.562 Pain in left knee (principal); M23.8X2 Other internal derangements of left knee; M71.22 Synovial cyst of popliteal space [Baker], left knee; M22.42 Chondromalacia patellae, left knee; M25.862 Other specified joint disorders, left knee
CPT/HCPCS: 73721

== ENCOUNTER 2023-06-08 14:59 | Outpatient (CLI) | payer MEDICARE, MEDICAID, SELFPAY ==
[2023-06-08 14:51] LABS: Abs Immature Grans 0.03 10^3/uL (0.0-0.06); Absolute Basophil Count 0.03 10^3/uL (0.0-0.2); Absolute Eosinophil Count 0.05 10^3/uL (0.0-0.7); Absolute Monocyte Count 0.35 10^3/uL (0.1-0.8); Absolute Neutrophil Count 3.12 10^3/uL (1.2-6.7); Basophils % 0.6; Eosinophils % 1.1; HCT 39.6 % (40.0-50.0); HGB 13.7 g/dL (13.5-17.5); Immature Grans % 0.6; Lymphocytes % 23.5; MCH 34.6 pg (27.0-33.0); MCHC 34.6 % (32.0-36.0); MCV 100 fL (80-95); MPV 9.7 fL (8.0-11.0); Monocytes % 7.5; Neutrophils % 66.7; Platelet Count 142 10^3/uL (130-400); RBC 3.96 10^6/uL (4.36-5.78); RDW-SD 44.3 fL; WBC 4.68 10^3/uL (4.4-10.8)
[2023-06-08 15:17] LABS: INR 1.1 (0.9-1.1); Prothrombin Time 10.7 sec (9.3-11.0)
[2023-06-08 15:23] LABS: ALT 56 U/L (16-63); AST 43 U/L (15-37); Albumin 4.2 g/dL (3.4-5.0); Alkaline Phosphatase 134 U/L (46-116); BUN 11 mg/dL (7-18); Bilirubin, Total 0.9 mg/dL (0.2-1.0); CREATININE 1.4 mg/dL (0.70-1.30); Calcium 9.5 mg/dL (8.5-10.1); Chloride 101 mmol/L (98-107); Estimated GFR 63.96 (mL/min/1.73m2); Glucose 96 mg/dL (74-106); Potassium 3.6 mmol/L (3.5-5.1); Sodium 138 mmol/L (136-145); Total Protein 7.9 g/dL (6.4-8.2)
== END 2023-06-08 15:00 | disposition home or self-care (01) ==
LOC: LBO 15:00
PROVIDERS: PCP Internal Medicine; Visit Provider Internal Medicine
DX: K70.31 Alcoholic cirrhosis of liver with ascites (principal)
CPT/HCPCS: 36415; 80053; 85025; 85610

== ENCOUNTER → 2023-06-27 11:28 | Outpatient (BNVA) | payer MEDICARE, MEDICAID, SELFPAY | PROVIDERS: PCP Internal Medicine; Referring Provider Internal Medicine; Visit Provider Student in an Organized Health Care Education/Training Program | DX: M22.42 Chondromalacia patellae, left knee (principal) | CPT/HCPCS: 20610; 99214; J1030 ==

== ENCOUNTER → 2023-07-11 01:58 | Outpatient (CLI) | payer MEDICARE, MEDICAID, SELFPAY ==
--- NOTE | 2023-07-11 08:15 | DI.MRI_ITS ---
Exam(s) MR LOWER EXTREMITY LT WO CLINICAL HISTORY: f/u bone infarction on prev mri, m87.00. TECHNIQUE: Multiplanar multisequence MRI was performed. CONTRAST MATERIAL: Noncontrast COMPARISON: MRI of the knee 06 June 2023. Plain films April 17 FINDINGS: The prior MRI showed high T2 signal within the marrow of the proximal tibia, not fully included on th e exam. The current exam includes the entire tibia and fibula.. In the proximal tibial metadiaphysis, there are serpiginous areas of decreased T1 and high T2 signal within the marrow. Measures approximately 8 cm in length by 3 cm in diameter. There is no associat ed expansion. There is no significant edema extending outside the lesion. The cortex appears intact . The findings do not appear to have changed from the prior exam, and likely represent a stable bone infarct. Enchondroma could also be considered however no abnormalities are seen on the plain films. IMPRESSION: . Stable appearance of lesion in the proximal tibial meta metadiaphysis, likely bone infarct. DATA REPOSITORY:
== END ==
PROVIDERS: PCP Internal Medicine; Visit Provider Student in an Organized Health Care Education/Training Program
DX: M87.0 Idiopathic aseptic necrosis of bone (principal); M87.062 Idiopathic aseptic necrosis of left tibia
CPT/HCPCS: 73718

== ENCOUNTER → 2023-07-18 08:53 | Outpatient (BNVA) | payer MEDICARE, MEDICAID, SELFPAY | PROVIDERS: PCP Internal Medicine; Referring Provider Internal Medicine; Visit Provider Student in an Organized Health Care Education/Training Program | DX: M22.42 Chondromalacia patellae, left knee (principal); M87.062 Idiopathic aseptic necrosis of left tibia | CPT/HCPCS: 99213 ==

== ENCOUNTER 2023-09-18 23:17 | Emergency (ER) | payer MEDICARE, MEDICAID, SELFPAY ==
[2023-09-18] VITALS (8 sets, daily range): BP systolic 104–136; BP diastolic 78–99; PULSE 94–107; RESP 18; TEMP 36.4; O2SAT 94–98
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
--- NOTE | 2023-09-18 23:30 | ED.GENADUL_ITS ---
Discharge Plan Disposition Patient Disposition: Home Discharge Details Chief Complaint: Trauma Clinical Impression: ETOH abuse, Contusion, Fall Primary Care Provider: Sally De Leon ED Provider: Anthony Raygoza Home Meds and New Rx's Prescriptions: No Action prazosin 2 mg capsule 2 mg PO HS Patient Comments: TAKE 1 CAPSULE BY MOUTH AT BEDTIME thiamine mononitrate (vit B1) 100 mg tablet 100 mg PO DAILY Qty: 30 0RF furosemide [Lasix] 40 mg Tablet 60 mg DAILY spironolactone 25 mg Tablet 50 mg PO DAILY pantoprazole 40 mg Tablet,Delayed Release (Dr/Ec) 40 mg PO DAILY folic acid 1 mg Tablet 1 mg PO DAILY vitamin B6-vitamin E-magnesium Tablet 1 tab PO DAILY mecobalamin (vitamin B12) [B12 Active] 1,000 mcg Tablet,Chewable 500 mcg PO DAILY Patient Comments: Uses the capsules now 02/01/2023 CT trazodone 100 mg tablet 150 mg PO QHS hydroxyzine pamoate 50 mg capsule 1 cap PO QID Patient Comments: TAKE 1 CAPSULE BY MOUTH EVERY 4 HOURS NEEDED. NOT TO EXCEED 02/16 gabapentin 800 mg Tablet 800 mg PO TID sertraline 25 mg tablet 3 tab PO DAILY Patient Comments: TAKE 3 TABLETS BY MOUTH DAILY Discharge Instructions Instructions: Contusion in Adults (ED) Additional Instructions: At this time your CAT scan shows no evidence of bleed or fracture. Please continue to apply ice to the area. It would be best to avoid drinking alcohol. If you notice any worsening of your symptoms, or any new symptoms such as vomiting, diarrhea, fever, chills, shortness of breath, chest pain, numbness, weakness, or fainting , please return immediately to the emergency department for reevaluation. Please follow up with your primary care provider as soon as possible for reassessment and reevaluation. As always, it was a pleasure participating in your medical care today. Referrals: Sally De Leon DO [Primary Care Provider] - Medical Decision Making This is a pleasant 42-year-old male with past medical history of alcohol intoxication, hepatitis, multiple previous falls while being drunk, presents today for evaluation of left scalp hematoma. Patient and significant other at bedside, patient states that about 30 minutes ago he was intoxicated and he fell and hit his head on a sewing table. He also hit the back of his neck. He denies any chest pain extremity pain or abdominal pain. He denies any vomiting or diarrhea. He did have a few drinks this evening. He is not on any blood thinners. No seizures. No other complaints at this time. Exam demonstrates evidence of a hematoma on the left parietal scalp. No other signs of trauma. He does have minimal C2 and 3 midline C-spine tenderness. Will place in c-collar. Despite being slightly intoxicated he demonstrates a normal neurologic assessment with no focal deficits. We will get a CT scan blood work gently rehydrate monitor closely and reassess. We will check his PT and INR to evaluate for coagulopathy secondary to his alcohol use. 12:[address] scan shows no evidence of acute process per virtual radiology of the cervical spine or brain. No bleed. On reassessment patient feels well. Patient feels much better and would like to go home. Repeat neurologic assessment demonstrates no focal neurologic deficits. Patient stable for discharge. I have extensively reviewed the treatment plan and discharge instructions with the patient and their family. I have addressed all patient concerns at this time. The patient and family was made aware of what symptoms to monitor for that would warrant a return to the emergency department. Discussed the plan with the patient and family, they demonstrate verbal understanding and agreement with our assessment and plan at this time. The documentation in this chart was dictated using [employer] dictation software. Please excuse any dictation errors. FINDINGS: Brain: Mild volume loss No hemorrhage. Unremarkable white matter. No mass effect. Cerebral ventricles: No ventriculomegaly. Paranasal sinuses: A polyp/retention cyst is noted in the right maxillary sinus.No fluid levels. Mastoid air cells: Visualized mastoid air cells are well aerated. Bones/joints: Unremarkable. No acute fracture. Soft tissues: Unremarkable FINDINGS: Bones/joints: No acute fracture. Loss of cervical lordosis is presumably on a degenerative basis. Mild central canal stenosis and severe left foraminal stenosis at C5-C6 Lungs: Lung apices are normal. Soft tissues: Unremarkable. IMPRESSION: No acute findings. Thank you for allowing us to participate in the care of your patient. Dictated and Authenticated by: Nate Nava MD 09/19/2023 12:03 AM Eastern Time ([place] & [place]) HPI General Date/Time Provider Initiated Documentation: 09/18/23 23:25 . HPI Narrative: This is a pleasant 42-year-old male with past medical history of alcohol intoxication, hepatitis, multiple previous falls while being drunk, presents today for evaluation of left scalp hematoma. Patient and significant other at bedside, patient states that about 30 minutes ago he was intoxicated and he fell and hit his head on a sewing table. He also hit the back of his neck. He denies any chest pain extremity pain or abdominal pain. He denies any vomiting or diarrhea. He did have a few drinks this evening. He is not on any blood thinners. No seizures. No other complaints at this time. Related Data Home Medications Medication Instructions Recorded Confirmed folic acid 1 mg tablet 1 mg PO DAILY 08/22/22 09/18/23 furosemide 40 mg tablet (Lasix) 60 mg DAILY 08/22/22 07/18/23 mecobalamin (vitamin B12) 1,000 500 mcg PO DAILY 08/22/22 09/18/23 mcg chewable tablet (B12 Active) pantoprazole 40 mg tablet,delayed 40 mg PO DAILY 08/22/22 09/18/23 release spironolactone 25 mg tablet 50 mg PO DAILY 08/22/22 09/18/23 vitamin B6-vitamin E-magnesium 1 tab PO DAILY 08/22/22 09/18/23 tablet gabapentin 800 mg tablet 800 mg PO TID 09/24/22 09/18/23 hydroxyzine pamoate 50 mg capsule 1 cap PO QID 09/24/22 09/18/23 sertraline 25 mg tablet 3 tab PO DAILY 09/24/22 09/18/23 prazosin 2 mg capsule 2 mg PO HS 04/29/23 09/18/23 thiamine mononitrate (vit B1) 100 100 mg PO DAILY #30 tabs 05/01/23 09/18/23 mg tablet trazodone 100 mg tablet 150 mg PO QHS 07/18/23 09/18/23 Previous Rx's Medication Instructions Recorded thiamine mononitrate (vit B1) 100 100 mg PO DAILY #30 tabs 05/01/23 mg tablet Allergies Allergy/AdvReac Type Severity Reaction Status Date / Time No Known Allergies Allergy Unverified 09/18/23 23:37 General Stated Complaint: Trauma DERICK: 2 Review of Systems All systems reviewed & are unremarkable except as noted in HPI and below PFSH All Active Problems (Updated 09/19/23 @ 00:37 by Anthony Raygoza DO) Fall (Acute) Contusion (Acute) ETOH abuse (Chronic) 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) Internal derangement of left knee (Acute ~04/18/23) Hypomagnesemia (Acute) Hypokalemia (Acute) Macrocytic anemia (Acute) Suicidal ideation (Acute) Alcohol abuse with intoxication (Acute) Depression (Chronic) Alcohol withdrawal (Acute) Anemia (Chronic) Bilateral lower extremity edema (Acute) Cirrhosis of liver (Chronic) Medical History Tobacco abuse Alcohol abuse Suicide attempt Pancreatitis GERD (gastroesophageal reflux disease) Cirrhosis of liver Surgical History S/P abdominal paracentesis S/P hernia repair Family History Mother Heart disease Stroke Diabetes Hypertension Maternal Grandfather Diabetes Hypertension Maternal Grandmother Hypertension Social History Smoking/Tobacco Use Status: Current every day Tobacco Type: cigarettes Smoking packs per day: 2 Smoking cigarettes per day: 40.0 Counseling given: provider counseling and support medications Smoking risk assessment performed?: Yes Alcohol Intake: current Alcohol Intake frequency: 3 or more drinks per day Alcohol type: hard liquor Drug use: Occasionally Substance use type: marijuana Current gender identity: male Do you feel safe at home: Yes Do you feel safe in your relationship?: Yes Additional Social history: lives with mom and sister, sister in room. Exam Narrative Exam Narrative: 1.Const: Well-nourished, Well-developed, appearing stated age 2.Eyes: PERRL, no conjunctival injection, and symmetrical lids. 3.ENT: Atraumatic external nose and ears. Moist MM. Neck: Symmetric, trachea midline, No thyromegaly. There is no evidence of raccoon eyes, anne sign, CSF rhinorrhea, mastoid tenderness, cranial crepitus, hemotympanum, exophthalmos, or hyphema. Patient demonstrates intact dentition with no signs of tooth avulsion or fracture, no signs of jaw deformity, no evidence of a LeFort's fracture, with an intact palate, nose and orbital region. There is no evidence of a nasal septal hematoma. No proptosis. Jaw closes symmetrically. Airway is clear. There is a notable hematoma over the left parietal scalp. No bony depression. 4.CVS: +S1/S2, No murmurs or gallops. Peripheral pulses 2+ and equal in all extremities. Brisk capillary refill in all extremities. 5.RESP: Unlabored respiratory effort. Clear to auscultation bilaterally. No wheezes rales or rhonchi 6.GI: Soft, Nontender/Nondistended, No hepatosplenomegaly. No guarding or rebound. 7.MSK: Normocephalic/Atraumatic, Extremities w/o deformity or ttp No cyanosis or clubbing, Normal movement of all extremities No midline tenderness to palpation over the TLS spine. Minimal midline tenderness over C2 and C3. Patient has +5 out of 5 strength in the lower extremities in dorsiflexion and plantarflexion, knee flexion and extension, hip flexion and extension. Normal strength for dorsiflexion and plantar flexion of the great toe bilaterally. There is +2 over 2 dorsalis pedis pulses bilaterally. There is normal sensation to the skin with light touch at the foot, knee, and hip. Normal saddle sensation. Good sensation over the deep sural nerve area bilaterally. Rectal exam demonstrates good rectal tone with excellent kam- rectal sensation. Reflexes are +2 over 4 in the patellar reflex bilaterally. +5 out of 5 strength in the medial, ulnar, radial nerve distribution bilaterally in the hands as well as intact light touch sensation to these dermatomes on the hands 8.Skin: Warm, Dry. No rashes or lesions. 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 Sensation grossly intact, no focal neurologic deficits. All 6 cardinal planes of vision are fully intact. No evidence of rotatory or vertical nystagmus. The patient demonstrated a normal hwavka-wkry-ntoiza, good dexterity. There was no evidence of dysdiadochokinesia. Patient was able to ambulate without difficulty. There was no wide-based gait. Romberg testing was normal. Vktu-hr-xuep testing was normal. Sensation was intact bilaterally as well as muscle strength bilaterally for all extremities. Patient was able to verbalize butter cup with no slurring, or miss pronunciation. 10.Psych: (AAO) x3. Mildly intoxicated but otherwise appropriate Course Vital Signs Vital signs: Vital Signs Temperature 36.4 C 09/18/23 23:20 Pulse 106 H 09/18/23 23:20 Respiratory Rate 18 09/18/23 23:20 Blood Pressure 136/99 H 09/18/23 23:20 Pulse Oximetry 98 09/18/23 23:20 Temperature 36.4 C 09/18/23 23:20 Pulse 106 H 09/18/23 23:20 Respiratory Rate 18 09/18/23 23:20 Respiratory Effort Normal 09/18/23 23:24 Respiratory Depth Normal 09/18/23 23:24 Blood Pressure 136/99 H 09/18/23 23:20 Pulse Oximetry 98 09/18/23 23:20 Pain Level 10 09/18/23 23:20 PAWSS Have you Been Recently Intoxicated or Drunk Within the Last 30 days?: Yes Have you Ever Experienced Previous Episodes of Alcohol Withdrawal?: No Have you ever Experienced Withdrawal Seizures?: Yes Have you ever Experienced Delirium Tremens(DT)s?: Yes Have you ever undergone Alcohol Rehabilitation Treatment (i.e, inpt ot outpatient treatment programs)?: Yes Have you ever Experienced Blackouts?: No Have you ever Combined Alcohol with other Downers within the last 90 days?: Yes Have you ever Combined Alcohol with any other Substance of Abuse during the last 90 days?: No Positive Blood Alcohol level on Presentation? [PCS.BAL]: Unable to Obtain Evidence of Increased Autonomic Activity (i.e. HR>120, tremor, sweating, agitation, nausea)?: No Result: 4
[2023-09-18] MEDS: Normal Saline 500 ML IV (23:35)
[2023-09-18 23:43] LABS: Abs Immature Grans 0.05 10^3/uL (0.0-0.06); Absolute Basophil Count 0.08 10^3/uL (0.0-0.2); Absolute Eosinophil Count 0.11 10^3/uL (0.0-0.7); Absolute Monocyte Count 0.99 10^3/uL (0.1-0.8); Absolute Neutrophil Count 3.22 10^3/uL (1.2-6.7); Basophils % 1.1; Eosinophils % 1.5; HGB 16.1 g/dL (13.5-17.5); Immature Grans % 0.7; Lymphocytes % 40.3; MCH 34.6 pg (27.0-33.0); MCHC 34.3 % (32.0-36.0); MCV 101 fL (80-95); MPV 9.1 fL (8.0-11.0); Monocytes % 13.3; Neutrophils % 43.1; Platelet Count 268 10^3/uL (130-400); RBC 4.65 10^6/uL (4.36-5.78); RDW 12.5 % (11.8-14.1); RDW-SD 46.5 fL; WBC 7.45 10^3/uL (4.4-10.8)
[2023-09-18 23:57] LABS: PTT Activated 36.1 sec (23.6-32.8); Prothrombin Time 10.2 sec (9.1-11.1)
[2023-09-18 23:59] LABS: ALT 61 U/L (16-63); AST 40 U/L (15-37); Albumin 4.3 g/dL (3.4-5.0); Alkaline Phosphatase 119 U/L (46-116); Anion Gap 9.6 mmol/L (3-11); BUN 9 mg/dL (7-18); Bilirubin, Total 0.4 mg/dL (0.2-1.0); CO2 26.4 mmol/L (21.0-32.0); CREATININE 1.4 mg/dL (0.70-1.30); Calcium 9.2 mg/dL (8.5-10.1); Chloride 101 mmol/L (98-107); ETHANOL BLOOD 272.8 mg/dL (<10); Estimated GFR 63.96 (mL/min/1.73m2); Glucose 100 mg/dL (74-106); Potassium 3.5 mmol/L (3.5-5.1); Sodium 137 mmol/L (136-145); Total Protein 8.6 g/dL (6.4-8.2)
[2023-09-19] VITALS (7 sets, daily range): BP systolic 109–115; BP diastolic 72–78; PULSE 97–103; O2SAT 93–96
--- NOTE | 2023-09-19 00:04 | DI.VRAD_ITS ---
PROCEDURE INFORMATION: Exam: CT Head Without Contrast Exam date and time: 09/18/2023 11:46 PM Age: 42 years old Clinical indication: Injury or trauma; Blunt trauma (contusions or hematomas); Consciousness not specified; Injury date: 09/18/23; Injury details: +etoh, fall hit left scalp, R/O bleed TECHNIQUE: Imaging protocol: Computed tomography of the head without contrast. Radiation optimization: All CT scans at this facility use at least one of these dose optimization techniques: automated exposure control; mA and/or kV adjustment per patient size (includes targeted exams where dose is matched to clinical indication); or iterative reconstruction. COMPARISON: CT HEAD CERVICAL SPINE WO 04/15/2023 1:53 AM FINDINGS: Brain: Mild volume loss No hemorrhage. Unremarkable white matter. No mass effect. Cerebral ventricles: No ventriculomegaly. Paranasal sinuses: A polyp/retention cyst is noted in the right maxillary sinus.No fluid levels. Mastoid air cells: Visualized mastoid air cells are well aerated. Bones/joints: Unremarkable. No acute fracture. Soft tissues: Unremarkable. IMPRESSION: No acute intracranial hemorrhage PROCEDURE INFORMATION: Exam: CT Cervical Spine Without Contrast Exam date and time: 09/18/2023 11:46 PM Age: 42 years old Clinical indication: Injury or trauma; Blunt trauma (contusions or hematomas); Consciousness not specified; Injury date: 09/18/23; Injury details: +etoh, fall hit left scalp, R/O bleed TECHNIQUE: Imaging protocol: Computed tomography of the cervical spine without contrast. Radiation optimization: All CT scans at this facility use at least one of these dose optimization techniques: automated exposure control; mA and/or kV adjustment per patient size (includes targeted exams where dose is matched to clinical indication); or iterative reconstruction. COMPARISON: CT HEAD CERVICAL SPINE WO 04/15/2023 1:53 AM FINDINGS: Bones/joints: No acute fracture. Loss of cervical lordosis is presumably on a degenerative basis. Mild central canal stenosis and severe left foraminal stenosis at C5-C6 Lungs: Lung apices are normal. Soft tissues: Unremarkable. IMPRESSION: No acute findings. Dictated and Authenticated by: Nate Nava MD. Ordering:EDOUARD Cruz MD
== END 2023-09-19 00:44 | disposition home or self-care (01) ==
PROVIDERS: Emergency Provider Student in an Organized Health Care Education/Training Program; PCP Internal Medicine
DX: S00.03XA Contusion of scalp, initial encounter (principal); F10.120 Alcohol abuse with intoxication, uncomplicated; Z79.899 Other long term (current) drug therapy; Y90.8 Blood alcohol level of 240 mg/100 ml or more; W22.03XA Walked into furniture, initial encounter; Y93.89 Activity, other specified; Y92.018 Other place in single-family (private) house as the place of occurrence of the external cause; Y99.9 Unspecified external cause status
CPT/HCPCS: 80053; 96361; 96365; 99284; 70450; 72125; 80320; 85025; 85610; 85730

== ENCOUNTER → 2023-09-19 08:56 | Outpatient (BNVA) | payer MEDICARE, MEDICAID, SELFPAY | PROVIDERS: PCP Internal Medicine; Referring Provider Internal Medicine; Visit Provider Student in an Organized Health Care Education/Training Program | DX: M22.42 Chondromalacia patellae, left knee | CPT/HCPCS: 99213 ==

== ENCOUNTER 2023-09-27 15:14 | Outpatient (CLI) | payer MEDICARE, MEDICAID, SELFPAY ==
[2023-09-27 15:37] LABS: HCT 41.8 % (40.0-50.0); HGB 14.3 g/dL (13.5-17.5); MCHC 34.2 % (32.0-36.0); MCV 102 fL (80-95); MPV 10.1 fL (8.0-11.0); Platelet Count 152 10^3/uL (130-400); RBC 4.09 10^6/uL (4.36-5.78); RDW 12.6 % (11.8-14.1); RDW-SD 47.3 fL; WBC 5.69 10^3/uL (4.4-10.8)
[2023-09-27 15:59] LABS: INR 1.1 (0.9-1.1); Prothrombin Time 10.7 sec (9.1-11.1)
[2023-09-27 16:17] LABS: ALT 66 U/L (16-63); AST 45 U/L (15-37); Albumin 4.3 g/dL (3.4-5.0); Alkaline Phosphatase 108 U/L (46-116); Anion Gap 12.1 mmol/L (3-11); BUN 11 mg/dL (7-18); Bilirubin, Total 0.7 mg/dL (0.2-1.0); CO2 26.9 mmol/L (21.0-32.0); CREATININE 1.4 mg/dL (0.70-1.30); Calcium 9.6 mg/dL (8.5-10.1); Chloride 101 mmol/L (98-107); Estimated GFR 63.96 (mL/min/1.73m2); Glucose 136 mg/dL (74-106); Magnesium 1.8 mg/dL (1.8-2.4); Sodium 140 mmol/L (136-145); Total Protein 7.6 g/dL (6.4-8.2)
== END 2023-09-27 15:15 | disposition home or self-care (01) ==
PROVIDERS: Internal Medicine; PCP Internal Medicine; Visit Provider Internal Medicine
DX: E83.42 Hypomagnesemia (principal); E87.6 Hypokalemia; K70.31 Alcoholic cirrhosis of liver with ascites
CPT/HCPCS: 36415; 80048; 80053; 85027; 83735; 85610

== ENCOUNTER 2023-12-05 15:11 | Outpatient (CLI) | payer MEDICARE, SELFPAY ==
[2023-12-05 14:07] LABS: Abs Immature Grans 0.01 10^3/uL (0.0-0.06); Absolute Basophil Count 0.02 10^3/uL (0.0-0.2); Absolute Eosinophil Count 0.11 10^3/uL (0.0-0.7); Absolute Lymphocyte Count 1.21 10^3/uL (1.2-3.4); Absolute Monocyte Count 0.46 10^3/uL (0.1-0.8); Basophils % 0.4; HCT 42.8 % (40.0-50.0); HGB 14.7 g/dL (13.5-17.5); Immature Grans % 0.2; MCH 34.9 pg (27.0-33.0); MCHC 34.3 % (32.0-36.0); MCV 102 fL (80-95); Monocytes % 8.3; Neutrophils % 67.1; Platelet Count 140 10^3/uL (130-400); RBC 4.21 10^6/uL (4.36-5.78); RDW 12.1 % (11.8-14.1); RDW-SD 45.1 fL; WBC 5.51 10^3/uL (4.4-10.8)
[2023-12-05 14:32] LABS: INR 1.1 (0.9-1.1); PTT Activated 34.3 sec (23.6-32.8)
[2023-12-05 15:20] LABS: ALT 95 U/L (16-63); AST 78 U/L (15-37); Albumin 4.1 g/dL (3.4-5.0); Alkaline Phosphatase 97 U/L (46-116); Anion Gap 6.7 mmol/L (3-11); BUN 11 mg/dL (7-18); Bilirubin, Total 1.3 mg/dL (0.2-1.0); CO2 31.3 mmol/L (21.0-32.0); CREATININE 1.3 mg/dL (0.70-1.30); Calcium 9.1 mg/dL (8.5-10.1); Chloride 99 mmol/L (98-107); Glucose 102 mg/dL (74-106); Potassium 3.3 mmol/L (3.5-5.1); Sodium 137 mmol/L (136-145); Total Protein 7.9 g/dL (6.4-8.2)
== END 2023-12-05 15:12 | disposition home or self-care (01) ==
LOC: LBO 15:12
PROVIDERS: PCP Internal Medicine; Visit Provider Transplant Surgery
DX: K40.91 Unilateral inguinal hernia, without obstruction or gangrene, recurrent (principal)
CPT/HCPCS: 36415; 80053; 85025; 85610; 85730

== ENCOUNTER 2024-04-08 09:50 | Inpatient (IN) | payer MEDICARE, SELFPAY ==
[2024-04-08] VITALS (60 sets, daily range): BP systolic 99–190; BP diastolic 59–131; PULSE 97–135; RESP 13–28; TEMP 36.5–37.3; O2SAT 92–99
--- NOTE | 2024-04-08 10:00 | RT.EKG_ITS ---
APPROVED REPORT Exam: Resting ECG Reason for Exam: eval QT Patient Location: E HR:110 bpm ECG Measurements Heart Rate 110 AXIS LA 149 P 51 QRSd 100 QRS 6 QT 339 T 26 QTc 460 Conclusion Sinus tachycardia...rate> 99 Aberrant complex...small R-R variation, aberrant QRS sinus tachycardia, normal axis, nonrmal interals, non sichemic
--- NOTE | 2024-04-08 10:21 | W.ED.GENAD ---
Discharge Plan Disposition Patient Disposition: Admit to [facility] Condition: Serious Discharge Details Clinical Impression: Alcohol withdrawal, Alcoholic cirrhosis of liver, Hypokalemia, Hypomagnesemia, Right middle lobe pulmonary infiltrate Admit Date/Time: 04/08/24 13:55 Admit Provider: Luther Ramires Attending Provider: Luther Ramires Primary Care Provider: Sally De Leno ED Provider: Keyana Orlando General Mode of arrival: wheelchair. Date/Time Provider Initiated Documentation: 04/08/24 10:08. Limitations to Documentation: no limitations. Information obtained by: patient, RN notes reviewed and old records reviewed. HPI Narrative: 43-year-old male presents to the ER with a chief complaint of nausea vomiting for the last 4 to 5 days reports that he is been attempting to stop drinking. He attempted to drink this morning and vomited afterwards. He did drink last night. Does have a past medical history of liver cirrhosis. He is diaphoretic upon arrival, tremulous. He is tachycardic and hypertensive. Does have a distended abdomen. Was unable to take any of his normally prescribed medications this morning. Denies any blood in his stool. CIWA initially approximately 25. Related Data Home Medications Medication Instructions Recorded Confirmed folic acid 1 mg tablet 1 mg PO DAILY 08/22/22 04/08/24 furosemide 40 mg tablet (Lasix) 40 mg PO DAILY 08/22/22 04/08/24 mecobalamin (vitamin B12) 1,000 500 mcg PO DAILY 08/22/22 04/08/24 mcg chewable tablet (B12 Active) pantoprazole 40 mg tablet,delayed 40 mg PO DAILY 08/22/22 04/08/24 release spironolactone 25 mg tablet 50 mg PO DAILY 08/22/22 04/08/24 vitamin B6-vitamin E-magnesium 1 tab PO DAILY 08/22/22 04/08/24 tablet gabapentin 800 mg tablet 800 mg PO TID 09/24/22 04/08/24 hydroxyzine pamoate 50 mg capsule 1 cap PO QID 09/24/22 04/08/24 prazosin 2 mg capsule 2 mg PO HS 04/29/23 04/08/24 thiamine mononitrate (vit B1) 100 100 mg PO DAILY #30 tabs 05/01/23 04/08/24 mg tablet trazodone 100 mg tablet 150 mg PO QHS 07/18/23 04/08/24 olanzapine 5 mg tablet 5 mg PO DAILY 03/24/24 04/08/24 sertraline 25 mg tablet 100 mg PO DAILY 03/24/24 04/08/24 Previous Rx's Medication Instructions Recorded thiamine mononitrate (vit B1) 100 100 mg PO DAILY #30 tabs 05/01/23 mg tablet Allergies Allergy/AdvReac Type Severity Reaction Status Date / Time No Known Allergies Allergy Unverified 04/08/24 09:55 General Stated Complaint: ETOHWithdr DERICK: 2 Review of Systems All systems reviewed & are unremarkable except as noted in HPI and below Constitutional Constitutional: Reports as per HPI, Reports excessive sweating and Reports poor appetite Gastrointestinal Gastrointestinal: Reports nausea and Reports vomiting Musculoskeletal Musculoskeletal: Reports tingling Neurologic Neurologic: Reports as per HPI, Reports tingling and Reports tremor(s) Endocrine Endocrine: Reports excessive sweating Exam Narrative Exam Narrative: Constitutional: Alert and oriented x3. Appears stated age. Normal body habitus. Patient is diaphoretic, appears anxious, does have visible tremors noted at rest. Head: Normocephalic, no trauma. Eyes: Pupils PERRL, Red reflex noted, EOM's intact. Eyelids symmetrical without lesions, discharge, or swelling. ENT: Bilateral TM's WNL, External ear normal to inspection, no mastoid TTP, swelling, or erythema, Nasal turbinates WNL, no nasal discharge. Normal dentition, Posterior pharynx WNL, no exudate. Chest: RRR, Normal S1, S2, distal pulses intact. Resp: Lungs clear to auscultation bilaterally, no wheezes, rales, or rhonchi. Abdomen: Soft, non-distended, Normoactive bowel sounds all 4 quads. Musculoskeletal: Normal gait, Moves all 4 extremities without difficulty. Skin: No suspicious rashes or lesions. Capillary refill less than 2 sec. Neurologic: Cranial nerves II-XII intact. Alert and oriented x 3. Motor: No deficits noted. Sensory: Intact bilaterally all 4 extremities. CIWA approximately 25, Hematologic/Lymphatic: No ecchymosis, no lymphadenopathy. Course Vital Signs Vital signs: Vital Signs Temperature 36.8 C 04/08/24 09:57 Pulse 135 H 04/08/24 09:57 Respiratory Rate 20 04/08/24 09:57 Blood Pressure 190/131 H 04/08/24 09:57 Pulse Oximetry 97 04/08/24 09:57 Temperature 36.8 C 04/08/24 09:57 Temperature Source Oral 04/08/24 09:57 Pulse 135 H 04/08/24 09:57 Respiratory Rate 20 04/08/24 09:57 Respiratory Effort Normal, Non-Labored, Short of Breath 04/08/24 10:06 Blood Pressure 190/131 H 04/08/24 09:57 Blood Pressure Position Sitting 04/08/24 09:57 Pulse Oximetry 97 04/08/24 09:57 Oxygen Delivery Method Room Air 04/08/24 09:57 Oxygen Flow Rate 0 04/08/24 09:57 Pain Level 10 04/08/24 09:57 Medical Decision Making 43-year-old male presents to the ER with a chief complaint of nausea vomiting for the last 4 to 5 days reports that he is been attempting to stop drinking. He attempted to drink this morning and vomited afterwards. He did drink last night. Does have a past medical history of liver cirrhosis. He is diaphoretic upon arrival, tremulous. He is tachycardic and hypertensive. Does have a distended abdomen. Was unable to take any of his normally prescribed medications this morning. Denies any blood in his stool. CIWA initially approximately 25. Extensive alcohol withdrawal benzo protocol ordered. CBC shows hemoglobin 13.2 hematocrit 36.3, INR 1.2, sodium 130 potassium 3.0, chloride 88 BUN 16 creatinine 1.5, phosphorus less than 2.0 magnesium is low at 1.3 bilirubin 4.8, AST 76 ALT 106, ammonia within normal limits 27, initial troponin less than 50 lipase is slightly elevated at 78. Ethyl alcohol less than 3.0. 1139: Informed by temporary staff accountant that patient CIWA scores of 9 has not received any lorazepam as of yet. 1 mg IV Ativan ordered. CT abdomen pelvis ordered to evaluate liver. On patient reevaluation he reports he still feels not well, he still does have some tremors, liter of normal saline ordered, he is continues to be slightly hypertensive and tachycardic however blood pressure has come down some. Heart rate is 113 blood pressure 140/96 he is still slightly diaphoretic. Hospitalist paged for alcohol withdrawal. 1350: Spoke with Dr. Ramires attending is on for hospitalist he agrees to accept patient for admission to ICU for alcohol withdrawal. He recommends phenobarbital loading dose which was placed, lactate which was ordered and potassium replenishment 10 mill equivalents IV piggyback ordered. Will inform patient and family on plan of care. CT results noted and chest x-ray ordered to evaluate right lower lobe infiltrate. Patient to be admitted to ICU for alcohol withdrawal. Vital signs improved prior to transfer to floor. Patient requesting some nausea medication and additional 4 mg Zofran ordered. This text was generated using [employer] system, please disregard any oddities of phrase or misspellings. Medical Records Medical records reviewed: Yes I reviewed the patient's medical records. Lab Data Lab results reviewed: Yes I reviewed the patient's lab results. Labs: Laboratory Tests Range/Units 04/08/24 04/08/24 04/08/24 10:20 10:20 10:45 WBC (4.4-10.8) 10^3/uL 10.67 RBC (4.36-5.78) 10^6/uL 3.75 L Hgb (13.5-17.5) g/dL 13.2 L Hct (40.0-50.0) % 36.3 L MCV (80-95) fL 97 H MCH (27.0-33.0) pg 35.2 H MCHC (32.0-36.0) % 36.4 H RDW (11.8-14.1) % 11.9 Plt Count (130-400) 10^3/uL 159 MPV (8.0-11.0) fL 10.1 Immature Gran % % 0.4 Neutrophils % % 88.4 Lymphocytes % % 5.9 Monocytes % % 4.9 Eosinophils % % 0.0 Basophils % % 0.4 Nucleated RBC % (0.0-0.3) % 0.0 Absolute Neutrophils (1.2-6.7) 10^3/uL 9.44 H Absolute Lymphocytes (1.2-3.4) 10^3/uL 0.63 L Absolute Monocytes (0.1-0.8) 10^3/uL 0.52 Absolute Eosinophils (0.0-0.7) 10^3/uL 0.00 Absolute Basophils (0.0-0.2) 10^3/uL 0.04 PT (9.1-11.1) sec 11.6 H INR (0.9-1.1) 1.2 H APTT (23.6-32.8) sec 32.8 Sodium (136-145) mmol/L 130 L Potassium (3.5-5.1) mmol/L 3.0 L Chloride (98-107) mmol/L 88 L Carbon Dioxide (21.0-32.0) mmol/L 20.9 L Anion Gap (3-11) mmol/L 21.1 H BUN (7-18) mg/dL 16 Creatinine (0.70-1.30) mg/dL 1.5 H Est GFR (CKD-EPI 2020) (mL/min/1.73m2) 58.51 Glucose (74-106) mg/dL 152 H Calcium (8.5-10.1) mg/dL 9.1 Phosphorus (2.6-4.7) mg/dL < 2.0 L Cancelled Magnesium (1.8-2.4) mg/dL 1.3 L Total Bilirubin (0.2-1.0) mg/dL 4.8 H AST (15-37) U/L 76 H ALT (16-63) U/L 106 H Alkaline Phosphatase (46-116) U/L 97 Ammonia (11-32) umol/L 27 Troponin I (< or =60) ng/L < 50 Total Protein (6.4-8.2) g/dL 8.2 Albumin (3.4-5.0) g/dL 4.1 Lipase (16-77) U/L 78 H Salicylates (<2.8) mg/dL < 2.8 Acetaminophen (10-30) ug/mL < 2 Ethyl Alcohol (<10) mg/dL < 3.0 Quality:[facility] Health Related Social Needs: No Data to Display PFSH All Active Problems (Updated 04/08/24 @ 15:13 by Keyana Orlando NP) Right middle lobe pulmonary infiltrate (Acute) Alcoholic cirrhosis of liver (Acute) Alcohol withdrawal (Acute) 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) Internal derangement of left knee (Acute ~04/18/23) Hypomagnesemia (Acute) Hypokalemia (Acute) Macrocytic anemia (Acute) Suicidal ideation (Acute) Alcohol abuse with intoxication (Acute) Depression (Chronic) Alcohol withdrawal (Acute) Anemia (Chronic) Bilateral lower extremity edema (Acute) Cirrhosis of liver (Chronic) Medical History Tobacco abuse Alcohol abuse Suicide attempt Pancreatitis GERD (gastroesophageal reflux disease) Cirrhosis of liver Surgical History S/P abdominal paracentesis S/P hernia repair Family History Mother Heart disease Stroke Diabetes Hypertension Maternal Grandfather Diabetes Hypertension Maternal Grandmother Hypertension Social History Smoking/Tobacco Use Status: Current every day Tobacco Type: cigarettes Smoking packs per day: 2 Smoking cigarettes per day: 40.0 Counseling given: provider counseling and support medications Smoking risk assessment performed?: Yes Alcohol Intake: current Alcohol Intake frequency: 3 or more drinks per day Alcohol type: hard liquor Drug use: Never Substance use type: marijuana Housing: house Current gender identity: male Do you feel safe at home: Yes Do you feel safe in your relationship?: Yes Additional Social history: lives with mom and sister, sister in room. PAWSS Have you Been Recently Intoxicated or Drunk Within the Last 30 days?: Yes Have you Ever Experienced Previous Episodes of Alcohol Withdrawal?: Yes Have you ever Experienced Withdrawal Seizures?: Yes Have you ever Experienced Delirium Tremens(DT)s?: Yes Have you ever undergone Alcohol Rehabilitation Treatment (i.e, inpt ot outpatient treatment programs)?: Yes Have you ever Experienced Blackouts?: Yes Have you ever Combined Alcohol with other Downers within the last 90 days?: Yes Have you ever Combined Alcohol with any other Substance of Abuse during the last 90 days?: Yes Positive Blood Alcohol level on Presentation? [PCS.BAL]: Yes Evidence of Increased Autonomic Activity (i.e. HR>120, tremor, sweating, agitation, nausea)?: Yes Result: 10
[2024-04-08 10:30] LABS: Abs Immature Grans 0.04 10^3/uL (0.0-0.06); Absolute Basophil Count 0.04 10^3/uL (0.0-0.2); Absolute Lymphocyte Count 0.63 10^3/uL (1.2-3.4); Absolute Monocyte Count 0.52 10^3/uL (0.1-0.8); Absolute Neutrophil Count 9.44 10^3/uL (1.2-6.7); Basophils % 0.4 %; HCT 36.3 % (40.0-50.0); HGB 13.2 g/dL (13.5-17.5); Immature Grans % 0.4 %; Lymphocytes % 5.9 %; MCH 35.2 pg (27.0-33.0); MCHC 36.4 % (32.0-36.0); MCV 97 fL (80-95); MPV 10.1 fL (8.0-11.0); Monocytes % 4.9 %; Neutrophils % 88.4 %; Platelet Count 159 10^3/uL (130-400); RBC 3.75 10^6/uL (4.36-5.78); RDW 11.9 % (11.8-14.1); WBC 10.67 10^3/uL (4.4-10.8)
[2024-04-08 10:41] LABS: Ammonia 27 umol/L (11-32)
[2024-04-08 10:43] LABS: INR 1.2 (0.9-1.1); PTT Activated 32.8 sec (23.6-32.8); Prothrombin Time 11.6 sec (9.1-11.1)
[2024-04-08 10:45] LABS: ALT 106 U/L (16-63); AST 76 U/L (15-37); Albumin 4.1 g/dL (3.4-5.0); Alkaline Phosphatase 97 U/L (46-116); Anion Gap 21.1 mmol/L (3-11); BUN 16 mg/dL (7-18); Bilirubin, Total 4.8 mg/dL (0.2-1.0); CO2 20.9 mmol/L (21.0-32.0); CREATININE 1.5 mg/dL (0.70-1.30); Calcium 9.1 mg/dL (8.5-10.1); Chloride 88 mmol/L (98-107); Estimated GFR 58.51 (mL/min/1.73m2); Glucose 152 mg/dL (74-106); Lipase 78 U/L (16-77); Magnesium 1.3 mg/dL (1.8-2.4); Sodium 130 mmol/L (136-145); Total Protein 8.2 g/dL (6.4-8.2); Troponin I < 50 ng/L (< or =60)
--- NOTE | 2024-04-08 10:45 | DI.CT_ITS ---
Exam(s) CT ABDOMEN PELVIS W EXAM: CT ABDOMEN PELVIS W CLINICAL HISTORY: Nausea, Vomiting, hx of cirrhosis. TECHNIQUE: Imaging Protocol: Axial computed tomography images with coronal and sagittal reformatted images were created and reviewed CONTRAST MATERIAL: Intravenous: Omnipaque-350 100cc Oral: None COMPARISON: CT CT ABDOMEN PELVIS W from 12/08/2022 FINDINGS: VISUALIZED LUNG BASES: There is new infiltrate in the right middle lobe seen on the uppermost images of this abdominal study. There are no pleural effusions.. ABDOMEN: There is no ascites. Recanalized umbilical vein noted as well as small varices at the GE junction le kaylah. Spleen size normal. LIVER: Liver is hypodense implying steatosis. There no discrete focal hepatic lesions identified. N o dilated intrahepatic ducts. GALLBLADDER/BILIARY: No obvious gallbladder pathology. CBD is not dilated. PANCREAS: No evidence of pancreatic mass nor dilatation of the pancreatic duct. SPLEEN: Spleen is not enlarged. No obvious intrasplenic lesions. Splenic and portal veins are paten t. Diameter of the splenic vein is 0.7 cm. ADRENALS: There are no significant adrenal masses. KIDNEYS:No cysts evident. No solid renal masses. No calculi nor hydronephrosis.. ABDOMINAL AORTA: Abdominal aorta is not enlarged. LYMPH NODES:There is no retroperitoneal nor paraaortic adenopathy. ABDOMINAL WALL: No evidence of significant anterior abdominal wall nor inguinal hernia. Recanalized umbilical vein noted. GI: There is no evidence of bowel obstruction, free air, nor abscess. PELVIS: GI: No evidence of appendicitis.No evidence of sigmoid diverticulitis. LYMPH NODES: There is no intrapelvic nor inguinal adenopathy. REPRODUCTIVE: Prostate size normal. Seminal vesicles unremarkable. URINARY BLADDER: No calculi nor obvious masses evident OSSEOUS: No fractures and no significant osseous lesions. IMPRESSION: 1. Uppermost images of this abdominal study reveal significant infiltrate the right middle lobe. The re are no pleural effusions. Recommend two view chest x-ray or chest CT scan. 2. There is a recanalized umbilical vein, small GE level varices, and slightly enlarged and steatotic liver. No splenomegaly. Suspect portal hypertension. 3. No ascites. Called by myself to ER provider. RADIATION DOSE DELIVERED: 1,285.99mGy.cm Total DLP DATA REPOSITORY: All CT scans at this facility are submitted to the National Radiology Data Registry (NRDR) Dose Index Registry (DIR) with the [employer] (ACR). RADIATION OPTIMIZATION: All CT scans at this facility use at least one of these dose optimization te chniques: automated exposure control; mA and/or kV adjustment per patient size (includes targeted exa ms where dose is matched to clinical indication); or iterative reconstruction.
[2024-04-08 10:47] LABS: ETHANOL BLOOD < 3.0 mg/dL (<10); PHOSPHORUS < 2.0 mg/dL (2.6-4.7)
[2024-04-08] MEDS: Ondansetron 4 MG/2 ML VIAL IVP ×2 (11:05→15:44)
[2024-04-08] MEDS: MULTIVITAMIN 10 ML, THIAMINE 100 MG, FOLIC ACID 1 MG in DEXTROSE 5%-0.45% SALINE 1,000 ML 100 ML IV (11:05)
[2024-04-08] MEDS: MAGNESIUM SULFATE 1 GM/100 ML BAG IVINF (11:18)
[2024-04-08 11:22] LABS: Acetaminophen < 2 ug/mL (10-30); Salicylate < 2.8 mg/dL (<2.8)
[2024-04-08] MEDS: LORazepam 2 MG/ML VIAL 1 MG IVP (11:44)
[2024-04-08] MEDS: Normal Saline - Diluent 50 ML VIAL IJ (12:29)
[2024-04-08] MEDS: Omnipaque 350 MG/ML 500 ML BTL-Imaging package 100 ML IJ (12:31)
--- NOTE | 2024-04-08 13:00 | DI.RAD_ITS ---
Exam(s) XR CHEST 2V PA LATERAL EXAM: XR CHEST 2V PA LATERAL CLINICAL HISTORY: Eval Right infiltrate. TECHNIQUE: 2D digital imaging was performed. COMPARISON: CR,XR XR PORTABLE CHEST AP from 12/08/2022 FINDINGS: 2 views: Heart size is normal. The mediastinum is not widened. Left lung is clear. There are mild increased markings in the right middle lobe medial segment. No p leural effusions. IMPRESSION: Increased markings right middle lobe. Suspicious for infiltrate. There are no pleural effusions. DATA REPOSITORY: RADIATION DOSE DELIVERED:
[2024-04-08] MEDS: Normal Saline 1,000 ML 1000 ML IV (13:34)
[2024-04-08 14:01] LABS: Troponin I < 50 ng/L (< or =60)
[2024-04-08] MEDS: POTASSIUM CHLORIDE 10 MEQ/100 ML BAG 100 MEQ IVINF (14:20)
[2024-04-08 14:42] LABS: Lactate 1.4 mmol/L (0.6-1.4)
--- NOTE | 2024-04-08 15:10 | W.PC.ACHO ---
Registration Status: ADM IN Primary Language: Preferred Language: ED Information & Data Chief Complaint ETOHWithdr 04/08/24 10:23 Triage Note pt with n/v for 4-5 days, 04/08/24 09:57 unable to take meds since yesterday, hx of cirrhosis with admission to [facility] 2 years ago with transfer to [facility] for possible liver transplant, pt jaundiced/tremors/flop diaphoresis, V/A/tactile hallucination, HTN to 190, tachy to 130, last drink this AM but emesis soon after, abd distended. Medical / Surgical History (Last Reviewed 04/08/24 @ 10:25 by Keyana Orlando NP) Tobacco abuse Alcohol abuse Suicide attempt Pancreatitis GERD (gastroesophageal reflux disease) Cirrhosis of liver (Last Reviewed 04/08/24 @ 10:25 by Keyana Orlando NP) S/P abdominal paracentesis S/P hernia repair Most Recent Vital Signs Temperature 36.8 C 04/08/24 09:57 Temperature Source Oral 04/08/24 09:57 Pulse 106 H 04/08/24 15:00 Pulse 115 H 04/08/24 15:01 Respiratory Rate 20 04/08/24 09:57 Respiratory Effort Normal, Non-Labored, Short of Breath 04/08/24 10:06 Respiratory Pattern Normal 04/08/24 10:28 Blood Pressure 130/88 04/08/24 15:00 Blood Pressure Mean 100 04/08/24 15:00 Blood Pressure Position Sitting 04/08/24 09:57 Pulse Oximetry 99 04/08/24 15:01 Oxygen Delivery Method Room Air 04/08/24 09:57 Oxygen Flow Rate 0 04/08/24 09:57 Pain Level 10 04/08/24 09:57 Allergies No Known Allergies Allergy (Unverified 04/08/24 09:55) Precautions Isolation Seizure precaution 04/08/24 10:06 Active Medications Generic Name Dose Route Start Last Admin Trade Name Freq PRN Reason Stop Dose Admin Multivitamins 10 ml/ Thiamine 1,011.2 mls @ 100 mls/hr 04/08/24 10:09 04/08/24 11:05 HCl 100 mg/ Folic Acid 1 mg/ IV 04/08/24 20:15 100 mls/hr Dextrose/Sodium Chloride DAILY STA Administration Iohexol 100 ml 04/08/24 12:30 04/08/24 12:31 Omnipaque 350 Mg/Ml 500 Ml Btl-Imaging Package IJ 05/08/24 23:59 100 ml DIRECTED OMI Administration Sodium Chloride 50 ml 04/08/24 12:30 04/08/24 12:29 Normal Saline - Diluent 50 Ml Vial IJ 50 ml .FOR DI USE OMI Administration IV IV Catheter Type [Left Wrist] Peripheral IV IV Catheter Type [Right Peripheral IV Forearm] IV Catheter Gauge [Left Wrist] 20 IV Catheter Gauge [Right 20 Forearm] Diagnostics 04/08/24 04/08/24 04/08/24 Range/Units 14:37 13:30 10:45 WBC (4.4-10.8) 10^3/uL RBC (4.36-5.78) 10^6/uL Hgb (13.5-17.5) g/dL Hct (40.0-50.0) % MCV (80-95) fL MCH (27.0-33.0) pg MCHC (32.0-36.0) % RDW (11.8-14.1) % Plt Count (130-400) 10^3/uL MPV (8.0-11.0) fL Immature Gran % % Neutrophils % % Lymphocytes % % Monocytes % % Eosinophils % % Basophils % % Nucleated RBC % (0.0-0.3) % Absolute Neutrophils (1.2-6.7) 10^3/uL Absolute Lymphocytes (1.2-3.4) 10^3/uL Absolute Monocytes (0.1-0.8) 10^3/uL Absolute Eosinophils (0.0-0.7) 10^3/uL Absolute Basophils (0.0-0.2) 10^3/uL PT (9.1-11.1) sec INR (0.9-1.1) APTT (23.6-32.8) sec VBG Lactate 1.4 (0.6-1.4) mmol/L Sodium (136-145) mmol/L Potassium (3.5-5.1) mmol/L Chloride (98-107) mmol/L Carbon Dioxide (21.0-32.0) mmol/L Anion Gap (3-11) mmol/L BUN (7-18) mg/dL Creatinine (0.70-1.30) mg/dL Est GFR (CKD-EPI 2020) (mL/min/1.73m2) Glucose (74-106) mg/dL Calcium (8.5-10.1) mg/dL Phosphorus (2.6-4.7) mg/dL Magnesium (1.8-2.4) mg/dL Total Bilirubin (0.2-1.0) mg/dL AST (15-37) U/L ALT (16-63) U/L Alkaline Phosphatase (46-116) U/L Ammonia (11-32) umol/L Troponin I < 50 (< or =60) ng/L Total Protein (6.4-8.2) g/dL Albumin (3.4-5.0) g/dL Lipase (16-77) U/L Salicylates < 2.8 (<2.8) mg/dL Acetaminophen < 2 (10-30) ug/mL Ethyl Alcohol (<10) mg/dL 04/08/24 04/08/24 Range/Units 10:20 10:20 WBC 10.67 (4.4-10.8) 10^3/uL RBC 3.75 L (4.36-5.78) 10^6/uL Hgb 13.2 L (13.5-17.5) g/dL Hct 36.3 L (40.0-50.0) % MCV 97 H (80-95) fL MCH 35.2 H (27.0-33.0) pg MCHC 36.4 H (32.0-36.0) % RDW 11.9 (11.8-14.1) % Plt Count 159 (130-400) 10^3/uL MPV 10.1 (8.0-11.0) fL Immature Gran % 0.4 % Neutrophils % 88.4 % Lymphocytes % 5.9 % Monocytes % 4.9 % Eosinophils % 0.0 % Basophils % 0.4 % Nucleated RBC % 0.0 (0.0-0.3) % Absolute Neutrophils 9.44 H (1.2-6.7) 10^3/uL Absolute Lymphocytes 0.63 L (1.2-3.4) 10^3/uL Absolute Monocytes 0.52 (0.1-0.8) 10^3/uL Absolute Eosinophils 0.00 (0.0-0.7) 10^3/uL Absolute Basophils 0.04 (0.0-0.2) 10^3/uL PT 11.6 H (9.1-11.1) sec INR 1.2 H (0.9-1.1) APTT 32.8 (23.6-32.8) sec VBG Lactate (0.6-1.4) mmol/L Sodium 130 L (136-145) mmol/L Potassium 3.0 L (3.5-5.1) mmol/L Chloride 88 L (98-107) mmol/L Carbon Dioxide 20.9 L (21.0-32.0) mmol/L Anion Gap 21.1 H (3-11) mmol/L BUN 16 (7-18) mg/dL Creatinine 1.5 H (0.70-1.30) mg/dL Est GFR (CKD-EPI 2020) 58.51 (mL/min/1.73m2) Glucose 152 H (74-106) mg/dL Calcium 9.1 (8.5-10.1) mg/dL Phosphorus Cancelled < 2.0 L (2.6-4.7) mg/dL Magnesium 1.3 L (1.8-2.4) mg/dL Total Bilirubin 4.8 H (0.2-1.0) mg/dL AST 76 H (15-37) U/L ALT 106 H (16-63) U/L Alkaline Phosphatase 97 (46-116) U/L Ammonia 27 (11-32) umol/L Troponin I < 50 (< or =60) ng/L Total Protein 8.2 (6.4-8.2) g/dL Albumin 4.1 (3.4-5.0) g/dL Lipase 78 H (16-77) U/L Salicylates (<2.8) mg/dL Acetaminophen (10-30) ug/mL Ethyl Alcohol < 3.0 (<10) mg/dL Intake and Output - 24 Hour Total 04/08/24 09:50 thru 04/08/24 14:47 Intake Total 4876.7045 Balance 1154.7028 Weight 108.862 kg Intake: IV 1152.5382 Other: # Bowel Movements 1 Falls Risk Assessment History of Falls Previous History 04/08/24 10:28 Contributing Factors Confusion,Medications 04/08/24 10:28 Ambulatory Aids Uses ambulatory device 04/08/24 10:28 Tubes/Lines W/no contributing factors 04/08/24 10:28 Gait Evaluation W/no contributing factors 04/08/24 10:28 Cognition No cognitive impairment 04/08/24 10:28 Fall Total Score 56 04/08/24 10:28 Level of Risk High Risk 04/08/24 10:28 Problems (Last Reviewed 04/08/24 @ 10:25 by Keyana Orlando NP) Alcoholic cirrhosis of liver (Acute) Alcohol withdrawal (Acute) Hypomagnesemia (Acute) Hypokalemia (Acute) v v v v v v v v v Sending and/or Receiving Nurses: Please use comment section below to note any information pertinent to the patient hand-off not included above. Information / Comments: Report received from: Flor An RN
[2024-04-08] MEDS: Gabapentin 800 MG TAB PO ×2 (17:07→20:14)
[2024-04-08] MEDS: hydrOXYzine PAMOATE 25 MG CAP PO ×2 (17:07→20:14)
[2024-04-08 17:26] LABS: Bilirubin Large (Negative); Blood Trace-lysed (Negative); Clarity Sl Cloudy (Clear); Glucose Negative (Negative); Ketones 80 mg/dL (Negative); Leukocyte Esterase Negative (Negative); Nitrite Positive (Negative)
[2024-04-08 17:32] LABS: Bacteria Negative HPF (Negative); C & S Indicated? No; Casts 0-2 Hyaline LPF (Negative); Crystals Negative HPF (Negative); Epithelial Cells Rare HPF (Negative); Mucus Trace (Negative); Other Cells Rare Renal (Negative); RBC 0-2 HPF (0-2); WBC 0-2 HPF (0-5)
[2024-04-08 17:37] LABS: *AMPHETAMINES SCREEN URINE Negative (Negative); *BARBITURATES SCREEN URINE Positive (Negative); *BENZODIAZEPINES SCREEN URINE Positive (Negative); Cannabinoids THC Positive (Negative); Cocaine Screen,Urine Negative (Negative); METHADONE URINE SCREEN Negative (Negative); OPIATES URINE SCREEN Negative (Negative)
[2024-04-08 17:38] LABS: Tricyclic Antidepressants Negative (Negative)
[2024-04-08] MEDS: PHENobarbital 130 MG/ML VIAL IVP (17:46)
--- NOTE | 2024-04-08 17:55 | HPE_ITS ---
Date of service: 04/08/24 Time of Service: 17:55 Assessment and Plan Assessment and plan (1) Alcohol withdrawal: Status: Acute Assessment and plan: continue loading of phenobarbital protocol begun in the ED. replace electrolytes, hydrate, monitor for worseing symptoms and may need further prn dosing of phenobarbital. 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 Critical care time spent interviewing and examining the patient, reviewing studies, discussing case with patient's nurse and consulting physicians was 60 minutes Qualifiers: Complication of substance-induced condition: uncomplicated Qualified Code(s): F10.930 - Alcohol use, unspecified with withdrawal, uncomplicated (2) Right middle lobe pulmonary infiltrate: Status: Acute Assessment and plan: CTR 2 gm iv daily, IS, acapella (3) Alcoholic cirrhosis of liver: Status: Acute Qualifiers: Ascites presence: without ascites Qualified Code(s): K70.30 - Alcoholic cirrhosis of liver without ascites (4) Depression: Status: Chronic Qualifiers: Depression Type: major depressive disorder Major depression recurrence: recurrent Active/Remission status: currently active Major depression episode severity: mild Qualified Code(s): F33.0 - Major depressive disorder, recurrent, mild (5) Hypokalemia: Status: Acute Assessment and plan: secondary to vomiting, poor oral intake, chronic alcohol consumption K 3.0 on admission and given 10 meq KCL IV but repeat K is only 2.6, will give more aggressive replacment; will give both po and iv and repeat labs later tonight, also needs more aggressive replacement of Mg; will give 4 gm over 4hr and begin on po replacement; recheck in the a.m. (6) Hypomagnesemia: Status: Acute Assessment and plan: as above (7) Esophageal varices: Status: Acute Assessment and plan: secondary to portal HTN, he was unaware of this dx; will put him on protonix for protection from any alcohol induced gastritis/esophagitis; when he is stable from his acute withdrawal he should be on nonselective BB for portal hypertension and referred to GI for EGD, and banding vs TIPS. Qualifiers: Esophageal varices type: secondary Esophageal varices bleeding: without bleeding Qualified Code(s): I85.10 - Secondary esophageal varices without bleeding History of Present Illness History of Present Illness Chief Complaint: Alcohol withdrawal Narrative: 43-year-old male with history of alcoholism usually drinks 2 of vodka per day decided to start cutting back on his drinking about 2 weeks ago when he got down to about three quarters of a pint per day when he started having nausea and vomiting and tremors about 3 days ago. He started increase his drinking yesterday but this morning when he tried to drink he could not keep anything down. He presented emergency department in acute alcohol withdrawal. He has known history of cirrhosis as well as previous episodes of pancreatitis as well as suicidal ideation although he is not currently suicidal. Evaluation in the emergency department included routine labs including urinalysis, toxicology screen, chemistry profile, CBC, coagulation studies. He also underwent CT scan of the abdomen and pelvis and chest x-ray. CT of the abdomen pelvis shows in the uppermost images of the abdominal study a right middle lobe infiltrate no pleural effusions he has gastroesophageal varices and a previously thrombosed umbilical vein that is recanalized. He has evidence of portal hypertension but no splenomegaly. He had no ascites. Follow-up chest x- ray confirmed an infiltrate in the right middle lobe. Patient denies any sputum production or fevers or rigors. However he says that he may have aspirated during one of his episodes of emesis. He denies any overt hematemesis or melena and was unaware that he had varices. CBC showed no leukocytosis white count was 10,600 he has a mild anemia hemoglobin 13.2 g with macrocytic changes and normal platelet count 159,000. Coagulation study shows elevated pro time of 11.6 seconds INR 1.2 with normal activated PTT of 32.8. Blood lactate was normal at 1.4 transaminases are elevated with an AST of 76, ALT 106 normal alkaline phosphatase 97 and elevated bilirubin 4.8. Troponin was normal x 2 sets and ammonia level was normal at 27. Lipase was mildly elevated 78. Treatment emergency department included IV fluids as well as potassium supplementation and magnesium supplementation for his low potassium of 3.0 and his low magnesium 1.3. He only received 1 g bolus of magnesium sulfate. We will give him further correction. He was only given 10 mill equivalents of potassium in the emergency department and again we will give him further supplementation. Per my recommendation was started on phenobarbital protocol again 10 mg/kg loading dose with the initial dose Thran 20 mg IV given in the emergency department. He will receive the remainder of his loading dose of 240 mg IV every 3 hours x 2 more doses along with as needed supplementation based on his RASS level. Patient is admitted to the intensive care unit for further management of his acute alcohol withdrawal and electrolyte disorder and dehydration. Review of Systems Constitutional Constitutional: Denies chills, Reports fatigue, Denies fever(s), Reports lethargy, Reports malaise and Reports poor appetite Eyes Eyes: Reports system reviewed and no additional complaints, except as documented ENT Ears, Nose, Mouth, and Throat: Reports system reviewed and no additional complaints, except as documented and Denies abnormal hearing Cardiovascular Cardiovascular: Reports system reviewed and no additional complaints, except as documented and Denies dyspnea Respiratory Respiratory: Reports cough, Denies hemoptysis and Denies dyspnea Gastrointestinal Gastrointestinal: Reports as per HPI, Denies abdominal pain, Denies melena, Reports loose stools, Reports nausea, Reports vomiting and Denies hematemesis Genitourinary Genitourinary: Reports system reviewed and no additional complaints, except as documented Musculoskeletal Musculoskeletal: Reports system reviewed and no additional complaints, except as documented Integumentary/Breasts Skin/Breast: Reports system reviewed and no additional complaints, except as documented Neurologic Neurologic: Denies abnormal hearing, Denies other visual disturbances and Reports tremor(s) Psychiatric Psychiatric: Denies auditory hallucinations, Denies visual hallucinations and Denies hallucinations Endocrine Endocrine: Reports fatigue Hematologic/Lymphatic Hematologic/Lymphatic: Reports system reviewed and no additional complaints, except as documented Allergic/Immunologic Allergic/Immunologic: Reports system reviewed and no additional complaints, except as documented PFSH All Active Problems (Updated 04/08/24 @ 19:30 by Luther Ramires MD) Esophageal varices (Acute) Right middle lobe pulmonary infiltrate (Acute) Alcoholic cirrhosis of liver (Acute) Alcohol withdrawal (Acute) 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) Internal derangement of left knee (Acute ~04/18/23) Hypomagnesemia (Acute) Hypokalemia (Acute) Macrocytic anemia (Acute) Suicidal ideation (Acute) Alcohol abuse with intoxication (Acute) Depression (Chronic) Alcohol withdrawal (Acute) Anemia (Chronic) Bilateral lower extremity edema (Acute) Cirrhosis of liver (Chronic) Medical History Tobacco abuse Alcohol abuse Suicide attempt Pancreatitis GERD (gastroesophageal reflux disease) Cirrhosis of liver Surgical History S/P abdominal paracentesis S/P hernia repair Family History Mother Heart disease Stroke Diabetes Hypertension Maternal Grandfather Diabetes Hypertension Maternal Grandmother Hypertension Social History Smoking/Tobacco Use Status: Current every day Tobacco Type: cigarettes Smoking packs per day: 2 Smoking cigarettes per day: 40.0 Counseling given: provider counseling and support medications Smoking risk assessment performed?: Yes Alcohol Intake: current Alcohol Intake frequency: 3 or more drinks per day Alcohol type: hard liquor Drug use: Never Substance use type: marijuana Housing: house Current gender identity: male Do you feel safe at home: Yes Do you feel safe in your relationship?: Yes Additional Social history: lives with mom and sister, sister in room. Meds Allergies and Home Medications Allergies Allergy/AdvReac Type Severity Reaction Status Date / Time No Known Allergies Allergy Unverified 04/08/24 09:55 Home Medications Medication Instructions Recorded Confirmed Type folic acid 1 mg tablet 1 mg PO DAILY 08/22/22 04/08/24 History furosemide 40 mg tablet (Lasix) 40 mg PO DAILY 08/22/22 04/08/24 History mecobalamin (vitamin B12) 1,000 500 mcg PO DAILY 08/22/22 04/08/24 History mcg chewable tablet (B12 Active) pantoprazole 40 mg tablet,delayed 40 mg PO DAILY 08/22/22 04/08/24 History release spironolactone 25 mg tablet 50 mg PO DAILY 08/22/22 04/08/24 History vitamin B6-vitamin E-magnesium 1 tab PO DAILY 08/22/22 04/08/24 History tablet gabapentin 800 mg tablet 800 mg PO TID 09/24/22 04/08/24 History hydroxyzine pamoate 50 mg capsule 1 cap PO QID 09/24/22 04/08/24 History prazosin 2 mg capsule 2 mg PO HS 04/29/23 04/08/24 History thiamine mononitrate (vit B1) 100 100 mg PO DAILY #30 tabs 05/01/23 04/08/24 Rx mg tablet trazodone 100 mg tablet 150 mg PO QHS 07/18/23 04/08/24 History olanzapine 5 mg tablet 5 mg PO DAILY 03/24/24 04/08/24 History sertraline 25 mg tablet 100 mg PO DAILY 03/24/24 04/08/24 History Exam Narrative Exam Narrative: Alert and oriented x4 HEENT: Atraumatic normocephalic, pupils equally round reactive to light and accommodation, extraocular motion intact, jaundice sclerae, nares moist and patent without exudate or bleeding, oropharynx noninjected without exudate, teeth poor repair, missing several teeth, multiple teeth w/ caries Neck: Supple, nontender, without thyromegaly or lymphadenopathy or JVD. Normal carotid pulses Lungs: Clear to auscultation and percussion Heart: Regular rhythm, tachycardic (rate per monitor around 110), without murmur rub or gallop. Normal apical impulse Abdomen: mild distension, normal bowel sounds, tender abdomen w/out rebound or involuntary guarding, I did not appreciate hepatosplenomegaly Extremities: Normal range of motion with normal strength. No peripheral cyanosis or edema. Normal pulses Neurologic: grossly normal CN, normal strength and sensation, he has visible tremors of his hands, no asterixis Results Labs 04/08/24 10:20 04/08/24 18:10 Labs: Laboratory Results - last 24 hr 04/08/24 04/08/24 04/08/24 10:20 10:20 10:45 WBC 10.67 RBC 3.75 L Hgb 13.2 L Hct 36.3 L MCV 97 H MCH 35.2 H MCHC 36.4 H RDW 11.9 Plt Count 159 MPV 10.1 Immature Gran % 0.4 Neutrophils % 88.4 Lymphocytes % 5.9 Monocytes % 4.9 Eosinophils % 0.0 Basophils % 0.4 Nucleated RBC % 0.0 Absolute Neutrophils 9.44 H Absolute Lymphocytes 0.63 L Absolute Monocytes 0.52 Absolute Eosinophils 0.00 Absolute Basophils 0.04 PT 11.6 H INR 1.2 H APTT 32.8 VBG Lactate Sodium 130 L Potassium 3.0 L Chloride 88 L Carbon Dioxide 20.9 L Anion Gap 21.1 H BUN 16 Creatinine 1.5 H Est GFR (CKD-EPI 2020) 58.51 Glucose 152 H Calcium 9.1 Phosphorus < 2.0 L Cancelled Magnesium 1.3 L Total Bilirubin 4.8 H AST 76 H ALT 106 H Alkaline Phosphatase 97 Ammonia 27 Troponin I < 50 Total Protein 8.2 Albumin 4.1 Lipase 78 H Urine Color Urine Clarity Urine pH Ur Specific [place] Urine Protein Urine Ketones Urine Blood Urine Nitrite Urine Bilirubin Urine Urobilinogen Ur Leukocyte Esterase Urine RBC Urine WBC Ur Epithelial Cells Urine Crystals Urine Bacteria Urine Casts Urine Mucus Urine Other Ur Culture Indicated? Urine Glucose Salicylates < 2.8 Urine Opiates Screen Urine Methadone Screen Acetaminophen < 2 Ur Barbiturates Screen Ur Tricyclics Screen Ur Amphetamines Screen U Benzodiazepines Scrn Urine Cocaine Screen Ur THC Screen Ethyl Alcohol < 3.0 04/08/24 04/08/24 04/08/24 13:30 14:37 17:18 WBC RBC Hgb Hct MCV MCH MCHC RDW Plt Count MPV Immature Gran % Neutrophils % Lymphocytes % Monocytes % Eosinophils % Basophils % Nucleated RBC % Absolute Neutrophils Absolute Lymphocytes Absolute Monocytes Absolute Eosinophils Absolute Basophils PT INR APTT VBG Lactate 1.4 Sodium Potassium Chloride Carbon Dioxide Anion Gap BUN Creatinine Est GFR (CKD-EPI 2020) Glucose Calcium Phosphorus Magnesium Total Bilirubin AST ALT Alkaline Phosphatase Ammonia Troponin I < 50 Total Protein Albumin Lipase Urine Color Dark Yellow Urine Clarity Sl Cloudy Urine pH 6.0 Ur Specific [place] 1.010 Urine Protein 100 H Urine Ketones 80 H Urine Blood Trace-lysed H Urine Nitrite Positive H Urine Bilirubin Large H Urine Urobilinogen 2.0 H Ur Leukocyte Esterase Negative Urine RBC 0-2 Urine WBC 0-2 Ur Epithelial Cells Rare Urine Crystals Negative Urine Bacteria Negative Urine Casts 0-2 Hyaline Urine Mucus Trace Urine Other Rare Renal Ur Culture Indicated? No Urine Glucose Negative Salicylates Urine Opiates Screen Negative Urine Methadone Screen Negative Acetaminophen Ur Barbiturates Screen Positive A Ur Tricyclics Screen Negative Ur Amphetamines Screen Negative U Benzodiazepines Scrn Positive A Urine Cocaine Screen Negative Ur THC Screen Positive A Ethyl Alcohol Last Vital Signs Temp 37.3 C 04/08/24 15:33 Pulse 103 H 04/08/24 15:33 Resp 28 H 04/08/24 15:33 BP 130/88 04/08/24 15:00 Pulse Ox 98 04/08/24 15:33 PAWSS Have you Been Recently Intoxicated or Drunk Within the Last 30 days?: Yes Have you Ever Experienced Previous Episodes of Alcohol Withdrawal?: Yes Have you ever Experienced Withdrawal Seizures?: Yes Have you ever Experienced Delirium Tremens(DT)s?: Yes Have you ever undergone Alcohol Rehabilitation Treatment (i.e, inpt ot outpatient treatment programs)?: Yes Have you ever Experienced Blackouts?: Yes Have you ever Combined Alcohol with other Downers within the last 90 days?: Yes Have you ever Combined Alcohol with any other Substance of Abuse during the last 90 days?: Yes Positive Blood Alcohol level on Presentation? [PCS.BAL]: Yes Evidence of Increased Autonomic Activity (i.e. HR>120, tremor, sweating, agitation, nausea)?: Yes Result: 10 Time Spent Time spent with Patient: 55-74 minutes Time was spent: preparing to see the patient(eg.review tests), obtaining and/or reviewing separately otained hiistory, ordering medications,tests, procedures, referring, communicating with other health director day care center, indepentently interpreting results, counseling the patient and care coordination
[2024-04-08 18:31] LABS: Anion Gap 13.1 mmol/L (3-11); BUN 17 mg/dL (7-18); CO2 25.9 mmol/L (21.0-32.0); CREATININE 1.3 mg/dL (0.70-1.30); Calcium 8.2 mg/dL (8.5-10.1); Chloride 93 mmol/L (98-107); Estimated GFR 69.47 (mL/min/1.73m2); Glucose 168 mg/dL (74-106); PHOSPHORUS < 2.0 mg/dL (2.6-4.7); Sodium 132 mmol/L (136-145)
[2024-04-08 18:34] LABS: Potassium 2.6 mmol/L (3.5-5.1)
[2024-04-08] MEDS: POTASSIUM CHLORIDE 20 MEQ/100 ML BAG 50 MEQ IVINF ×2 (18:40→20:40)
[2024-04-08] MEDS: MAGNESIUM SULFATE 4 GM/100 ML BAG IVINF (18:40)
[2024-04-08] MEDS: Normal Saline Flush 10 ML SYR IVP ×3 (18:49→20:06)
[2024-04-08] MEDS: cefTRIAXone 2 GM/50 ML BAG IVPB (18:50)
[2024-04-08] MEDS: Pantoprazole 40 MG VIAL IVP (20:05)
[2024-04-08] MEDS: Potassium Chloride Liquid 20 MEQ PKT 40 MEQ PO (20:06)
[2024-04-08] MEDS: traZODone 50 MG TAB 150 MG PO (20:13)
[2024-04-08] MEDS: Prazosin 1 MG CAP 2 MG PO (20:14)
[2024-04-08] MEDS: Magnesium Gluconate 500 MG TAB PO (20:21)
[2024-04-08] MEDS: POTASSIUM CHLORIDE/0.9% NACL 1,000 ML 150 MEQ IV (21:56)
[2024-04-08 23:12] LABS: Anion Gap 8.3 mmol/L (3-11); BUN 15 mg/dL (7-18); CO2 26.7 mmol/L (21.0-32.0); CREATININE 1.2 mg/dL (0.70-1.30); Chloride 97 mmol/L (98-107); Estimated GFR 76.48 (mL/min/1.73m2); Glucose 119 mg/dL (74-106); Potassium 3.3 mmol/L (3.5-5.1); Sodium 132 mmol/L (136-145)
[2024-04-09] VITALS (37 sets, daily range): BP systolic 94–135; BP diastolic 59–109; PULSE 82–121; RESP 13–28; TEMP 36.5–37.8; O2SAT 92–99
[2024-04-09] MEDS: PHENobarbital 130 MG/ML VIAL IVP ×3 (03:11→20:31)
[2024-04-09] MEDS: Normal Saline Flush 10 ML SYR IVP ×3 (03:12→20:07)
[2024-04-09 06:50] LABS: Abs Immature Grans 0.03 10^3/uL (0.0-0.06); Absolute Basophil Count 0.02 10^3/uL (0.0-0.2); Absolute Eosinophil Count 0.01 10^3/uL (0.0-0.7); Absolute Lymphocyte Count 0.55 10^3/uL (1.2-3.4); Absolute Monocyte Count 0.26 10^3/uL (0.1-0.8); Absolute Neutrophil Count 3.56 10^3/uL (1.2-6.7); Basophils % 0.5 %; Eosinophils % 0.2 %; HGB 9.9 g/dL (13.5-17.5); Immature Grans % 0.7 %; Lymphocytes % 12.4 %; MCH 35.1 pg (27.0-33.0); MCHC 34.1 % (32.0-36.0); MPV 10.4 fL (8.0-11.0); Monocytes % 5.9 %; Neutrophils % 80.3 %; Platelet Count 102 10^3/uL (130-400); RBC 2.82 10^6/uL (4.36-5.78); RDW 11.9 % (11.8-14.1); RDW-SD 45.1 fL; WBC 4.43 10^3/uL (4.4-10.8)
[2024-04-09 06:51] LABS: MCV 103 fL (80-95)
[2024-04-09 07:05] LABS: Magnesium 2.6 mg/dL (1.8-2.4)
[2024-04-09 07:13] LABS: ALT 77 U/L (16-63); AST 60 U/L (15-37); Albumin 3.2 g/dL (3.4-5.0); Alkaline Phosphatase 79 U/L (46-116); Anion Gap 9.4 mmol/L (3-11); BUN 13 mg/dL (7-18); CO2 26.6 mmol/L (21.0-32.0); CREATININE 1.1 mg/dL (0.70-1.30); Calcium 8.1 mg/dL (8.5-10.1); Chloride 100 mmol/L (98-107); Estimated GFR 84.89 (mL/min/1.73m2); Glucose 98 mg/dL (74-106); Potassium 3.1 mmol/L (3.5-5.1); Sodium 136 mmol/L (136-145); Total Protein 6.2 g/dL (6.4-8.2)
[2024-04-09] MEDS: OLANZapine 5 MG TAB PO (08:49)
[2024-04-09] MEDS: hydrOXYzine PAMOATE 25 MG CAP PO ×3 (08:49→17:02)
[2024-04-09] MEDS: Multivitamin TAB 1 TAB PO (08:50)
[2024-04-09] MEDS: Potassium Chloride Liquid 20 MEQ PKT PO ×3 (08:50→19:11)
[2024-04-09] MEDS: Folic Acid 1 MG TAB PO (08:50)
[2024-04-09] MEDS: Thiamine 100 MG TAB PO (08:51)
[2024-04-09] MEDS: Gabapentin 800 MG TAB PO ×3 (08:51→20:02)
[2024-04-09] MEDS: Cyanocobalamin 500 MCG TAB PO (08:51)
[2024-04-09] MEDS: Sertraline 100 MG TAB PO ×2 (08:51→13:15)
[2024-04-09] MEDS: Vitamins B Comp w/C TAB 1 TAB PO (08:51)
--- NOTE | 2024-04-09 10:14 | PDOC.CMIN ---
Date of service: 04/09/24 Time of Service: 10:14 Care Management Initial Assmt Initial Assessment REASON FOR HOSPITALIZATION:: Acute alcohol withdrawal, Alcoholic cirrhosis of liver PREVIOUS FUNCTIONAL STATUS/SOCIAL/FAMILY SUPPORTS:: Resides in [place] with his mother and sister, independent at baseline though struggles with DEVON. CURRENT FUNCTIONAL STATUS:: Remains in ICU in active withdrawal-treatment per phenobarbital protocol. On nicotine replacement, up independently. ADVANCE DIRECTIVES:: On file, Fay (Mother) as agent, Leanne (sister) as alternate. Has patient been provided with info about the portal/API?: No Did the patient sign up for the portal?: No CODE STATUS:: Full Code INSURANCE COVERAGE / FINANCIAL ISSUES:: AARP/[facility] MCR Replacement PRIMARY CARE PHYSICIAN:: Sally De Leon POTENTIAL DISCHARGE NEEDS:: Follow up appointments; DEVON resources review; motivational interview intervention. PATIENT/FAMILY EDUCATION NEEDS:: Review discharge instructions, discuss Ask Me Three. ANTICIPATED BARRIERS TO DISCHARGE:: None identified. TRANSPORTATION:: Via private vehicle with family. PLAN:: Mc will return home when ready per MD; CM to offer DEVON resources and coordination support. Mc will follow up with his PCP and have an outpatient referral to GI for cirrhosis, varices and portal HTN PFSH All Active Problems (Updated 04/09/24 @ 12:45 by Luther Ramires MD) Esophageal varices (Acute) Right middle lobe pulmonary infiltrate (Acute) Alcoholic cirrhosis of liver (Acute) Alcohol withdrawal (Acute) 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) Internal derangement of left knee (Acute ~04/18/23) Hypokalemia (Acute) Macrocytic anemia (Acute) Suicidal ideation (Acute) Alcohol abuse with intoxication (Acute) Depression (Chronic) Alcohol withdrawal (Acute) Anemia (Chronic) Bilateral lower extremity edema (Acute) Cirrhosis of liver (Chronic) Medical History Tobacco abuse Alcohol abuse Suicide attempt Pancreatitis GERD (gastroesophageal reflux disease) Cirrhosis of liver Surgical History S/P abdominal paracentesis S/P hernia repair Family History Mother Heart disease Stroke Diabetes Hypertension Maternal Grandfather Diabetes Hypertension Maternal Grandmother Hypertension Social History Smoking/Tobacco Use Status: Current every day Tobacco Type: cigarettes Smoking packs per day: 2 Smoking cigarettes per day: 40.0 Counseling given: provider counseling and support medications Smoking risk assessment performed?: Yes Alcohol Intake: current Alcohol Intake frequency: 3 or more drinks per day Alcohol type: hard liquor Drug use: Never Substance use type: marijuana Housing: house Current gender identity: male Do you feel safe at home: Yes Do you feel safe in your relationship?: Yes Additional Social history: lives with mom and sister, sister in room.
--- NOTE | 2024-04-09 10:57 | PGE_ITS ---
Date of Service Date of service: 04/09/24 Time of Service: 10:58 Assessment and Plan Assessment and plan (1) Alcohol withdrawal: Status: Acute Assessment and plan: phenobarbital cumulative dose this morning was at 1190 mg (calculated soft stop is 1200 mg (or 15 mg/kg IBW w/ his IBW being 80 kg), hard stop of 20 mg/kg is calculated at 1600 mg. His RASS score has been 0 to -1. CIWA 7 to 8. I think he is medically stable for transfer to medical floor. I will get phenobarbital level now to see where he is at and then if we need further doses we can go up to 1600 mg cumulative dose. He will need referral to reading coach at discharge and will need GI referral regarding his cirrhosis and his varices and portal HTN professional time reviewing labs, placing orders, examining patient, discussion of treatment w/ patient and family and documentation was over 45 minutes. Qualifiers: Complication of substance-induced condition: uncomplicated Qualified Code(s): F10.930 - Alcohol use, unspecified with withdrawal, uncomplicated (2) Right middle lobe pulmonary infiltrate: Status: Acute Assessment and plan: CTR 2 gm iv daily, IS, acapella; will treat empirically x 5 days; repeat CXR in 2 to 3 weeks. (3) Alcoholic cirrhosis of liver: Status: Acute Qualifiers: Ascites presence: without ascites Qualified Code(s): K70.30 - Alcoholic cirrhosis of liver without ascites (4) Depression: Status: Chronic Assessment and plan: patient admits to depression but denies any SI. he usually takes olanzapine and sertraline. I will adjust his dose of sertraline from 100 mg to 200 mg per day. Qualifiers: Depression Type: major depressive disorder Major depression recurrence: recurrent Active/Remission status: currently active Major depression episode severity: mild Qualified Code(s): F33.0 - Major depressive disorder, recurrent, mild (5) Hypokalemia: Status: Acute Assessment and plan: patient is still hypokalemic w/ K 3.1 and will get further oral replacement. continue to monitor (6) Hypomagnesemia: Status: Resolved Assessment and plan: Mg now at 2.3; I have put his oral dose on hold for now and will recheck in the a.m. (7) Esophageal varices: Status: Acute Assessment and plan: secondary to portal HTN, he was unaware of this dx; will put him on protonix for protection from any alcohol induced gastritis/esophagitis; when he is stable from his acute withdrawal he should be on nonselective BB for portal hypertension and referred to GI for EGD, and banding vs TIPS. Qualifiers: Esophageal varices type: secondary Esophageal varices bleeding: without bleeding Qualified Code(s): I85.10 - Secondary esophageal varices without bleeding Subjective Subjective Interval history since last seen: Patient still has some nausea after meals, no vomiting, no abdominal pains. He states he is depressed but denies SI. I explained to him and his family (sister and mother) that if he continues to drink that this will kill him. I also explained to him that he has evidence of portal hypertension and esophageal/gastric varices. Exam Narrative Exam Narrative: Mc is alert, quiet but answers questions appropriately, oriented Lungs: clear Heart: RRR Abdomen: obese, soft, nontender, no guarding, normal bowel sounds Extremities: no edema; minimal tremors Objective Last Vital Signs Temp 37.1 C 04/09/24 09:00 Pulse 91 H 04/09/24 10:01 Resp 20 04/09/24 10:01 BP 113/74 04/09/24 10:01 Pulse Ox 92 04/09/24 10:01 Laboratory Results - last 24 hr 04/08/24 04/08/24 04/08/24 10:45 13:30 14:37 WBC RBC Hgb Hct MCV MCH MCHC RDW Plt Count MPV Immature Gran % Neutrophils % Lymphocytes % Monocytes % Eosinophils % Basophils % Nucleated RBC % Absolute Neutrophils Absolute Lymphocytes Absolute Monocytes Absolute Eosinophils Absolute Basophils VBG Lactate 1.4 Sodium Potassium Chloride Carbon Dioxide Anion Gap BUN Creatinine Est GFR (CKD-EPI 2020) Glucose Calcium Phosphorus Magnesium Total Bilirubin AST ALT Alkaline Phosphatase Troponin I < 50 Total Protein Albumin Urine Color Urine Clarity Urine pH Ur Specific [place] Urine Protein Urine Ketones Urine Blood Urine Nitrite Urine Bilirubin Urine Urobilinogen Ur Leukocyte Esterase Urine RBC Urine WBC Ur Epithelial Cells Urine Crystals Urine Bacteria Urine Casts Urine Mucus Urine Other Ur Culture Indicated? Urine Glucose Salicylates < 2.8 Urine Opiates Screen Urine Methadone Screen Acetaminophen < 2 Ur Barbiturates Screen Ur Tricyclics Screen Ur Amphetamines Screen U Benzodiazepines Scrn Urine Cocaine Screen Ur THC Screen 04/08/24 04/08/24 04/08/24 17:18 18:10 22:50 WBC RBC Hgb Hct MCV MCH MCHC RDW Plt Count MPV Immature Gran % Neutrophils % Lymphocytes % Monocytes % Eosinophils % Basophils % Nucleated RBC % Absolute Neutrophils Absolute Lymphocytes Absolute Monocytes Absolute Eosinophils Absolute Basophils VBG Lactate Sodium 132 L 132 L Potassium 2.6 L* 3.3 L Chloride 93 L 97 L Carbon Dioxide 25.9 26.7 Anion Gap 13.1 H 8.3 BUN 17 15 Creatinine 1.3 1.2 Est GFR (CKD-EPI 2020) 69.47 76.48 Glucose 168 H 119 H Calcium 8.2 L 8.0 L Phosphorus < 2.0 L Magnesium Total Bilirubin AST ALT Alkaline Phosphatase Troponin I Total Protein Albumin Urine Color Dark Yellow Urine Clarity Sl Cloudy Urine pH 6.0 Ur Specific [place] 1.010 Urine Protein 100 H Urine Ketones 80 H Urine Blood Trace-lysed H Urine Nitrite Positive H Urine Bilirubin Large H Urine Urobilinogen 2.0 H Ur Leukocyte Esterase Negative Urine RBC 0-2 Urine WBC 0-2 Ur Epithelial Cells Rare Urine Crystals Negative Urine Bacteria Negative Urine Casts 0-2 Hyaline Urine Mucus Trace Urine Other Rare Renal Ur Culture Indicated? No Urine Glucose Negative Salicylates Urine Opiates Screen Negative Urine Methadone Screen Negative Acetaminophen Ur Barbiturates Screen Positive A Ur Tricyclics Screen Negative Ur Amphetamines Screen Negative U Benzodiazepines Scrn Positive A Urine Cocaine Screen Negative Ur THC Screen Positive A 04/09/24 06:05 WBC 4.43 RBC 2.82 L Hgb 9.9 L D Hct 29.0 L MCV 103 H D MCH 35.1 H MCHC 34.1 D RDW 11.9 Plt Count 102 L MPV 10.4 Immature Gran % 0.7 Neutrophils % 80.3 Lymphocytes % 12.4 Monocytes % 5.9 Eosinophils % 0.2 Basophils % 0.5 Nucleated RBC % 0.0 Absolute Neutrophils 3.56 Absolute Lymphocytes 0.55 L Absolute Monocytes 0.26 Absolute Eosinophils 0.01 Absolute Basophils 0.02 VBG Lactate Sodium 136 Potassium 3.1 L Chloride 100 Carbon Dioxide 26.6 Anion Gap 9.4 BUN 13 Creatinine 1.1 Est GFR (CKD-EPI 2020) 84.89 Glucose 98 Calcium 8.1 L Phosphorus Magnesium 2.6 H Total Bilirubin 2.0 H AST 60 H ALT 77 H Alkaline Phosphatase 79 Troponin I Total Protein 6.2 L Albumin 3.2 L Urine Color Urine Clarity Urine pH Ur Specific [place] Urine Protein Urine Ketones Urine Blood Urine Nitrite Urine Bilirubin Urine Urobilinogen Ur Leukocyte Esterase Urine RBC Urine WBC Ur Epithelial Cells Urine Crystals Urine Bacteria Urine Casts Urine Mucus Urine Other Ur Culture Indicated? Urine Glucose Salicylates Urine Opiates Screen Urine Methadone Screen Acetaminophen Ur Barbiturates Screen Ur Tricyclics Screen Ur Amphetamines Screen U Benzodiazepines Scrn Urine Cocaine Screen Ur THC Screen PAWSS Have you Been Recently Intoxicated or Drunk Within the Last 30 days?: Yes Have you Ever Experienced Previous Episodes of Alcohol Withdrawal?: Yes Have you ever Experienced Withdrawal Seizures?: Yes Have you ever Experienced Delirium Tremens(DT)s?: Yes Have you ever undergone Alcohol Rehabilitation Treatment (i.e, inpt ot outpatien t treatment programs)?: Yes Have you ever Experienced Blackouts?: Yes Have you ever Combined Alcohol with other Downers within the last 90 days?: Yes Have you ever Combined Alcohol with any other Substance of Abuse during the last 90 days?: Yes Positive Blood Alcohol level on Presentation? [PCS.BAL]: Yes Evidence of Increased Autonomic Activity (i.e. HR>120, tremor, sweating, agitation, nausea)?: Yes Result: 10 Time Spent with Patient Time Spent with Patient: 35-49 minutes Time was spent: preparing to see the patient(eg.review tests), ordering medications,tests, procedures, referring, communicating with other health animal care provider, indepentently interpreting results, counseling the patient and care coordination
--- NOTE | 2024-04-09 12:03 | PHA.REVIEW2 ---
Pharmacy Admission Review Admission Clinical Review Admission Pharmacy Review: (Updated 04/08/24 @ 19:30 by Luther Ramires MD) Esophageal varices (Acute) Right middle lobe pulmonary infiltrate (Acute) Alcoholic cirrhosis of liver (Acute) Alcohol withdrawal (Acute) Hypomagnesemia (Acute) Hypokalemia (Acute) No Known Allergies Allergy (Unverified 04/08/24 09:55) Resuscitation Status Full Code Height 6 ft 1 in Weight 107 kg Comments Comments/Follow Ups: Per morning meeting, patient will be switched to [place] Pharmacy Admission Review Renal Dosing Renal Dosing: BUN 13 mg/dL (7-18) 04/09/24 06:05 Creatinine 1.1 mg/dL (0.70-1.30) 04/09/24 06:05 Medications needing adjustments: Reviewed (CrCl 109.9 mL/min) List of meds needing interventions: Current medications are okay Anticoagulation Anticoagulation: Hgb 9.9 g/dL (13.5-17.5) L D 04/09/24 06:05 Hct 29.0 % (40.0-50.0) L 04/09/24 06:05 Plt Count 102 10^3/uL (130-400) L 04/09/24 06:05 INR 1.2 (0.9-1.1) H 04/08/24 10:20 Creatinine 1.1 mg/dL (0.70-1.30) 04/09/24 06:05 DVT Prophylaxis: Reviewed (SCDs) Relevant Labs Relevant Labs: Sodium 136 mmol/L (136-145) 04/09/24 06:05 Potassium 3.1 mmol/L (3.5-5.1) L 04/09/24 06:05 Chloride 100 mmol/L (98-107) 04/09/24 06:05 Phosphorus < 2.0 mg/dL (2.6-4.7) L 04/08/24 18:10 Magnesium 2.6 mg/dL (1.8-2.4) H 04/09/24 06:05 Electrolytes, C-Reactive P, ESR: Reviewed (K 3.1 - has order for 20 mEq TID packets, Mg 2.6, hgb decreased from 13.2 to 9.9, AST/ALT 60/77) Cardiac Review Cardiac Review: Troponin I < 50 ng/L (< or =60) 04/08/24 13:30 BP, HR, EF%: Reviewed (BP WNL, HR 91) QTc Review QTc: Reviewed (460 from 04/08) IV to PO Switch IV Medications: Reviewed (ceftriaxone, pantoprazole, phenobarbital) Home Meds Home Med List reviewed: Intervened Relevent Home Meds Not ordered & why?: Spironolactone Called nursing to verify if patient takes risperidone and what dose of olanzapine he takes. Per patient he does not take risperidone anymore and does not know what dose. Most recently filled olanzapine 10mg tablets on 03/20/24. Reached out to provider Takes hydroxyzine as needed at home, updated order to PRN not OMI. Current Meds Current Medication Order Review: Intervened Comments: Phenobarbital for alcohol withdrawal CIWA 7 at 1024 today Soft Stop: 1198.5mg Hard Stop: 1598mg Loading doses: 320mg + 240mg + 240mg PRN doses: 130mg x 3 (last dose given 0859 this morning) Total: 1190mg Provider aware that patient has reached soft stop Pharmacy Antibiotic Review Pharmacy Antibiotic Activity: Reviewed, no change Comments: Patient is on ceftriaxone day 1. No cultures Comments Comments/Follow Ups: Per morning meeting, patient will be switched to [place]
[2024-04-09] MEDS: Acetaminophen 325 MG TAB PO (17:02)
[2024-04-09] MEDS: cefTRIAXone 2 GM/50 ML BAG IVPB (18:07)
[2024-04-09] MEDS: Pantoprazole 40 MG VIAL IVP (19:11)
[2024-04-09] MEDS: Prazosin 1 MG CAP 2 MG PO (20:02)
[2024-04-09] MEDS: traZODone 50 MG TAB 150 MG PO (20:02)
[2024-04-09 22:35] LABS: PHENOBARBITAL 15.2 ug/mL (15.0-40.0)
[2024-04-10] VITALS (20 sets, daily range): BP systolic 95–122; BP diastolic 60–96; PULSE 79–106; RESP 10–26; TEMP 36.6–37.5; O2SAT 92–99
[2024-04-10 06:42] LABS: Abs Immature Grans 0.02 10^3/uL (0.0-0.06); Absolute Basophil Count 0.04 10^3/uL (0.0-0.2); Absolute Eosinophil Count 0.08 10^3/uL (0.0-0.7); Absolute Monocyte Count 0.23 10^3/uL (0.1-0.8); Absolute Neutrophil Count 2.66 10^3/uL (1.2-6.7); Basophils % 1.1 %; Eosinophils % 2.1 %; HCT 29.1 % (40.0-50.0); Immature Grans % 0.5 %; Lymphocytes % 18.8 %; MCH 35.6 pg (27.0-33.0); MCHC 34.4 % (32.0-36.0); MCV 104 fL (80-95); MPV 11.3 fL (8.0-11.0); Monocytes % 6.2 %; Neutrophils % 71.3 %; Platelet Count 102 10^3/uL (130-400); RBC 2.81 10^6/uL (4.36-5.78); RDW 11.9 % (11.8-14.1); RDW-SD 45.3 fL; WBC 3.73 10^3/uL (4.4-10.8)
[2024-04-10 07:06] LABS: ALT 88 U/L (16-63); AST 79 U/L (15-37); Alkaline Phosphatase 97 U/L (46-116); Anion Gap 8.6 mmol/L (3-11); BUN 10 mg/dL (7-18); Bilirubin, Total 1.1 mg/dL (0.2-1.0); CO2 25.4 mmol/L (21.0-32.0); CREATININE 0.9 mg/dL (0.70-1.30); Chloride 102 mmol/L (98-107); Estimated GFR 108.01 (mL/min/1.73m2); Glucose 95 mg/dL (74-106); Magnesium 2.1 mg/dL (1.8-2.4); Potassium 3.2 mmol/L (3.5-5.1); Sodium 136 mmol/L (136-145); Total Protein 6.1 g/dL (6.4-8.2)
[2024-04-10] MEDS: Normal Saline Flush 10 ML SYR IVP ×4 (07:59→21:16)
[2024-04-10] MEDS: POTASSIUM CHLORIDE 10 MEQ/100 ML BAG 100 MEQ IVINF ×3 (07:59→10:11)
[2024-04-10] MEDS: Vitamins B Comp w/C TAB 1 TAB PO (08:00)
[2024-04-10] MEDS: Thiamine 100 MG TAB PO (08:00)
[2024-04-10] MEDS: Spironolactone 50 MG TAB PO (08:00)
[2024-04-10] MEDS: Sertraline 100 MG TAB 200 MG PO (08:00)
[2024-04-10] MEDS: Potassium Chloride Liquid 20 MEQ PKT PO ×2 (08:00→14:18)
[2024-04-10] MEDS: Gabapentin 800 MG TAB PO ×3 (08:00→21:14)
[2024-04-10] MEDS: Pantoprazole 40 MG TABCR PO (08:01)
[2024-04-10] MEDS: Multivitamin TAB 1 TAB PO (08:01)
[2024-04-10] MEDS: Folic Acid 1 MG TAB PO (08:01)
[2024-04-10] MEDS: Cyanocobalamin 500 MCG TAB PO (08:01)
[2024-04-10] MEDS: OLANZapine 5 MG TAB PO (08:01)
--- NOTE | 2024-04-10 09:53 | PDOC.CMPRO ---
Date of service: 04/10/24 Time of Service: 09:53 Care Management Progress Note Progress Note Text Progress Note Text: S/O: Mc was lying in bed when CM met with him. He stated that he is feeling better today, and that per MD, he will likely be ready for discharge tomorrow. He stated that he is happy with this plan, and plans to continue sobriety at home. CM discussed services available in the community, including the [facility], as well as local and online support groups. He stated that he has a counselor and will discuss the options with her. He also identified his mother and sister as supports who will help him with his recovery. CM will continue to follow. A: Mc is a 43 year old male admitted to [facility] on 04/08/24 for acute alcohol w/d, alcoholic cirrhosis of liver. P: Mc will return home when ready per MD; ELEN to offer [facility] resources and coordination support. Mc will follow up with his PCP and have an outpatient referral to GI for cirrhosis, varices and portal HTN. CM will continue to follow. SDOH(Care Management) Screening Will the Patient Participate in the Screening?: Yes Do you worry about having a steady place to live?: no Problems where you live: inadequate lighting In the past 12 months, have you had to go without electric, gas, oil or water in your home?: no Have you or anyone in your house had to go without enough food to eat?: no Has lack of transportation kept you from medical appointments or from doing things needed for daily living?: yes Has anyone in your support network made you feel unsafe for any reason?: no Health Related Social Needs Health related social needs: inadequate housing(Z59.1) and transportation insecurity(Z59.82)
[2024-04-10] MEDS: Acetaminophen 325 MG TAB PO (09:56)
--- NOTE | 2024-04-10 12:39 | W.PM.PROGNOT ---
Date of Service Date of service: 04/10/24 Time of Service: 12:39 Assessment and Plan Assessment and plan (1) Alcohol withdrawal: Status: Acute Assessment and plan: phenobarbital cumulative dose this morning was at 1320 mg (calculated soft stop is 1200 mg (or 15 mg/kg IBW w/ his IBW being 80 kg), hard stop of 20 mg/kg is calculated at 1600 mg. His RASS score has been 0 to -1. CIWA 7 to 8. Patient was written yesterday for transfer to med/surg. I think that his acute alcohol withdrawal symptoms have subsided, his phenobarbital level drawn last night is low end of therapeutic at 15.2, last prn dose of phenobarbital was 20:30 last night. I think that he could be discharged soon. I am still working on replacing his potassium and I have resumed his spironolactone. I will add low dose BB for his portal hypertension and monitor him overnight and plan for dc tomorrow. 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 Qualifiers: Complication of substance-induced condition: uncomplicated Qualified Code(s): F10.930 - Alcohol use, unspecified with withdrawal, uncomplicated (2) Right middle lobe pulmonary infiltrate: Status: Acute Assessment and plan: CTR 2 gm iv daily, IS, acapella; will treat empirically x 5 days; repeat CXR in 2 to 3 weeks. He can be switched from iv ceftriaxone to oral omnicef and treat for 2 more days. repeat CXR as outpatient. (3) Alcoholic cirrhosis of liver: Status: Acute Qualifiers: Ascites presence: without ascites Qualified Code(s): K70.30 - Alcoholic cirrhosis of liver without ascites (4) Depression: Status: Chronic Assessment and plan: patient admits to depression but denies any SI. he usually takes olanzapine and sertraline. Sertraline increased to 200 mg daily yesterday. Qualifiers: Depression Type: major depressive disorder Major depression recurrence: recurrent Active/Remission status: currently active Major depression episode severity: mild Qualified Code(s): F33.0 - Major depressive disorder, recurrent, mild (5) Hypokalemia: Status: Acute Assessment and plan: patient is still hypokalemic w/ K 3.2 and will get further oral replacement. continue to monitor, hopefully will improve w/ resumption of his spironolactone. (6) Hypomagnesemia: Status: Resolved Assessment and plan: Mg now at 2.3; I have put his oral dose on hold for now and will recheck in the a.m. (7) Esophageal varices: Status: Acute Assessment and plan: secondary to portal HTN, he was unaware of this dx; will put him on protonix for protection from any alcohol induced gastritis/esophagitis; when he is stable from his acute withdrawal he should be on nonselective BB for portal hypertension and referred to GI for EGD, and banding vs TIPS. will start on low dose nadolol Qualifiers: Esophageal varices type: secondary Esophageal varices bleeding: without bleeding Qualified Code(s): I85.10 - Secondary esophageal varices without bleeding Subjective Subjective Interval history since last seen: Mc states that he is feeling better. No nausea, diarrhea has improved bowels are more like toothpaste consistency. Tremors have improved. Exam Narrative Exam Narrative: Mc is sitting up in his chair watching TV. He seems calm, not diaphoretic, he is more engaged today (I told him that I had increased his sertraline so hopefully this will help w/ his depression) No visible tremors in his hands, normal ROM; he is a little slow in his finger to nose but no past pointing and no tremors or weakness Objective Last Vital Signs Temp 37.5 C 04/10/24 07:11 Pulse 95 H 04/10/24 09:01 Resp 15 04/10/24 10:02 BP 110/96 H 04/10/24 10:02 Pulse Ox 97 04/10/24 08:01 Laboratory Results - last 24 hr 04/09/24 04/10/24 04/10/24 22:03 05:51 05:51 WBC 3.73 L RBC 2.81 L Hgb 10.0 L Hct 29.1 L MCV 104 H MCH 35.6 H MCHC 34.4 RDW 11.9 Plt Count 102 L MPV 11.3 H Immature Gran % 0.5 Neutrophils % 71.3 Lymphocytes % 18.8 Monocytes % 6.2 Eosinophils % 2.1 Basophils % 1.1 Nucleated RBC % 0.0 Absolute Neutrophils 2.66 Absolute Lymphocytes 0.70 L Absolute Monocytes 0.23 Absolute Eosinophils 0.08 Absolute Basophils 0.04 Sodium 136 Potassium 3.2 L Chloride 102 Carbon Dioxide 25.4 Anion Gap 8.6 BUN 10 Creatinine 0.9 Est GFR (CKD-EPI 2020) 108.01 Glucose 95 Calcium 8.0 L Magnesium 2.1 Cancelled Total Bilirubin 1.1 H AST 79 H ALT 88 H Alkaline Phosphatase 97 Total Protein 6.1 L Albumin 3.0 L Phenobarbital 15.2 Reviewed Pertinent PMH: Yes Objective Narrative Objective Narrative: K is still low at 3.2 and I have resumed his spironolactone and he is getting potassium replacement PAWSS Have you Been Recently Intoxicated or Drunk Within the Last 30 days?: Yes Have you Ever Experienced Previous Episodes of Alcohol Withdrawal?: Yes Have you ever Experienced Withdrawal Seizures?: Yes Have you ever Experienced Delirium Tremens(DT)s?: No Have you ever undergone Alcohol Rehabilitation Treatment (i.e, inpt ot outpatient treatment programs)?: Yes Have you ever Experienced Blackouts?: Yes Have you ever Combined Alcohol with other Downers within the last 90 days?: No Have you ever Combined Alcohol with any other Substance of Abuse during the last 90 days?: No Positive Blood Alcohol level on Presentation? [PCS.BAL]: No Evidence of Increased Autonomic Activity (i.e. HR>120, tremor, sweating, agitation, nausea)?: Yes Result: 6 Time Spent with Patient Time Spent with Patient: 25-34 minutes Time was spent: preparing to see the patient(eg.review tests), ordering medications,tests, procedures, referring, communicating with other health healthcare receptionist, indepentently interpreting results, counseling the patient and care coordination
[2024-04-10 16:20] LABS: Potassium 4.2 mmol/L (3.5-5.1)
[2024-04-10] MEDS: PHENobarbital 130 MG/ML VIAL IVP ×2 (17:16→17:48)
[2024-04-10] MEDS: Cefdinir 300 MG CAP PO (21:13)
[2024-04-10] MEDS: Prazosin 1 MG CAP 2 MG PO (21:14)
[2024-04-10] MEDS: traZODone 50 MG TAB 150 MG PO (21:14)
[2024-04-11 03:43] VITALS: BP 105/78; PULSE 88; RESP 16; TEMP 36.9; O2SAT 97
[2024-04-11 06:38] LABS: Abs Immature Grans 0.04 10^3/uL (0.0-0.06); Absolute Basophil Count 0.04 10^3/uL (0.0-0.2); Absolute Lymphocyte Count 0.96 10^3/uL (1.2-3.4); Absolute Monocyte Count 0.31 10^3/uL (0.1-0.8); Absolute Neutrophil Count 2.52 10^3/uL (1.2-6.7); Eosinophils % 2.5 %; HCT 30.7 % (40.0-50.0); HGB 10.4 g/dL (13.5-17.5); Lymphocytes % 24.2 %; MCH 35.7 pg (27.0-33.0); MCHC 33.9 % (32.0-36.0); MPV 10.8 fL (8.0-11.0); Monocytes % 7.8 %; Neutrophils % 63.5 %; Platelet Count 110 10^3/uL (130-400); RBC 2.91 10^6/uL (4.36-5.78); RDW 12.3 % (11.8-14.1); RDW-SD 46.4 fL; WBC 3.97 10^3/uL (4.4-10.8)
[2024-04-11 06:46] LABS: MCV 106 fL (80-95)
[2024-04-11 07:03] LABS: ALT 87 U/L (16-63); AST 67 U/L (15-37); Alkaline Phosphatase 101 U/L (46-116); Anion Gap 9.3 mmol/L (3-11); BUN 9 mg/dL (7-18); CO2 24.7 mmol/L (21.0-32.0); Calcium 8.3 mg/dL (8.5-10.1); Chloride 103 mmol/L (98-107); Estimated GFR 95.18 (mL/min/1.73m2); Glucose 95 mg/dL (74-106); Magnesium 1.7 mg/dL (1.8-2.4); Potassium 3.7 mmol/L (3.5-5.1); Sodium 137 mmol/L (136-145)
[2024-04-11 07:44] VITALS: BP 107/85; PULSE 75; RESP 18; TEMP 37.3; O2SAT 97
[2024-04-11] MEDS: Sertraline 100 MG TAB 200 MG PO (07:49)
[2024-04-11] MEDS: Pantoprazole 40 MG TABCR PO (07:50)
[2024-04-11] MEDS: Cyanocobalamin 500 MCG TAB PO (07:50)
[2024-04-11] MEDS: Cefdinir 300 MG CAP PO (07:50)
[2024-04-11] MEDS: Gabapentin 800 MG TAB PO (07:50)
[2024-04-11] MEDS: OLANZapine 5 MG TAB PO (07:50)
[2024-04-11] MEDS: Nadolol 40 MG TAB 20 MG PO (07:51)
[2024-04-11] MEDS: Vitamins B Comp w/C TAB 1 TAB PO (07:51)
[2024-04-11] MEDS: Multivitamin TAB 1 TAB PO (07:51)
[2024-04-11] MEDS: Folic Acid 1 MG TAB PO (07:52)
[2024-04-11] MEDS: Spironolactone 50 MG TAB PO (07:52)
[2024-04-11] MEDS: Thiamine 100 MG TAB PO (07:52)
[2024-04-11] MEDS: Normal Saline Flush 10 ML SYR IVP (07:54)
--- NOTE | 2024-04-11 08:51 | DSE_ITS ---
Date of service: 04/11/24 Time of Service: 09:54 DS: Diagnosis Discharge Diagnosis (1) Alcohol withdrawal: Status: Acute Asessment and Plan: Patient presented with signs and symptoms consistent with alcohol withdrawal -received loading dose of phenobarbital in the emergency department and was admitted to the intensive care unit while receiving IV phenobarbital which was ultimately transitioned to p.o. -patient did maxed out on his dose of phenobarbital but did ultimately have significant improvement and resolution of his withdrawal symptoms. (2) Right middle lobe pulmonary infiltrate: Status: Acute Asessment and Plan: -Additionally, he was also found to have a right middle lobe pneumonia for which she was treated with ceftriaxone. -Ultimately was determined that the patient was stable for discharge home (3) Alcoholic cirrhosis of liver: Status: Acute (4) Depression: Status: Chronic (5) Hypokalemia: Status: Acute (6) Hypomagnesemia: Status: Resolved (7) Esophageal varices: Status: Acute Asessment and Plan: -started on nadolol Discharge Plan Disposition Patient Disposition: Home Condition: Good Discharge Details Reason For Visit: Acute Alcohol Withdrawl Admit Date/Time: 04/08/24 13:55 Admit Provider: Luther Ramires Attending Provider: Luther Ramires Primary Care Provider: Sally De Leon Hospital Course Hospital Course: Patient presented with signs and symptoms consistent with alcohol withdrawal. He received loading dose of phenobarbital in the emergency department and was admitted to the intensive care unit while receiving IV phenobarbital which was ultimately transitioned to p.o. While hospitalized patient did maxed out on his dose of phenobarbital but did ultimately have significant improvement and resolution of his withdrawal symptoms. Additionally, he was also found to have a right middle lobe pneumonia for which she was treated with ceftriaxone. Ultimately was determined that the patient was stable for discharge home Home Meds and New Rx's Prescriptions: New nadolol [Corgard] 40 mg Tablet 20 mg PO DAILY Qty: 90 0RF Continued olanzapine 5 mg tablet 5 mg PO DAILY prazosin 2 mg capsule 2 mg PO HS Patient Comments: TAKE 1 CAPSULE BY MOUTH AT BEDTIME, last took 2 days ago at night thiamine mononitrate (vit B1) 100 mg tablet 100 mg PO DAILY Qty: 30 0RF pantoprazole 40 mg Tablet,Delayed Release (Dr/Ec) 40 mg PO DAILY folic acid 1 mg Tablet 1 mg PO DAILY vitamin B6-vitamin E-magnesium Tablet 1 tab PO DAILY mecobalamin (vitamin B12) [B12 Active] 1,000 mcg Tablet,Chewable 500 mcg PO DAILY Patient Comments: Uses the capsules now 02/01/2023 CT hydroxyzine pamoate 50 mg capsule 1 cap PO QID Patient Comments: TAKE 1 CAPSULE BY MOUTH EVERY 4 HOURS NEEDED. NOT TO EXCEED 02/16 gabapentin 800 mg Tablet 800 mg PO TID sertraline 100 mg tablet 100 mg PO DAILY Patient Comments: TAKE 1 TABLET BY MOUTH DAILY IN THE MORNING trazodone 150 mg tablet 150 mg PO HS Patient Comments: TAKE 1 TABLET BY MOUTH AT BEDTIME spironolactone 50 mg tablet 50 mg PO DAILY Discharge Instructions Stand Alone Forms: Nursing Discharge Form Referrals: Sally De Leon DO [Primary Care Provider] - 04/23/24 9:15 am Activity:: Activity as Tolerated Equipment/Supplies:: No Equipment Needed Diet:: As Tolerated Discharge Orders Discharge Orders: Discharge Order (Routine); Ordered 04/11/24 Ordered By: Ac Peace DS: Summary Time Spent with Patient providing and/or coordinating discharge services: Greater than 30 minutes Status at Discharge Functional status at discharge: independent ambulation Overall status at discharge: patient is back to baseline Mental Status: mental status grossly normal Speech and Movement: speech and movement normal Mood: congruent mood Affect: normal affect Quality:SDOH Health Related Social Needs: Health related social needs inadequate housing, transp o insecurity Exam Narrative Exam Narrative: well appearing gentleman laying in bed in no acute distress, AOx4, heart RRR, lungs CTAB, abdomen soft, non-tender, non-distended Psych Mental Status: mental status grossly normal Speech and Movement: speech and movement normal Mood: congruent mood Affect: normal affect DS: Data Vitals/I&O Vitals and I&O: Vital Signs Temperature 99.1 F 04/11/24 07:44 Temperature Source Tympanic 04/11/24 07:44 Pulse 75 04/11/24 07:44 Pulse Rhythm Regular 04/11/24 07:59 Pulse 84 04/10/24 13:01 Respiratory Rate 18 04/11/24 07:44 Respiratory Effort Normal, Non-Labored 04/11/24 07:59 Respiratory Depth Normal 04/11/24 07:59 Respiratory Pattern Normal 04/11/24 07:59 Blood Pressure 107/85 04/11/24 07:44 Blood Pressure Mean 80 04/10/24 13:01 Blood Pressure Position Supine 04/10/24 07:11 Pulse Oximetry 97 04/11/24 07:44 Respiratory End-tidal CO2 34 04/09/24 00:00 Oxygen Delivery Method Room Air 04/11/24 07:44 Oxygen Flow Rate 0 04/11/24 07:44 Pain Level 5 04/11/24 07:44 Comment suspected FE as evidenced by prev desat while sleeping 04/09/24 22:42 Intake & Output 04/10/24 04/11/24 04/11/24 17:59 05:59 17:59 Intake Total 1700 / 1700 20 20 Output Total 1275 / 1275 Balance 425 / 425 Weight 242 lb 8.136 oz Intake: IV 200 / 200 20 Oral 1500 / 1500 Output: Urine 1025 / 1025 Stool 250 / 250 Other: Urine Color Yellow Urine Appearance Clear Clear Clear Comment per patient voided in toilet voided in toilet Stool Characteristics Liquid Data Completed and Pending Labs on day of discharge: Labs from last 24 hours 04/11/24 04/11/24 04/10/24 06:08 06:08 16:05 WBC 3.97 L RBC 2.91 L Hgb 10.4 L Hct 30.7 L MCV 106 H MCH 35.7 H MCHC 33.9 RDW 12.3 Plt Count 110 L MPV 10.8 Immature Gran % 1.0 Neutrophils % 63.5 Lymphocytes % 24.2 Monocytes % 7.8 Eosinophils % 2.5 Basophils % 1.0 Nucleated RBC % 0.0 Absolute Neutrophils 2.52 Absolute Lymphocytes 0.96 L Absolute Monocytes 0.31 Absolute Eosinophils 0.10 Absolute Basophils 0.04 Sodium 137 Potassium 3.7 4.2 D Chloride 103 Carbon Dioxide 24.7 Anion Gap 9.3 BUN 9 Creatinine 1.0 Est GFR (CKD-EPI 2020) 95.18 Glucose 95 Calcium 8.3 L Magnesium Cancelled 1.7 L Total Bilirubin 1.0 AST 67 H ALT 87 H Alkaline Phosphatase 101 Total Protein 6.0 L Albumin 3.0 L PFSH All Active Problems (Updated 04/09/24 @ 12:45 by Luther Ramires MD) Esophageal varices (Acute) Right middle lobe pulmonary infiltrate (Acute) Alcoholic cirrhosis of liver (Acute) Alcohol withdrawal (Acute) 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) Internal derangement of left knee (Acute ~04/18/23) Hypokalemia (Acute) Macrocytic anemia (Acute) Suicidal ideation (Acute) Alcohol abuse with intoxication (Acute) Depression (Chronic) Alcohol withdrawal (Acute) Anemia (Chronic) Bilateral lower extremity edema (Acute) Cirrhosis of liver (Chronic) Medical History Tobacco abuse Alcohol abuse Suicide attempt Pancreatitis GERD (gastroesophageal reflux disease) Cirrhosis of liver Surgical History S/P abdominal paracentesis S/P hernia repair Family History Mother Heart disease Stroke Diabetes Hypertension Maternal Grandfather Diabetes Hypertension Maternal Grandmother Hypertension Social History Smoking/Tobacco Use Status: Current every day Tobacco Type: cigarettes Smoking packs per day: 2 Smoking cigarettes per day: 40.0 Counseling given: provider counseling and support medications Smoking risk assessment performed?: Yes Alcohol Intake: current Alcohol Intake frequency: 3 or more drinks per day Alcohol type: hard liquor Drug use: Never Substance use type: marijuana Housing: apartment Current gender identity: male Do you feel safe at home: Yes Do you feel safe in your relationship?: Yes Additional Social history: lives with mom and sister, sister in room. Time Spent with Patient Time Spent with Patient: <45 minutes Time was spent: preparing to see the patient(eg.review tests), obtaining and/or reviewing separately otained hiistory, ordering medications,tests, procedures, referring, communicating with other health healthcare administrative assistant, indepentently interpreting results, counseling the patient and care coordination
--- NOTE | 2024-04-11 17:34 | CMDISCH_ITS ---
Date of service: 04/11/24 Time of Service: 17:34 LACE Index Scoring Tool Questions: Length of Stay (in days): 3 Was the patient admitted via the E.D.?: Yes Comorbidities: Liver or Renal Disease E.D. Visits: 0 Answers: Total Score: 11 Risk of Readmission: High Risk Care Management Discharge Plan Reason for Hospitalization: Acute alcohol withdrawal, Alcoholic cirrhosis of liver Discharge Plan: Mc returned home today with no new services. He was driven home via private vehicle by family. CM discussed recovery services through [facility]; he stated that he will discuss his recovery with his therapist. He will follow up with his PCP and discharge plan of care. He was happy to be going home. Patient/Family Education Needs: Review discharge instructions and limitations, discussion of self care needs including ask me three. SDOH Health Related Social Needs: Health related social needs inadequate housing, transp o insecurity Health related social needs: inadequate housing(Z59.1) and transportation insecurity(Z59.82)
== END 2024-04-11 10:24 | disposition home or self-care (01) | DRG 896 ==
LOC: ER 13:57 → ICU 14:39 → MS 04-10 14:06
PROVIDERS: Family Medicine; Admitting Provider Internal Medicine; Emergency Provider Registered Nurse Emergency; PCP Internal Medicine; Visit Provider Internal Medicine
DX: F10.230 Alcohol dependence with withdrawal, uncomplicated (principal); J18.9 Pneumonia, unspecified organism; F33.0 Major depressive disorder, recurrent, mild; I85.10 Secondary esophageal varices without bleeding; K76.6 Portal hypertension; K70.30 Alcoholic cirrhosis of liver without ascites; E87.6 Hypokalemia; E83.42 Hypomagnesemia; M22.42 Chondromalacia patellae, left knee; D53.9 Nutritional anemia, unspecified; K21.9 Gastro-esophageal reflux disease without esophagitis; F17.210 Nicotine dependence, cigarettes, uncomplicated; F12.90 Cannabis use, unspecified, uncomplicated; R60.0 Localized edema; Z91.51 Personal history of suicidal behavior
CPT/HCPCS: 00123; 36415; 80048; 80053; 80307; 83690; 93005; 96365; 96366; 96367; 96375; 99285; 71046; 74177; 80184; 80320; 80329; 81003; 81015; 82140; 83605; 83735; 84100; 84132; 84484; 85025; 85610; 85730; 93010; 99231; 99232; 99238; 99291; J0696; J2060; J2405; J2470; J2560; J3411; J3475; J3480

== ENCOUNTER 2024-08-19 02:29 | Outpatient (CLI) | payer MEDICARE, SELFPAY ==
[2024-08-19 11:54] LABS: HCT 45.4 % (40.0-50.0); HGB 15.3 g/dL (13.5-17.5); MCH 34.1 pg (27.0-33.0); MCHC 33.7 % (32.0-36.0); MCV 101 fL (80-95); MPV 10.2 fL (8.0-11.0); Platelet Count 162 10^3/uL (130-400); RBC 4.49 10^6/uL (4.36-5.78); RDW 13.4 % (11.8-14.1); RDW-SD 49.9 fL; WBC 5.82 10^3/uL (4.4-10.8)
[2024-08-19 12:05] LABS: INR 1.1 (0.9-1.1); Prothrombin Time 10.7 sec (9.1-11.1)
[2024-08-19 12:59] LABS: ALT 27 U/L (16-63); AST 16 U/L (15-37); Albumin 3.8 g/dL (3.4-5.0); Alkaline Phosphatase 92 U/L (46-116); Anion Gap 6.5 mmol/L (3-11); BUN 14 mg/dL (7-18); Bilirubin, Total 0.53 mg/dL (0.2-1.0); CO2 30.5 mmol/L (21.0-32.0); CREATININE 1.5 mg/dL (0.70-1.30); Calcium 9.5 mg/dL (8.5-10.1); Chloride 101 mmol/L (98-107); Estimated GFR 58.51 (mL/min/1.73m2); Glucose 119 mg/dL (74-106); Potassium 3.6 mmol/L (3.5-5.1); Sodium 138 mmol/L (136-145); Total Protein 7.4 g/dL (6.4-8.2)
== END 2024-08-19 02:30 | disposition home or self-care (01) ==
LOC: LBO 02:29
PROVIDERS: PCP Internal Medicine; Visit Provider Internal Medicine
DX: K70.31 Alcoholic cirrhosis of liver with ascites (principal)
CPT/HCPCS: 36415; 80053; 85027; 85610

== ENCOUNTER 2024-11-04 01:37 | Outpatient (CLI) | payer MEDICARE, SELFPAY ==
--- NOTE | 2024-11-04 | DI.US_ITS ---
Exam(s) US ABDOMEN LIMITED EXAM: US ABDOMEN LIMITED CLINICAL HISTORY: ALCOHOLIC CIRRHOSIS LIVER, K70.30 SURVEILLANCE/SCREENING HCC TECHNIQUE: Ultrasound abdomen performed using standard protocol. COMPARISON: US US ABDOMEN LIMITED from 03/19/[address] ABDOMEN PELVIS W from 04/08/2024 FINDINGS: There is no ascites evident. LIVER: Liver is hyperechoic indicating steatosis. There no discrete focal hepatic lesions identified . Liver size is upper normal. GALLBLADDER/BILIARY: There are no gallstones. No gallbladder wall edema nor pericholecystic fluid. The common hepatic duct isnot dilated, measuring 5-6mm at the level of samuel hepatis. PANCREAS: There is no evidence of pancreatic mass nor dilatation of the pancreatic duct. RIGHT KIDNEY:No evidence of solid mass, calculus, nor hydronephrosis. No cortical cysts evident. IMPRESSION: 1. No evidence of cholelithiasis nor dilatation of the biliary tree. 2. Hepatic steatosis. Mildly enlarged liver. No focal hepatic lesions evident. 3. No other right upper quadrant ultrasound findings and there is no ascites. DATA REPOSITORY:
== END 2024-11-04 01:57 ==
LOC: DI 01:38
PROVIDERS: PCP Internal Medicine; Visit Provider Internal Medicine
DX: K70.30 Alcoholic cirrhosis of liver without ascites (principal)
CPT/HCPCS: 76705

== ENCOUNTER 2024-11-04 13:53 | Outpatient (CLI) | payer MEDICARE, SELFPAY ==
[2024-11-04 13:57] LABS: Abs Immature Grans 0.02 10^3/uL (0.0-0.06); Absolute Basophil Count 0.02 10^3/uL (0.0-0.2); Absolute Eosinophil Count 0.07 10^3/uL (0.0-0.7); Absolute Lymphocyte Count 1.28 10^3/uL (1.2-3.4); Absolute Monocyte Count 0.47 10^3/uL (0.1-0.8); Absolute Neutrophil Count 3.16 10^3/uL (1.2-6.7); Basophils % 0.4 %; Eosinophils % 1.4 %; HCT 45.2 % (40.0-50.0); HGB 15.9 g/dL (13.5-17.5); Immature Grans % 0.4 %; Lymphocytes % 25.5 %; MCH 35.3 pg (27.0-33.0); MCHC 35.2 % (32.0-36.0); MCV 100 fL (80-95); MPV 9.5 fL (8.0-11.0); Monocytes % 9.4 %; Neutrophils % 62.9 %; Platelet Count 165 10^3/uL (130-400); RDW 12.2 % (11.8-14.1); RDW-SD 45.8 fL; WBC 5.02 10^3/uL (4.4-10.8)
[2024-11-04 14:12] LABS: INR 1.1 (0.9-1.1); Prothrombin Time 10.8 sec (9.1-11.1)
[2024-11-04 14:17] LABS: ALT 30 U/L (16-63); AST 27 U/L (15-37); Albumin 4.1 g/dL (3.4-5.0); Alkaline Phosphatase 84 U/L (46-116); Anion Gap 8.1 mmol/L (3-11); BUN 10 mg/dL (7-18); Bilirubin, Total 0.94 mg/dL (0.2-1.0); CO2 29.9 mmol/L (21.0-32.0); CREATININE 1.5 mg/dL (0.70-1.30); Calcium 9.2 mg/dL (8.5-10.1); Chloride 104 mmol/L (98-107); Estimated GFR 58.51 (mL/min/1.73m2); Glucose 110 mg/dL (74-106); Potassium 3.8 mmol/L (3.5-5.1); Sodium 142 mmol/L (136-145); Total Protein 7.8 g/dL (6.4-8.2)
== END 2024-11-04 13:54 | disposition home or self-care (01) ==
LOC: LBO 13:53
PROVIDERS: PCP Internal Medicine; Visit Provider Internal Medicine
DX: K70.31 Alcoholic cirrhosis of liver with ascites (principal)
CPT/HCPCS: 36415; 80053; 85025; 85610

== ENCOUNTER 2024-11-17 16:07 | Outpatient (CLI) | payer MEDICARE, SELFPAY ==
--- NOTE | 2024-11-17 16:23 | DI.RAD_ITS ---
Exam(s) XR CHEST 2V PA LATERAL EXAM: XR CHEST 2V PA LATERAL CLINICAL HISTORY: R05.9 Cough x 4days TECHNIQUE: 2D digital imaging was performed of the chest. Three images were obtained. PA and later al views were obtained. COMPARISON: CR XR CHEST 2V PA LATERAL from 04/08/2024 FINDINGS: MEDIASTINUM: Normal. HEART: Normal. PULMONARY VASCULATURE: Normal. LUNGS: Clear. PLEURAL SPACE: No pleural effusion or pneumothorax. BONE:Within normal limits for the patient's age. OTHER FINDINGS:Normal. IMPRESSION: No acute pulmonary findings. DATA REPOSITORY: RADIATION DOSE DELIVERED:
--- NOTE | 2024-11-17 17:10 | DI.VRAD_ITS ---
PROCEDURE INFORMATION: Exam: XR Chest Exam date and time: 11/17/2024 4:12 PM Age: 43 years old Clinical indication: Other: Cough x 4days TECHNIQUE: Imaging protocol: Radiologic exam of the chest. Views: 2 views. COMPARISON: CR XR CHEST 2V PA LATERAL 04/08/2024 2:01 PM FINDINGS: Lungs: There is no pulmonary vascular congestion. There is mild central peribronchial thickening. No pulmonary parenchymal airspace opacities are identified. Pleural spaces: There are no pleural effusions present. There is no evidence of pneumothorax. Heart/Mediastinum: The cardiomediastinal silhouette is within normal limits. Bones/joints: Unremarkable. IMPRESSION: 1. Mild central peribronchial thickening, could reflect bronchitis. Recommend clinical correlation. 2. No pulmonary parenchymal airspace opacities identified. Dictated and Authenticated by: Cosme Fatima MD. Ordering:MEG SHARIF MD
== END 2024-11-17 16:27 ==
LOC: DI 16:08
PROVIDERS: PCP Internal Medicine; Visit Provider Nurse Practitioner Family
DX: R05.9 Cough, unspecified (principal)
CPT/HCPCS: 71046

== ENCOUNTER 2025-05-22 15:37 | Outpatient (CLI) | payer SELFPAY ==
[2025-05-22 16:06] LABS: HCT 40.8 % (40.0-50.0); HGB 14.6 g/dL (13.5-17.5); MCH 36.1 pg (27.0-33.0); MCHC 35.8 % (32.0-36.0); MCV 101 fL (80-95); MPV 10.6 fL (8.0-11.0); Platelet Count 227 10^3/uL (130-400); RBC 4.04 10^6/uL (4.36-5.78); RDW 12.2 % (11.8-14.1); RDW-SD 45.6 fL
[2025-05-22 16:29] LABS: Prothrombin Time 10.4 sec (9.1-11.1)
[2025-05-22 16:38] LABS: ALT 50 U/L (16-63); AST 38 U/L (15-37); Albumin 4.1 g/dL (3.4-5.0); Alkaline Phosphatase 92 U/L (46-116); Anion Gap 10.9 mmol/L (3-11); BUN 14 mg/dL (7-18); Bilirubin, Total 1.1 mg/dL (0.2-1.0); CO2 29.1 mmol/L (21.0-32.0); CREATININE 1.2 mg/dL (0.70-1.30); Calcium 9.6 mg/dL (8.5-10.1); Calculated LDL 132 mg/dL (<100); Chloride 95 mmol/L (98-107); Cholesterol 216 mg/dL (<200); Glucose 115 mg/dL (74-106); HDL Cholesterol 70 mg/dL (>or=40); Potassium 3.2 mmol/L (3.5-5.1); Sodium 135 mmol/L (136-145); Total Protein 7.9 g/dL (6.4-8.2); Triglyceride 70 mg/dL (<150)
== END 2025-05-22 15:38 | disposition home or self-care (01) ==
LOC: LBO 15:47
PROVIDERS: PCP Internal Medicine; Visit Provider Internal Medicine
DX: K76.0 Fatty (change of) liver, not elsewhere classified (principal); Z13.220 Encounter for screening for lipoid disorders; Z51.81 Encounter for therapeutic drug level monitoring; D64.9 Anemia, unspecified
CPT/HCPCS: 36415; 80053; 80061; 85027; 85610